=== PATIENT | female | born 1935 | race Caucasian/White ===

== ENCOUNTER 2019-07-02 19:05 | Emergency (ER) | payer MEDICARE, BC ==
--- NOTE | 2019-07-02 20:36 | EDM.PDOC ---
ED HPI GENERAL MEDICAL PROBLEM - General Chief Complaint: Syncope Stated Complaint: LIGHT HEADED DIZZY NASEAU Time Seen by Provider: 07/02/19 19:54 Source of Information: Reports: Patient, Family, RN Notes Reviewed History Limitations: Reports: No Limitations - History of Present Illness INITIAL COMMENTS - FREE TEXT/NARRATIVE: 84-year-old female presents to the emergency department a complaint of lightheadedness, she has had 3 episodes of near syncope 1 has been with activity to have been at rest feels very lightheaded will get flushed some nausea has not fallen. Does have a problem with low heart rate was considered for pacemaker several years ago however cardiology felt it was not appropriate at that time. No history of diabetes denies pain Pain Score (Numeric/FACES): 0 - Related Data Allergies Allergy/AdvReac Type Severity Reaction Status Date / Time codeine Allergy Swelling Verified 07/02/19 19:59 fish oil Allergy Rash Verified 07/02/19 19:59 iodine Allergy Swelling Verified 07/02/19 19:59 povidone-iodine Allergy Swelling Verified 07/02/19 19:59 [From Betadine] soap [From Betadine] Allergy Swelling Verified 07/02/19 19:59 valacyclovir HCl Allergy Rash Verified 07/02/19 19:59 [From Valtrex] morphine AdvReac Hallucinati Verified 07/02/19 19:59 ons shrimp flavor Allergy Rash Uncoded 07/02/19 19:59 Home Meds: Home Meds Acetaminophen [Pain Reliever] 500 mg PO DAILY PRN 10/15/13 [History] Escitalopram [Lexapro] 10 mg PO DAILY 10/15/13 [History] Levothyroxine Sodium [Tirosint] 75 mcg PO DAILY 10/15/13 [History] Potassium Chloride [Klor-Con M20] 20 meq PO DAILY 10/15/13 [History] Pravastatin Sodium 20 mg PO BEDTIME 10/15/13 [History] Topiramate 100 mg PO DAILY 10/15/13 [History] Triamterene/Hydrochlorothiazid [Dyazide 37.5-25] 1 cap PO DAILY 10/15/13 [ History] allopurinoL [Zyloprim] 450 mg PO DAILY 10/15/13 [History] Montelukast [Singulair] 10 mg PO ONETIME 05/26/15 [History] Potassium Chloride [Klor-Con 10] 10 meq PO DAILY 10/28/14 [History] Triamcinolone Acetonide [Kenalog 0.1% Crm] 1 applic TOP BID PRN 12/04/14 [ History] Baclofen 10 mg PO ASDIRECTED 07/02/19 [History] Past Medical History HEENT History: Reports: Other (See Below) Other HEENT History: SORE LEFT NARE Cardiovascular History: Reports: Arrhythmia, High Cholesterol, Hypertension, Other (See Below) Other Cardiovascular History: LOW HEART RATE Respiratory History: Reports: Asthma Gastrointestinal History: Reports: Cholelithiasis, Diverticulosis, Other (See Below) Other Gastrointestinal History: dumping syndrome Genitourinary History: Reports: Pyelonephritis, UTI, Recurrent 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: Musculoskeletal History: Reports: Fracture, Other (See Below) Other Musculoskeletal History: H/O BROKEN TAILBONE AND LEFT LOWER LEG FX Neurological History: Reports: Other (See Below) Other Neuro History: tremors Psychiatric History: Reports: Anxiety, Depression Endocrine/Metabolic History: Reports: Other (See Below) Other Endocrine/Metabolic History: thyroid disease Dermatologic History: Reports: Other (See Below) Other Dermatologic History: rash - Infectious Disease History Infectious Disease History: Reports: Chicken Pox, Measles, Mumps, Rubella, Shingles - Past Surgical History GI Surgical History: Reports: Cholecystectomy, Colonoscopy, EGD, Hernia Repair/ Other, Other (See Below) Other GI Surgeries/Procedures: bile duct removed Female Surgical History: Reports: Hysterectomy Social & Family History - Tobacco Use Smoking Status *Q: Never Smoker - Caffeine Use Caffeine Use: Reports: Coffee, Tea - Recreational Drug Use Recreational Drug Use: No ED ROS GENERAL - Review of Systems Review Of Systems: See Below Constitutional: Reports: No Symptoms HEENT: Reports: No Symptoms Respiratory: Reports: No Symptoms Cardiovascular: Reports: Lightheadedness GI/Abdominal: Reports: Nausea ED EXAM, GENERAL - Physical Exam Exam: See Below Exam Limited By: No Limitations General Appearance: Alert, WD/WN, No Apparent Distress Head: Atraumatic, Normocephalic Neck: Normal Inspection, Supple, Non-Tender, Full Range of Motion Respiratory/Chest: No Respiratory Distress, Lungs Clear, Normal Breath Sounds, No Accessory Muscle Use, Chest Non-Tender Cardiovascular: Regular Rate, Rhythm, No Murmur GI/Abdominal: Soft, Non-Tender Course - Vital Signs Last Recorded V/S: Last Vital Signs Temp 97.9 F 07/02/19 20:10 Pulse 62 07/02/19 21:28 Resp 17 07/02/19 21:28 BP 177/84 H 07/02/19 21:28 Pulse Ox 98 07/02/19 21:28 - Orders/Labs/Meds Orders: Active Orders 24 hr Category Date Time Status Cardiac Monitoring [RC] .As Directed Care 07/02/19 20:33 Active EKG Documentation Completion [RC] ASDIRECTED Care 07/02/19 20:34 Active EKG 12 Lead [EK] Stat Ther 07/02/19 20:34 Ordered Labs: Laboratory Tests 07/02/19 07/02/19 07/02/19 Range/Units 20:45 20:45 20:45 WBC 8.3 (4.5-11.0) K/uL RBC 3.90 (3.30-5.50) M/uL Hgb 12.2 D (12.0-15.0) g/dL Hct 35.5 L (36.0-48.0) % MCV 91 (80-98) fL MCH 31 (27-31) pg MCHC 34 (32-36) % Plt Count 231 (150-400) K/uL Neut % (Auto) 60 (36-66) % Lymph % (Auto) 26 (24-44) % [place] % (Auto) 11 H (2-6) % Eos % (Auto) 2 (2-4) % Baso % (Auto) 0 (0-1) % D-Dimer, Quantitative 181 (0.0-400.0) ng/mL Sodium 132 L (140-148) mmol/L Potassium 3.0 L (3.6-5.2) mmol/L Chloride 95 L (100-108) mmol/L Carbon Dioxide 28 (21-32) mmol/L Anion Gap 12.0 (5.0-14.0) mmol/L BUN 11 D (7-18) mg/dL Creatinine 1.0 (0.6-1.0) mg/dL Est Cr Clr Drug Dosing 39.03 mL/min Estimated GFR (MDRD) 53 L (>60) Glucose 99 (74-106) mg/dL Calcium 8.7 (8.5-10.1) mg/dL Total Bilirubin 0.2 (0.2-1.0) mg/dL AST 18 (15-37) U/L ALT 20 (12-78) U/L Alkaline Phosphatase 73 (46-116) U/L Troponin I < 0.017 (0.000-0.056) ng/mL Total Protein 6.4 (6.4-8.2) g/dL Albumin 3.3 L (3.4-5.0) g/dL Globulin 3.1 (2.3-3.5) g/dL Albumin/Globulin Ratio 1.1 L (1.2-2.2) TSH, Ultra Sensitive (0.358-3.740) uIU/mL 07/02/19 Range/Units 20:45 WBC (4.5-11.0) K/uL RBC (3.30-5.50) M/uL Hgb (12.0-15.0) g/dL Hct (36.0-48.0) % MCV (80-98) fL MCH (27-31) pg MCHC (32-36) % Plt Count (150-400) K/uL Neut % (Auto) (36-66) % Lymph % (Auto) (24-44) % [place] % (Auto) (2-6) % Eos % (Auto) (2-4) % Baso % (Auto) (0-1) % D-Dimer, Quantitative (0.0-400.0) ng/mL Sodium (140-148) mmol/L Potassium (3.6-5.2) mmol/L Chloride (100-108) mmol/L Carbon Dioxide (21-32) mmol/L Anion Gap (5.0-14.0) mmol/L BUN (7-18) mg/dL Creatinine (0.6-1.0) mg/dL Est Cr Clr Drug Dosing mL/min Estimated GFR (MDRD) (>60) Glucose (74-106) mg/dL Calcium (8.5-10.1) mg/dL Total Bilirubin (0.2-1.0) mg/dL AST (15-37) U/L ALT (12-78) U/L Alkaline Phosphatase (46-116) U/L Troponin I (0.000-0.056) ng/mL Total Protein (6.4-8.2) g/dL Albumin (3.4-5.0) g/dL Globulin (2.3-3.5) g/dL Albumin/Globulin Ratio (1.2-2.2) TSH, Ultra Sensitive 4.032 H (0.358-3.740) uIU/mL Departure - Departure Time of Disposition: 22:13 Disposition: Home, Self-Care 01 Condition: Fair Clinical Impression: Lightheadedness Instructions: Near-Syncope, [id number] Referrals: Angela Cline PA-C [Primary Care Provider] - Forms: ED Department Discharge Additional Instructions: Please contact your lead data entry operator in the morning call return to the emergency department worsening of symptoms Sepsis Event Note - Evaluation Sepsis Screening Result: No Definite Risk - Focused Exam Vital Signs: Vital Signs Temp Pulse Resp BP Pulse Ox 07/02/19 21:28 62 17 177/84 H 98 07/02/19 20:12 53 L 10 L 135/67 97 07/02/19 20:10 97.9 F 58 L 16 159/72 H 96 07/02/19 19:33 97.9 F 58 L 16 159/72 H 96 Date Exam was Performed: 07/02/19 Time Exam was Performed: 22:11 - My Orders Last 24 Hours: My Active Orders 07/02/19 20:33 Cardiac Monitoring [RC] .As Directed 07/02/19 20:34 EKG Documentation Completion [RC] ASDIRECTED EKG 12 Lead [EK] Stat - Assessment/Plan Last 24 Hours: My Active Orders 07/02/19 20:33 Cardiac Monitoring [RC] .As Directed 07/02/19 20:34 EKG Documentation Completion [RC] ASDIRECTED EKG 12 Lead [EK] Stat Plan: Assessment Acuity = acute Site and laterality = lightheadedness Etiology = suspicious for underlying arrhythmia Manifestations = none Location of injury = Home Lab values = CBC unremarkable potassium low at 3.0 consistent hypokalemia, troponin was negative, d-dimer negative thyroid slightly elevated 4.032 consistent with hyperthyroidism Plan She did have an event while she was here when she became lightheaded while lying down she was on the monitoring analyst this did reveal an underlying heart rate of 60 but significant artifact was noted in between the QRS complex possibly a flutter and she did have symptoms. We were unable to capture this on EKG. I did offer hospital administration for observation she declined a plan that she is going to call her lead data entry operator in the morning and discussed the possibility of an implantable loop recorder she did wear an event monitor for 48 hours while in [place] unfortunately no events were captured to provide the diagnosis per her report This note was dictated using [employer] voice recognition software please call with any questions on syntax or grammar.
[2019-07-02 21:29] VITALS: BP 177/84; PULSE 62
== END 2019-07-02 22:46 | disposition home or self-care (01) ==
LOC: JP.ED 19:05
DX: R42 Dizziness and giddiness (principal); I10 Essential (primary) hypertension; E78.00 Pure hypercholesterolemia, unspecified; J45.909 Unspecified asthma, uncomplicated; F32.9 Major depressive disorder, single episode, unspecified; F41.9 Anxiety disorder, unspecified; E07.9 Disorder of thyroid, unspecified; Z88.8 Allergy status to other drugs, medicaments and biological substances; Z88.5 Allergy status to narcotic agent; Z88.1 Allergy status to other antibiotic agents; Z91.018 Allergy to other foods; Z79.899 Other long term (current) drug therapy; Z79.890 Hormone replacement therapy
CPT/HCPCS: 36415; 80053; 84443; 84484; 85025; 85379; 93005; 93010; 99284-25

== ENCOUNTER 2019-10-11 19:59 | Emergency (ER) | payer MEDICARE, BC ==
[2019-10-11 20:28] VITALS: BP 155/78; PULSE 56
[2019-10-11] MEDS ORDERED: Baclofen 10 MG Tab PO ONE (21:13)
[2019-10-11] MEDS ORDERED: Ketorolac 60 MG/2 ML SDV IM ONE (21:13)
--- NOTE | 2019-10-11 21:21 | EDM.PDOC ---
ED HPI GENERAL MEDICAL PROBLEM - General Chief Complaint: Back Pain or Injury Stated Complaint: BACK PAIN Time Seen by Provider: 10/11/19 21:17 Source of Information: Reports: Patient History Limitations: Reports: No Limitations - History of Present Illness INITIAL COMMENTS - FREE TEXT/NARRATIVE: pt arrived having signifcant pain in the left lower back area going over the left buttock. She did sit in a car all day today and she had a holter monitor placed. Onset: Gradual, Other (pt started to have pain on Sat. 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: Reports: Other (see below) Other Treatments JOINERY PATTERNMAKER: ibuprofen Lower Back Pain Score (Numeric/FACES): 10 - Related Data Allergies Allergy/AdvReac Type Severity Reaction Status Date / Time codeine Allergy Swelling Verified 10/12/19 20:22 fish oil Allergy Rash Verified 10/12/19 20:22 iodine Allergy Swelling Verified 10/12/19 20:22 oxycodone Allergy Hallucinati Verified 10/12/19 20:22 ons povidone-iodine Allergy Swelling Verified 10/12/19 20:22 [From Betadine] soap [From Betadine] Allergy Swelling Verified 10/12/19 20:22 valacyclovir HCl Allergy Rash Verified 10/12/19 20:22 [From Valtrex] morphine AdvReac Hallucinati Verified 10/12/19 20:22 ons shrimp flavor Allergy Rash Uncoded 10/12/19 20:22 Home Meds: Home Meds Acetaminophen [Pain Reliever] 500 mg PO BID PRN 10/15/13 [History] Escitalopram [Lexapro] 10 mg PO DAILY 10/15/13 [History] Levothyroxine Sodium [Tirosint] 75 mcg PO DAILY 10/15/13 [History] Pravastatin Sodium 20 mg PO BEDTIME 10/15/13 [History] Topiramate 1.5 tab PO DAILY 10/15/13 [History] Triamterene/Hydrochlorothiazid [Dyazide 37.5-25] 1 cap PO DAILY 10/15/13 [ History] allopurinoL [Zyloprim] 450 mg PO DAILY 10/15/13 [History] Montelukast [Singulair] 10 mg PO BEDTIME 10/28/14 [History] Potassium Chloride [Klor-Con 10] 20 meq PO BID 10/28/14 [History] Triamcinolone Acetonide [Kenalog 0.1% Crm] 1 applic TOP BID PRN 12/04/14 [ History] Bismuth Subsalicylate [Pepto Bismol] 2 tab PO DAILY 07/30/19 [History] Carboxymethylcellulose Sodium [Artificial Tears] 1 drop EYEBOTH DAILY 07/30/19 [ History] Fluticasone Propionate [Flonase Allergy Relief] 1 spray SHANTEL DAILY 07/30/19 [ History] QUEtiapine [SEROquel] 0.25 - 0.5 tab PO BEDTIME PRN 07/30/19 [History] Gabapentin [Neurontin] 300 mg PO TID 10/12/19 [History] Metoclopramide [Reglan] 5 - 10 mg PO Q8H PRN #15 tab 10/12/19 [Rx] Past Medical History HEENT History: Reports: Other (See Below) Other HEENT History: SORE LEFT NARE Cardiovascular History: Reports: Arrhythmia, High Cholesterol, Hypertension, Other (See Below) Other Cardiovascular History: LOW HEART RATE Respiratory History: Reports: Asthma Gastrointestinal History: Reports: Cholelithiasis, Diverticulosis, Other (See Below) Other Gastrointestinal History: dumping syndrome Genitourinary History: Reports: Pyelonephritis, UTI, Recurrent 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: Musculoskeletal History: Reports: Fracture, Other (See Below) Other Musculoskeletal History: H/O BROKEN TAILBONE AND LEFT LOWER LEG FX Neurological History: Reports: Other (See Below) Other Neuro History: tremors Psychiatric History: Reports: Anxiety, Depression Endocrine/Metabolic History: Reports: Other (See Below) Other Endocrine/Metabolic History: thyroid disease Dermatologic History: Reports: Other (See Below) Other Dermatologic History: rash - Infectious Disease History Infectious Disease History: Reports: Chicken Pox, Measles, Mumps, Rubella, Shingles - Past Surgical History Other Cardiovascular Surgeries/Procedures: holter monitor placed in [place] today 10/11/2019 GI Surgical History: Reports: Cholecystectomy, Colonoscopy, EGD, Hernia Repair/ Other, Other (See Below) Other GI Surgeries/Procedures: bile duct removed Female Surgical History: Reports: Hysterectomy Social & Family History - Family History Family Medical History: Noncontributory - Tobacco Use Smoking Status *Q: Never Smoker - Caffeine Use Caffeine Use: Reports: Coffee Other Caffeine Use: one cappucino in the morning - Recreational Drug Use Recreational Drug Use: No ED ROS GENERAL - Review of Systems Review Of Systems: See Below Constitutional: Reports: No Symptoms HEENT: Reports: No Symptoms Respiratory: Reports: No Symptoms Cardiovascular: Reports: No Symptoms Endocrine: Reports: No Symptoms GI/Abdominal: Reports: No Symptoms Musculoskeletal: Reports: Back Pain ED EXAM,LOWER BACK PAIN/INJURY - Physical Exam Exam: See Below Text/Narrative:: pt arrived with pain in the left lower lumbar area and going down the left leg. She states this started on Sat and it got alot worse today after the car ride to [place]. Exam Limited By: No Limitations General Appearance: Alert, Anxious Ears: Normal TMs Nose: Normal Inspection Throat/Mouth: Normal Inspection Head: Atraumatic Neck: Normal Inspection Respiratory/Chest: No Respiratory Distress Cardiovascular: Regular Rate, Rhythm GI/Abdominal: Soft, Non-Tender Back Exam: Other ( tender over the left buttock going down the left leg. ) Course - Vital Signs Last Recorded V/S: Last Vital Signs Temp 36.4 C 10/11/19 20:20 Pulse 56 L 10/11/19 20:20 Resp 16 10/11/19 20:20 BP 155/78 H 10/11/19 20:20 Pulse Ox 99 10/11/19 20:20 - Orders/Labs/Meds Labs: Laboratory Tests 10/11/19 10/11/19 10/11/19 Range/Units 21:15 21:16 21:28 WBC 8.4 (4.5-11.0) K/uL RBC 4.30 (3.30-5.50) M/uL Hgb 13.2 (12.0-15.0) g/dL Hct 38.6 (36.0-48.0) % MCV 90 (80-98) fL MCH 31 (27-31) pg MCHC 34 (32-36) % Plt Count 259 (150-400) K/uL Neut % (Auto) 90 H (36-66) % Lymph % (Auto) 9 L (24-44) % [place] % (Auto) 1 L (2-6) % Eos % (Auto) 0 L (2-4) % Baso % (Auto) 0 (0-1) % Sodium 127 L (140-148) mmol/L Potassium 3.8 (3.6-5.2) mmol/L Chloride 93 L (100-108) mmol/L Carbon Dioxide 26 (21-32) mmol/L Anion Gap 11.8 (5.0-14.0) mmol/L BUN 13 (7-18) mg/dL Creatinine 1.2 H (0.6-1.0) mg/dL Est Cr Clr Drug Dosing 32.52 mL/min Estimated GFR (MDRD) 43 L (>60) Glucose 142 H (74-106) mg/dL Calcium 8.7 (8.5-10.1) mg/dL Urine Color Yellow (YELLOW) Urine Appearance Clear (CLEAR) Urine pH 8.5 H (5.0-8.0) Ur Specific [place] 1.020 (1.008-1.030) Urine Protein Negative (NEGATIVE) mg/dL Urine Glucose (UA) Negative (NEGATIVE) mg/dL Urine Ketones Negative (NEGATIVE) mg/dL Urine Occult Blood Trace-intact H (NEGATIVE) Urine Nitrite Negative (NEGATIVE) Urine Bilirubin Negative (NEGATIVE) Urine Urobilinogen 0.2 (0.2-1.0) EU/dL Ur Leukocyte Esterase Negative (NEGATIVE) Urine RBC 0-5 (0-5) Urine WBC 5-10 H (0-5) Ur Epithelial Cells Few Amorphous Sediment Not seen Urine Bacteria Many Urine Mucus Not seen Urine Other Meds: Medications Discontinued Medications Generic Name Dose Route Start Last Admin Trade Name Freq PRN Reason Stop Dose Admin Baclofen 10 mg 10/11/19 21:13 10/11/19 21:18 Lioresal PO 10/11/19 21:14 10 mg ONETIME ONE Administration Ketorolac Tromethamine 60 mg 10/11/19 21:13 10/11/19 21:18 Toradol IM 10/11/19 21:14 60 mg ONETIME ONE Administration Tramadol HCl 50 mg 10/11/19 21:54 10/11/19 22:08 Ultram PO 10/11/19 21:55 50 mg ONETIME ONE Administration - Re-Assessments/Exams Free Text/Narrative Re-Assessment/Exam: 10/11/19 22:06 pt has sig narrowing at L5-s1. She is having pain going down the left leg. Her urine is cultured as it looks like she could have a uti. Departure - Departure Time of Disposition: 22:40 Disposition: Home, Self-Care 01 Condition: Fair Clinical Impression: Lumbar disc disease with radiculopathy - Discharge Information Instructions: Degenerative Disk Disease Referrals: Angela Cline PA-C [Primary Care Provider] - Forms: ED Department Discharge Care Plan Goals: moist warm packs to the left lower gómez, follow with a cool pack, try to do some walking tomorrow , no lifting or turning. Pt will be placed on baclofen 10mg qam to relax muscle, gabepentin 300mg tid for nerve pain, tramodol 50 mg q6h as need for severe pain. Sepsis Event Note - Evaluation Sepsis Screening Result: No Definite Risk - Focused Exam Date Exam was Performed: 10/16/19 Time Exam was Performed: 07:59
[2019-10-11] MEDS ORDERED: traMADol 50 MG Tab PO ONE (21:54)
--- NOTE | 2019-10-14 10:36 | CR ---
Lumbar Spine Min 4V CLINICAL HISTORY: Low back and left leg pain FINDINGS: There is mild compression of L1. This may have progressed slightly since 2015. Patient is moderate the extra rotoscoliosis. There is diffuse degenerative disc disease and diffuse spondylosis. There is a minimal retrolisthesis of L2 on L3 which is due to facet disease which is seen to severe degree throughout IMPRESSION: Minimal L1 compression deformity of remote chronology Severe dextrorotoscoliosis Severe diffuse degenerative disc disease Severe facet osteoarthropathy
== END 2019-10-11 22:38 | disposition home or self-care (01) ==
LOC: JP.ED 19:59
DX: M51.16 Intervertebral disc disorders with radiculopathy, lumbar region (principal); E78.00 Pure hypercholesterolemia, unspecified; I10 Essential (primary) hypertension; J45.909 Unspecified asthma, uncomplicated; F41.9 Anxiety disorder, unspecified; F32.9 Major depressive disorder, single episode, unspecified; E07.9 Disorder of thyroid, unspecified; Z79.899 Other long term (current) drug therapy; Z91.09 Other allergy status, other than to drugs and biological substances; Z88.5 Allergy status to narcotic agent; Z91.013 Allergy to seafood; Z88.8 Allergy status to other drugs, medicaments and biological substances
CPT/HCPCS: 36415; 72110; 80048; 81001; 85025; 87086; 96372; 99284; A9270; J1885; 99283

== ENCOUNTER 2019-10-12 20:07 | Emergency (ER) | payer MEDICARE, BC ==
[2019-10-12 20:26] VITALS: BP 163/65; PULSE 56
[2019-10-12] MEDS ORDERED: Sodium Chloride 0.9% 1,000 ML IV ONE (20:28)
[2019-10-12] MEDS ORDERED: Metoclopramide 10 MG/2 ML SDV IVPUSH ONE (20:29)
--- NOTE | 2019-10-12 20:44 | EDM.PDOC ---
ED HPI GENERAL MEDICAL PROBLEM - General Chief Complaint: Gastrointestinal Problem Stated Complaint: VOMITING Time Seen by Provider: 10/12/19 20:39 Source of Information: Reports: Patient, Old Records, RN History Limitations: Reports: No Limitations - History of Present Illness INITIAL COMMENTS - FREE TEXT/NARRATIVE: 84 yo female who was here last night for low back pain returns tonight for nausea and vomiting. No abdominal pain or distention. No fever or known exposures. No blood in her emesis. Took a first ever dose of gabapentin this morning about 2 hrs before her vomiting. The gabapentin has helped her back pain. Dr. Thompson gave this last night. Is not dizzy with standing. Onset: Today Onset Date: 10/12/19 Onset Time: 11:00 Duration: Hour(s): Location: Reports: Abdomen (no pain) Quality: Reports: Other (none) Severity: Moderate (nausea) Improves with: Reports: None Worsens with: Reports: Other (unknown) Context: Reports: Other (See HPI) Associated Symptoms: Reports: Nausea/Vomiting. Denies: Chest Pain, Cough, Fever /Chills, Weakness Treatments LEAD PRODUCER: Reports: Other (see below) (none) - Related Data Allergies Allergy/AdvReac Type Severity Reaction Status Date / Time codeine Allergy Swelling Verified 10/12/19 20:22 fish oil Allergy Rash Verified 10/12/19 20:22 iodine Allergy Swelling Verified 10/12/19 20:22 oxycodone Allergy Hallucinati Verified 10/12/19 20:22 ons povidone-iodine Allergy Swelling Verified 10/12/19 20:22 [From Betadine] soap [From Betadine] Allergy Swelling Verified 10/12/19 20:22 valacyclovir HCl Allergy Rash Verified 10/12/19 20:22 [From Valtrex] morphine AdvReac Hallucinati Verified 10/12/19 20:22 ons shrimp flavor Allergy Rash Uncoded 10/12/19 20:22 Home Meds: Home Meds Acetaminophen [Pain Reliever] 500 mg PO BID PRN 10/15/13 [History] Escitalopram [Lexapro] 10 mg PO DAILY 10/15/13 [History] Levothyroxine Sodium [Tirosint] 75 mcg PO DAILY 10/15/13 [History] Pravastatin Sodium 20 mg PO BEDTIME 10/15/13 [History] Topiramate 1.5 tab PO DAILY 10/15/13 [History] Triamterene/Hydrochlorothiazid [Dyazide 37.5-25] 1 cap PO DAILY 10/15/13 [ History] allopurinoL [Zyloprim] 450 mg PO DAILY 10/15/13 [History] Montelukast [Singulair] 10 mg PO BEDTIME 10/28/14 [History] Potassium Chloride [Klor-Con 10] 20 meq PO BID 10/28/14 [History] Triamcinolone Acetonide [Kenalog 0.1% Crm] 1 applic TOP BID PRN 12/04/14 [ History] Bismuth Subsalicylate [Pepto Bismol] 2 tab PO DAILY 07/30/19 [History] Carboxymethylcellulose Sodium [Artificial Tears] 1 drop EYEBOTH DAILY 07/30/19 [ History] Fluticasone Propionate [Flonase Allergy Relief] 1 spray SHANTEL DAILY 07/30/19 [ History] QUEtiapine [SEROquel] 0.25 - 0.5 tab PO BEDTIME PRN 07/30/19 [History] Gabapentin [Neurontin] 300 mg PO TID 10/12/19 [History] Past Medical History HEENT History: Reports: Other (See Below) Other HEENT History: SORE LEFT NARE Cardiovascular History: Reports: Arrhythmia, High Cholesterol, Hypertension, Other (See Below) Other Cardiovascular History: LOW HEART RATE Respiratory History: Reports: Asthma Gastrointestinal History: Reports: Cholelithiasis, Diverticulosis, Other (See Below) Other Gastrointestinal History: dumping syndrome Genitourinary History: Reports: Pyelonephritis, UTI, Recurrent FOREST AIDE History: Reports: Musculoskeletal History: Reports: Fracture, Other (See Below) Other Musculoskeletal History: H/O BROKEN TAILBONE AND LEFT LOWER LEG FX Neurological History: Reports: Other (See Below) Other Neuro History: tremors Psychiatric History: Reports: Anxiety, Depression Endocrine/Metabolic History: Reports: Other (See Below) Other Endocrine/Metabolic History: thyroid disease Dermatologic History: Reports: Other (See Below) Other Dermatologic History: rash - Infectious Disease History Infectious Disease History: Reports: Chicken Pox, Measles, Mumps, Rubella, Shingles - Past Surgical History Other Cardiovascular Surgeries/Procedures: holter monitor placed in [place] today 10/11/2019 GI Surgical History: Reports: Cholecystectomy, Colonoscopy, EGD, Hernia Repair/ Other, Other (See Below) Other GI Surgeries/Procedures: bile duct removed Female Surgical History: Reports: Hysterectomy Social & Family History - Family History Family Medical History: Noncontributory - Tobacco Use Smoking Status *Q: Never Smoker Second Hand Smoke Exposure: No - Caffeine Use Caffeine Use: Reports: Coffee Other Caffeine Use: one cappucino in the morning - Recreational Drug Use Recreational Drug Use: No ED ROS GENERAL - Review of Systems Review Of Systems: See Below Constitutional: Reports: Malaise HEENT: Reports: No Symptoms Respiratory: Reports: No Symptoms Cardiovascular: Reports: No Symptoms GI/Abdominal: Reports: Nausea, Vomiting. Denies: Abdominal Pain, Anorexia, Black Stool, Bloody Stool, Constipation, Diarrhea, Hematemesis, Hematochezia, Melena : Reports: No Symptoms Musculoskeletal: Reports: Back Pain (chronic) Skin: Reports: No Symptoms Neurological: Reports: No Symptoms Psychiatric: Reports: No Symptoms ED EXAM, GI/ABD - Physical Exam Exam: See Below Exam Limited By: No Limitations General Appearance: Alert, WD/WN, No Apparent Distress Eyes: Bilateral: Normal Appearance Ears: Normal External Exam, Normal Canal, Hearing Grossly Normal, Normal TMs Throat/Mouth: Normal Inspection, Normal Lips, Normal Oropharynx, Normal Voice, No Airway Compromise Head: Atraumatic, Normocephalic Neck: Normal Inspection Respiratory/Chest: No Respiratory Distress, Lungs Clear, Normal Breath Sounds, No Accessory Muscle Use Cardiovascular: Regular Rate, Rhythm, No Edema GI/Abdominal Exam: Normal Bowel Sounds, Soft, Non-Tender, No Distention Back Exam: Normal Inspection. No: CVA Tenderness (R), CVA Tenderness (L) Extremities: Normal Inspection, Normal Range of Motion, Non-Tender, No Pedal Edema Neurological: Alert, Oriented, CN II-XII Intact, Normal Cognition, No Motor/ Sensory Deficits Psychiatric: Normal Affect, Normal Mood Skin Exam: Warm, Dry, Intact, Normal Color, No Rash Course - Vital Signs Last Recorded V/S: Last Vital Signs Temp 36.1 C 10/12/19 20:25 Pulse 56 L 10/12/19 20:25 Resp 18 10/12/19 20:25 BP 163/65 H 10/12/19 20:25 Pulse Ox 97 10/12/19 20:25 - Orders/Labs/Meds Meds: Medications Discontinued Medications Generic Name Dose Route Start Last Admin Trade Name Terrell PRN Reason Stop Dose Admin Sodium Chloride 1,000 mls @ 1,000 mls/hr 10/12/19 20:28 10/12/19 20:41 Normal Saline IV 10/12/19 21:27 1,000 mls/hr .BOLUS ONE Administration Metoclopramide HCl 5 mg 10/12/19 20:29 10/12/19 20:40 Reglan IVPUSH 10/12/19 20:30 5 mg ONETIME ONE Administration - Re-Assessments/Exams Free Text/Narrative Re-Assessment/Exam: 10/12/19 22:02 Feeling much better, eating a snack! Departure - Departure Time of Disposition: 22:02 Disposition: Home, Self-Care 01 Condition: Good Clinical Impression: Nausea & vomiting Qualifiers: Vomiting type: unspecified Vomiting Intractability: non-intractable Qualified Code(s): R11.2 - Nausea with vomiting, unspecified - Discharge Information *PRESCRIPTION DRUG MONITORING PROGRAM REVIEWED*: Not Applicable *COPY OF PRESCRIPTION DRUG MONITORING REPORT IN PATIENT JOSE: Not Applicable Instructions: Nausea, Adult, [id number] Referrals: PCP,None [Primary Care Provider] - Forms: ED Department Discharge Additional Instructions: Light diet tonight, advance diet slowly as tolerated. Take metoclopramide as needed to control your nausea. Recheck if worse. Sepsis Event Note - Evaluation Sepsis Screening Result: No Definite Risk - Focused Exam Vital Signs: Vital Signs Temp Pulse Resp BP Pulse Ox 10/12/19 20:25 36.1 C 56 L 18 163/65 H 97 Date Exam was Performed: 10/12/19 Time Exam was Performed: 22:02
[2019-10-12] MEDS ORDERED: Metoclopramide 10 MG Tab PO ONE (22:06)
== END 2019-10-12 22:45 | disposition home or self-care (01) ==
LOC: JP.ED 20:07
DX: R11.2 Nausea with vomiting, unspecified (principal); E78.00 Pure hypercholesterolemia, unspecified; I10 Essential (primary) hypertension; J45.909 Unspecified asthma, uncomplicated; Z90.710 Acquired absence of both cervix and uterus; Z88.5 Allergy status to narcotic agent; Z91.018 Allergy to other foods; Z88.8 Allergy status to other drugs, medicaments and biological substances; Z79.899 Other long term (current) drug therapy
CPT/HCPCS: 96361; 96374; 99283; A9270; J2765; J7030; 99284

== ENCOUNTER 2020-01-10 06:43 | Day surgery (SDC) | payer MEDICARE, BC ==
[2020-01-10] MEDS ORDERED: Propofol 200 MG/20 ML SDV ONE (07:11)
[2020-01-10] MEDS ORDERED: fentaNYL 100 MCG/2 ML SDV ONE (07:11)
[2020-01-10] MEDS ORDERED: Dextrose 5%-Lactated Ringers 1,000 ML IV SCH (07:30)
[2020-01-10 10:19] VITALS: BP 131/66; PULSE 56
--- NOTE | 2020-01-16 09:55 | OR ---
DATE OF PROCEDURE: 01/10/2020 SURGEON: Tristen Mota MD PREOPERATIVE DIAGNOSIS: Dysphagia and epigastric discomfort. POSTOPERATIVE DIAGNOSES: Dysphagia and epigastric discomfort associated with: 1. Small (likely asymptomatic) Zenker's diverticulum. 2. Mild esophageal stricture with retained food within esophagus suggestive of esophageal motility dysfunction. OPERATIVE PROCEDURE: Esophagogastroduodenoscopy with: 1. Dilation of esophagogastric junction (50051). 2. Removal of foreign body (ingested food) from distal esophagus (29836). ANESTHESIA: IV sedation. INDICATIONS FOR PROCEDURE: This is an 84-year-old female presenting with some ongoing epigastric discomfort as well as some dysphagia referable to distal esophagus. She has had upper GI endoscopies and dilations previously. The plan is to proceed with upper GI endoscopy with dilation and/or biopsies as indicated. Potential risks including bleeding and perforation were discussed, and the patient wishes to proceed. DETAILS OF PROCEDURE: The patient was taken to the operating room, placed in a left lateral decubitus position. IV sedation was administered, after which the upper GI endoscope was passed orally through the length of the esophagus and into the stomach with retroflexion view of the fundus, thereafter through the pyloric channel and into the proximal duodenum. Findings included normal hypopharynx, larynx, and upper esophageal sphincter. Within the esophageal body as one passed more distally, there was some retained solid food present. The esophagogastric junction was open enough that the food could be pushed downward out of the esophagus, removing the foreign body from esophagus in a more safe manner, i.e. into the stomach. The patient was noted to have a mild esophageal stricture. Otherwise, the remainder of the stomach and duodenal exams were unremarkable. At this point, a guidewire was passed into the stomach as the gastroscope was withdrawn. A 54-Finnish Savary dilator was then passed over the guidewire and then held in position for 1 minute. At that point, the wire and dilator were removed. The upper endoscope was then passed orally once again and the patient was noted to have some visible dilation of the esophagus with some heme present around the dilation site. The scope was then withdrawn and the procedure concluded. There were no evident complications. At this point, we will continue the patient on Protonix which should limit problems with inflammation related to reflux disease. She probably has some element of dysmotility of the esophagus and she will be instructed to stay on a full liquid diet for 48 hours and then begin a soft solid diet, chewing food well with frequent sips of water. She will be set up to see Dr. Wright in 1 month. Tristen Mota MD /[id number]
== END 2020-01-10 10:22 | disposition home or self-care (01) ==
LOC: JP.SDS 06:43
PROVIDERS: ATTEND Surgery
DX: K22.5 Diverticulum of esophagus, acquired (principal); K22.2 Esophageal obstruction; T18.128A Food in esophagus causing other injury, initial encounter; J44.9 Chronic obstructive pulmonary disease, unspecified; F41.9 Anxiety disorder, unspecified; N18.9 Chronic kidney disease, unspecified; E03.9 Hypothyroidism, unspecified; Z88.8 Allergy status to other drugs, medicaments and biological substances
CPT/HCPCS: 43247; 43248; J2704; J7121; J3010

== ENCOUNTER 2020-05-20 09:40 | Inpatient (IN) | payer MEDICARE, BC ==
--- NOTE | 2020-05-20 10:40 | EDM.PDOC ---
ED HPI GENERAL MEDICAL PROBLEM - General Chief Complaint: General Stated Complaint: LOW POTASSIUM Time Seen by Provider: 05/20/20 10:15 Source of Information: Reports: Patient, Family History Limitations: Reports: No Limitations - History of Present Illness INITIAL COMMENTS - FREE TEXT/NARRATIVE: 85-year-old female who was seen in the clinic yesterday for a possible UTI and progressive weakness, was found to have a potassium of only 2.5 and gram- positive rods in her urine. She has not had antibiotic treatment of the UTI. Today she could not get out of her chair, is having trouble ambulating and has persistent nausea as well as lower abdominal discomfort. No vomiting, denies shortness of breath currently or chest pain. No recent falls. Onset: Unknown/Unsure Duration: Day(s): (Symptoms have been progressively worsening for the last several days) Associated Symptoms: Reports: Confusion (Mild confusion), Loss of Appetite, Malaise, Weakness. Denies: Chest Pain, Diaphoresis, Fever/Chills - Related Data Allergies Allergy/AdvReac Type Severity Reaction Status Date / Time albuterol Allergy Cannot Verified 05/20/20 10:30 Remember codeine Allergy Swelling Verified 05/20/20 10:30 fish oil Allergy Rash Verified 05/20/20 10:30 Iodinated Contrast Media Allergy Hives Verified 05/20/20 10:30 iodine Allergy Swelling Verified 05/20/20 10:30 oxycodone Allergy Hallucinati Verified 05/20/20 10:30 ons povidone-iodine Allergy Swelling Verified 05/20/20 10:30 [From Betadine] soap [From Betadine] Allergy Swelling Verified 05/20/20 10:30 valacyclovir HCl Allergy Rash Verified 05/20/20 10:30 [From Valtrex] fentanyl AdvReac Nausea Verified 05/20/20 10:52 morphine AdvReac Hallucinati Verified 05/20/20 10:30 ons shrimp flavor Allergy Rash Uncoded 05/20/20 10:30 vitamins- minerals Allergy Cannot Uncoded 05/20/20 10:30 Remember Home Meds: Home Meds Acetaminophen [Pain Reliever] 500 mg PO BID PRN 10/15/13 [History] Escitalopram [Lexapro] 10 mg PO DAILY 10/15/13 [History] Pravastatin Sodium 20 mg PO BEDTIME 10/15/13 [History] Topiramate 1.5 tab PO DAILY 10/15/13 [History] Triamterene/Hydrochlorothiazid [Dyazide 37.5-25] 1 cap PO DAILY 10/15/13 [His tory] Montelukast [Singulair] 10 mg PO BEDTIME 10/28/14 [History] Triamcinolone Acetonide [Kenalog 0.1% Crm] 1 applic TOP BID PRN 12/04/14 [History] Fluticasone Propionate [Flonase Allergy Relief] 1 spray SHANTEL DAILY 07/30/19 [History] Cyclobenzaprine [Flexeril] 10 mg PO TID PRN 01/07/20 [History] Ibuprofen [Advil] 200 mg PO Q6H PRN 01/07/20 [History] Levothyroxine Sodium [Synthroid] 75 mcg PO DAILY 01/07/20 [History] Pantoprazole Sodium [Protonix] 40 mg PO DAILY 01/07/20 [History] Budesonide [Budesonide EC] 3 mg PO ASDIRECTED 05/20/20 [History] Carbidopa/Levodopa [Sinemet 25-100 mg Tablet] 1 tab PO TID 05/20/20 [History] Carboxymethylcellulose Sodium [Artificial Tears] 1 drop EYEBOTH DAILY 05/20/20 [History] Potassium Chloride [Klor-Con M20] 20 meq PO BID 05/20/20 [History] allopurinoL [Zyloprim] 150 mg PO DAILY 05/20/20 [History] Past Medical History HEENT History: Reports: Hard of Hearing, Other (See Below) Other HEENT History: SORE LEFT NARE Cardiovascular History: Reports: Arrhythmia, High Cholesterol, Hypertension, Other (See Below) Other Cardiovascular History: LOW HEART RATE Respiratory History: Reports: Asthma, COPD, SOB Gastrointestinal History: Reports: Cholelithiasis, Diverticulosis, Irritable Bowel Syndrome, Other (See Below) Other Gastrointestinal History: dumping syndrome Genitourinary History: Reports: Pyelonephritis, UTI, Recurrent REDUCER History: Reports: Musculoskeletal History: Reports: Fracture, Other (See Below) Other Musculoskeletal History: H/O BROKEN TAILBONE AND LEFT LOWER LEG FX Neurological History: Reports: Other (See Below) Other Neuro History: tremors Psychiatric History: Reports: Anxiety, Depression Endocrine/Metabolic History: Reports: Other (See Below) Other Endocrine/Metabolic History: thyroid disease Oncologic (Cancer) History: Reports: Uterine Dermatologic History: Reports: Other (See Below) Other Dermatologic History: rash - Infectious Disease History Infectious Disease History: Reports: Chicken Pox, Measles, Mumps, Shingles - Past Surgical History HEENT Surgical History: Reports: Cataract Surgery Other Cardiovascular Surgeries/Procedures: holter monitor placed in [place] today 10/11/2019 GI Surgical History: Reports: Cholecystectomy, Colonoscopy, EGD, Hernia Repair/Other, Other (See Below) Other GI Surgeries/Procedures: bile duct removed Female Surgical History: Reports: Hysterectomy Social & Family History - Family History Family Medical History: No Pertinent Family History - Tobacco Use Tobacco Use Status *Q: Never Tobacco User - Caffeine Use Caffeine Use: Reports: Tea Other Caffeine Use: one cappucino in the morning - Recreational Drug Use Recreational Drug Use: No ED ROS GENERAL - Review of Systems Review Of Systems: See Below Constitutional: Reports: Malaise. Denies: Fever, Chills HEENT: Denies: Throat Pain Respiratory: Reports: Shortness of Breath (Intermittent shortness of breath with activity, none currently) Cardiovascular: Denies: Chest Pain, Palpitations GI/Abdominal: Reports: Abdominal Pain (Some lower abdominal discomfort especially with palpation). Denies: Constipation, Diarrhea Neurological: Reports: Weakness, Other (History of Parkinson's, on medication) ED EXAM, GENERAL - Physical Exam Exam: See Below Exam Limited By: No Limitations General Appearance: Alert, No Apparent Distress, Other (Frail, weak appearing elderly female in no distress) Eye Exam: Bilateral Eye: EOMI, Other (No jaundice) Head: Atraumatic Neck: Supple, Non-Tender Respiratory/Chest: Other (Chronic sounding crackles in the extreme bases, somewhat worse on the left) Cardiovascular: Regular Rate, Rhythm. No: Extra Beats GI/Abdominal: Normal Bowel Sounds, Soft, Tender (Reacts with some tenderness to palpation just above the symphysis pubis, no guarding or rebound) Extremities: Other (Just a trace of ankle edema, symmetric bilaterally) Neurological: Alert, Oriented, Slow to Respond (A little slow to respond) Psychiatric: Flat Affect Skin Exam: Warm, Dry Course - Vital Signs Last Recorded V/S: Last Vital Signs Temp 96.4 F L 05/21/20 07:10 Pulse 52 L 05/21/20 07:10 Resp 12 05/21/20 07:10 BP 113/49 L 05/21/20 07:10 Pulse Ox 97 05/21/20 07:10 - Orders/Labs/Meds Orders: Medication Orders Acetaminophen (Tylenol) 650 mg PO Q4H PRN PRN Reason: Pain (Mild 1-3)/fever Allopurinol (Zyloprim) 150 mg PO DAILY [facility] Artificial Tears (Genteal Mild To Moderate Ophth Soln) 0 ml EYEBOTH DAILY [facility] Carbidopa/Levodopa (Sinemet 25-100 Mg) 1 tab PO TID [facility] Last Admin: 05/20/20 20:36 Dose: 1 tab Documented by: Admin: 05/20/20 15:18 Dose: 1 tab Documented by: JO Escitalopram Oxalate (Lexapro) 10 mg PO DAILY [facility] Fluticasone Propionate (Flonase) 0 gm SHANTEL DAILY [facility] Potassium Chloride/Sodium Chloride (Normal Saline With 20 Meq Kcl) 1,000 mls @ 125 mls/hr IV ASDIRECTED [facility] Last Admin: 05/20/20 23:37 Dose: 125 mls/hr Documented by: Infusion: 05/20/20 22:55 Dose: 125 mls/hr Documented by: Admin: 05/20/20 14:55 Dose: 125 mls/hr Documented by: JO Ceftriaxone Sodium 1 gm/ (Sodium Chloride) 50 mls @ 100 mls/hr IV Q24H [facility] Potassium Chloride 20 meq/Lidocaine HCl 2 ml/ Sodium Chloride 112 mls @ 50 mls/hr IV ONETIME ONE Stop: 05/21/20 07:59 Last Admin: 05/21/20 06:09 Dose: Not Given Documented by: PAYTON Potassium Chloride 20 meq/ (Premix) 100 mls @ 50 mls/hr IV ONETIME ONE Stop: 05/21/20 07:44 Last Admin: 05/21/20 06:24 Dose: 50 mls/hr Documented by: PAYTON Lactobacillus Rhamnosus (Culturelle) 1 cap PO BID [facility] Last Admin: 05/20/20 20:35 Dose: 1 cap Documented by: VI Levothyroxine Sodium 25 mcg/ (Levothyroxine Sodium 50 mcg) 75 mcg PO ACBREAKFAST [facility] Lorazepam (Ativan) 0.5 mg IVPUSH Q4H PRN PRN Reason: Nausea/Vomiting Magnesium Hydroxide (Milk Of Magnesia) 30 ml PO Q12H PRN PRN Reason: Constipation Melatonin (Melatonin) 6 mg PO BEDTIME [facility] Last Admin: 05/20/20 20:35 Dose: 6 mg Documented by: VI Montelukast Sodium (Singulair) 10 mg PO BEDTIME [facility] Last Admin: 05/20/20 20:58 Dose: 10 mg Documented by: VI Non-Formulary Medication (Budesonide [Budesonide Ec]) 9 mg PO DAILY [facility] Ondansetron HCl (Zofran) 4 mg IV Q6H PRN PRN Reason: Nausea/Vomiting Ondansetron HCl (Zofran Odt) 4 mg PO Q6H PRN PRN Reason: Nausea able to take PO Pantoprazole Sodium (Protonix) 40 mg PO ACBREAKFAST [facility] Pravastatin Sodium (Pravachol) 20 mg PO BEDTIME [facility] Last Admin: 05/20/20 20:36 Dose: 20 mg Documented by: VI Senna/Docusate Sodium (Senna Plus) 1 tab PO BID PRN PRN Reason: Constipation Topiramate (Topamax) 100 mg PO DAILY [facility] Topiramate (Topamax) 50 mg PO DAILY [facility] Labs: Laboratory Tests 05/20/20 05/20/20 05/20/20 Range/Units 10:26 10:40 10:40 WBC 9.5 (4.5-11.0) K/uL RBC 4.22 (3.30-5.50) M/uL Hgb 12.9 (12.0-15.0) g/dL Hct 34.4 L (36.0-48.0) % MCV 82 (80-98) fL MCH 31 (27-31) pg MCHC 38 H (32-36) % Plt Count 281 (150-400) K/uL Neut % (Auto) 82 H (36-66) % Lymph % (Auto) 9 L (24-44) % [place] % (Auto) 9 H (2-6) % Eos % (Auto) 0 L (2-4) % Baso % (Auto) 0 (0-1) % Sodium 118 L* (140-148) mmol/L Potassium 1.9 L* (3.6-5.2) mmol/L Chloride 79 L (100-108) mmol/L Carbon Dioxide 29 (21-32) mmol/L Anion Gap 11.9 (5.0-14.0) mmol/L BUN 8 (7-18) mg/dL Creatinine 1.1 H (0.6-1.0) mg/dL Est Cr Clr Drug Dosing 33.46 mL/min Estimated GFR (MDRD) 47 L (>60) Glucose 104 (74-106) mg/dL Calcium 8.9 (8.5-10.1) mg/dL Magnesium (1.8-2.4) mg/dL Total Bilirubin 1.0 D (0.2-1.0) mg/dL AST 39 H D (15-37) U/L ALT 39 D (12-78) U/L Alkaline Phosphatase 71 (46-116) U/L Total Protein 6.4 (6.4-8.2) g/dL Albumin 3.4 (3.4-5.0) g/dL Globulin 3.0 (2.3-3.5) g/dL Albumin/Globulin Ratio 1.1 L (1.2-2.2) Urine Color Yellow (YELLOW) Urine Appearance Cloudy A (CLEAR) Urine pH 7.5 (5.0-8.0) Ur Specific [place] 1.020 (1.008-1.030) Urine Protein Negative (NEGATIVE) mg/dL Urine Glucose (UA) Negative (NEGATIVE) mg/dL Urine Ketones Negative (NEGATIVE) mg/dL Urine Occult Blood Trace-lysed H (NEGATIVE) Urine Nitrite Negative (NEGATIVE) Urine Bilirubin Negative (NEGATIVE) Urine Urobilinogen 0.2 (0.2-1.0) EU/dL Ur Leukocyte Esterase Small H (NEGATIVE) Urine RBC 5-10 H (0-5) Urine WBC 50-75 H (0-5) Ur Epithelial Cells Few Amorphous Sediment Not seen Urine Bacteria Many Urine Mucus Few 12/16/20 Range/Units 10:40 WBC (4.5-11.0) K/uL RBC (3.30-5.50) M/uL Hgb (12.0-15.0) g/dL Hct (36.0-48.0) % MCV (80-98) fL MCH (27-31) pg MCHC (32-36) % Plt Count (150-400) K/uL Neut % (Auto) (36-66) % Lymph % (Auto) (24-44) % [place] % (Auto) (2-6) % Eos % (Auto) (2-4) % Baso % (Auto) (0-1) % Sodium (140-148) mmol/L Potassium (3.6-5.2) mmol/L Chloride (100-108) mmol/L Carbon Dioxide (21-32) mmol/L Anion Gap (5.0-14.0) mmol/L BUN (7-18) mg/dL Creatinine (0.6-1.0) mg/dL Est Cr Clr Drug Dosing mL/min Estimated GFR (MDRD) (>60) Glucose (74-106) mg/dL Calcium (8.5-10.1) mg/dL Magnesium 1.5 L (1.8-2.4) mg/dL Total Bilirubin (0.2-1.0) mg/dL AST (15-37) U/L ALT (12-78) U/L Alkaline Phosphatase (46-116) U/L Total Protein (6.4-8.2) g/dL Albumin (3.4-5.0) g/dL Globulin (2.3-3.5) g/dL Albumin/Globulin Ratio (1.2-2.2) Urine Color (YELLOW) Urine Appearance (CLEAR) Urine pH (5.0-8.0) Ur Specific [place] (1.008-1.030) Urine Protein (NEGATIVE) mg/dL Urine Glucose (UA) (NEGATIVE) mg/dL Urine Ketones (NEGATIVE) mg/dL Urine Occult Blood (NEGATIVE) Urine Nitrite (NEGATIVE) Urine Bilirubin (NEGATIVE) Urine Urobilinogen (0.2-1.0) EU/dL Ur Leukocyte Esterase (NEGATIVE) Urine RBC (0-5) Urine WBC (0-5) Ur Epithelial Cells Amorphous Sediment Urine Bacteria Urine Mucus Meds: Medications Generic Name Dose Route Start Last Admin Trade Name Freq PRN Reason Stop Dose Admin Acetaminophen 650 mg 05/20/20 14:30 Tylenol PO Q4H PRN Pain (Mild 1-3)/fever Allopurinol 150 mg 05/21/20 09:00 Zyloprim PO DAILY RO[facility] Artificial Tears 0 ml 05/21/20 09:00 Genteal Mild To Moderate Ophth Soln EYEBOTH DAILY [facility] Carbidopa/Levodopa 1 tab 05/20/20 14:30 05/20/20 20:36 Sinemet 25-100 Mg PO 1 tab TID [facility] Administration Escitalopram Oxalate 10 mg 05/21/20 09:00 Lexapro PO DAILY [facility] Fluticasone Propionate 0 gm 05/21/20 09:00 Flonase SHANTEL DAILY [facility] Potassium Chloride/Sodium Chloride 1,000 mls @ 125 mls/hr 05/20/20 14:30 05/20/20 23:37 Normal Saline With 20 Meq Kcl IV 125 mls/hr ASDIRECTED [facility] Administration Ceftriaxone Sodium 1 gm/ 50 mls @ 100 mls/hr 05/21/20 11:00 Sodium Chloride IV Q24H [facility] Potassium Chloride 20 meq/ 112 mls @ 50 mls/hr 05/21/20 05:45 05/21/20 06:09 Lidocaine HCl 2 ml/ Sodium IV 05/21/20 07:59 Not Given Chloride ONETIME ONE Potassium Chloride 20 meq/ 100 mls @ 50 mls/hr 05/21/20 05:45 05/21/20 06:24 Premix IV 05/21/20 07:44 50 mls/hr ONETIME ONE Administration Lactobacillus Rhamnosus 1 cap 05/20/20 21:00 05/20/20 20:35 Culturelle PO 1 cap BID [facility] Administration Levothyroxine Sodium 25 mcg/ 75 mcg 05/21/20 07:30 Levothyroxine Sodium 50 mcg PO ACBREAKFAST [facility] Lorazepam 0.5 mg 05/20/20 14:30 Ativan IVPUSH Q4H PRN Nausea/Vomiting Magnesium Hydroxide 30 ml 05/20/20 14:30 Milk Of Magnesia PO Q12H PRN Constipation Melatonin 6 mg 05/20/20 21:00 05/20/20 20:35 Melatonin PO 6 mg BEDTIME [facility] Administration Montelukast Sodium 10 mg 05/20/20 21:00 05/20/20 20:58 Singulair PO 10 mg BEDTIME [facility] Administration Non-Formulary Medication 9 mg 05/21/20 09:00 Budesonide [Budesonide Ec] PO DAILY [facility] Ondansetron HCl 4 mg 05/20/20 14:30 Zofran IV Q6H PRN Nausea/Vomiting Ondansetron HCl 4 mg 05/20/20 14:30 Zofran Odt PO Q6H PRN Nausea able to take PO Pantoprazole Sodium 40 mg 05/21/20 07:30 Protonix PO ACBREAKFAST [facility] Pravastatin Sodium 20 mg 05/20/20 21:00 05/20/20 20:36 Pravachol PO 20 mg BEDTIME [facility] Administration Senna/Docusate Sodium 1 tab 05/20/20 14:30 Senna Plus PO BID PRN Constipation Topiramate 100 mg 05/21/20 09:00 Topamax PO DAILY [facility] Topiramate 50 mg 05/21/20 09:00 Topamax PO DAILY [facility] Discontinued Medications Generic Name Dose Route Start Last Admin Trade Name Freq PRN Reason Stop Dose Admin Sodium Chloride 1,000 mls @ 250 mls/hr 05/20/20 10:45 05/20/20 10:57 Normal Saline IV 250 mls/hr ASDIRECTED RO[facility] Administration Ceftriaxone Sodium 1 gm/ 50 mls @ 100 mls/hr 05/20/20 11:00 05/20/20 10:57 Sodium Chloride IV 05/20/20 11:29 100 mls/hr ONETIME ONE Administration Potassium Chloride 20 meq/ 100 mls @ 50 mls/hr 05/20/20 11:26 05/20/20 11:31 Premix IV 05/20/20 13:25 50 mls/hr ONETIME ONE Administration Magnesium Sulfate 2 gm in 50 mls @ 25 mls/hr 05/20/20 16:00 05/21/20 03:50 Magnesium Sulfate In Water Premix IV 05/21/20 05:59 25 mls/hr Q6H [facility] Administration Potassium Chloride Confirm 05/21/20 05:54 05/21/20 06:07 Kcl 20 Meq In Water 100 Ml Administered 05/21/20 05:55 Not Given Dose 100 mls @ as directed .ROUTE .STK-MED ONE Lidocaine HCl Confirm 05/21/20 05:54 05/21/20 06:07 Xylocaine-Mpf 1% Administered 05/21/20 05:55 Not Given Dose 5 ml .ROUTE .STK-MED ONE Lidocaine HCl 2 ml 05/21/20 05:45 05/21/20 06:45 Xylocaine-Mpf 1% INJECT 05/21/20 05:46 2 ml ONETIME ONE Administration Non-Formulary Medication 3 mg 05/21/20 09:00 Budesonide [Budesonide Ec] PO DAILY [facility] Potassium Chloride 40 meq 05/20/20 13:35 05/20/20 14:08 Klor-Con M20 PO 05/20/20 13:36 40 meq ONETIME ONE Administration Potassium Chloride 40 meq 05/20/20 21:00 05/20/20 21:38 Klor-Con M20 PO 05/20/20 21:01 40 meq ONETIME ONE Administration Potassium Chloride 40 meq 05/21/20 05:45 05/21/20 05:59 Klor-Con M20 PO 05/21/20 05:46 40 meq ONETIME ONE Administration - Re-Assessments/Exams Free Text/Narrative Re-Assessment/Exam: 05/20/20 10:33 CBC, CMP and quick cath UA specimen was obtained. Hydration was started at 250 cc an hour. 05/20/20 10:55 White count and hemoglobin are normal, but UA confirms many bacteria. 1 g of Rocephin IV was started, chemistry panel pending. Portable chest x-ray was also ordered. Chest x-ray was negative 05/20/20 11:28 Labs revealed significant hyponatremia and hypokalemia with levels of 118 and 1.9 respectively. 20 mEq of potassium was initiated and Dr. Adam Mccormick of the hospitalist service was consulted for admission. Departure - Departure Time of Disposition: 14:14 Disposition: Admitted As Inpatient 68 Clinical Impression: Hyponatremia, Hypokalemia, UTI, Urinary tract infectious disease - Discharge Information Sepsis Event Note (ED) - Evaluation Sepsis Screening Result: No Definite Risk
[2020-05-20] MEDS ORDERED: Sodium Chloride 0.9% 1,000 ML IV SCH (10:45)
[2020-05-20] MEDS ORDERED: cefTRIAXone 1 GM in Sodium Chloride 0.9% 50 ML IV ONE ×2 (10:49→11:00)
--- NOTE | 2020-05-20 11:25 | CR ---
CHEST: Portable 05/20/2020 at 10:57 AM CLINICAL HISTORY:Dyspnea COMPARISON:2015 FINDINGS: Heart size and pulmonary vascularity are normal. There is a monitoring device over the anterior medial left chest. There are atherosclerotic changes in the aorta. Lung lackey are hyperaerated but clear. There is a tortuous lower aorta and a prominent the nisha hernia in retrocardiac region. Impression: Hyperaeration No acute cardiopulmonary process There are atherosclerotic changes in the aorta. Hiatal hernia
[2020-05-20] MEDS ORDERED: Potassium Chloride 20 MEQ in Premix Bag 1 BAG IV ONE (11:26)
[2020-05-20] MEDS ORDERED: Potassium Chloride 20 MEQ Tab.ER PO ONE ×2 (13:35→21:00)
--- NOTE | 2020-05-20 13:50 | PCM.HP.2 ---
H&P History of Present Illness - General Date of Service: 05/20/20 Admit Problem/Dx: Admission Diagnosis/Problem Admission Diagnosis/Problem Hyponatremia Source of Information: Patient, Family, Provider History Limitations: Reports: Altered Mental Status - History of Present Illness Initial Comments - Free Text/Narative: CC: weak HPI: Alysa presents to the emergency room today with weakness. She is accompanied by her son who provides most of the history. She is a little bit confused at this time but is able to add some to the history. Per report she had COVID-19 infection about 1 month ago. This did take her down some but she was starting to recover. Over the past week she has had a steady decline with increasing weakness and confusion. Her appetite has not been good. Fluid intake has been less than previous. She is not aware of any fevers. She does report some mild crampy lower abdominal pain over the last few days. This seems to come and go without an obvious trigger. Tylenol does help. She has about 2 loose bowel movements per day but this is normal. She was recently prescribed a new medication to help with her Parkinson's disease but has not started this yet. Multiple families had Covid 1 month ago but no recent illness exposures. She does report some increased urinary frequency over the past few days. This morning she was so weak she could not get up from her chair. She was seen in the clinic a couple of days ago for suspected urinary tract infection but antibiotics have not been started. Her potassium was 2.5 at that time. Work-up in the emergency room today was suggestive of a urinary tract infection based on urinalysis findings. She also had significant hyponatremia with a sodium of 118 and a potassium of 1.9. She has received some IV fluids as well as some potassium and a dose of ceftriaxone. She will be admitted to the hospital for further management. - Related Data Allergies/Adverse Reactions: Allergies Allergy/AdvReac Type Severity Reaction Status Date / Time albuterol Allergy Cannot Verified 05/20/20 10:30 Remember codeine Allergy Swelling Verified 05/20/20 10:30 fish oil Allergy Rash Verified 05/20/20 10:30 Iodinated Contrast Media Allergy Hives Verified 05/20/20 10:30 iodine Allergy Swelling Verified 05/20/20 10:30 oxycodone Allergy Hallucinati Verified 05/20/20 10:30 ons povidone-iodine Allergy Swelling Verified 05/20/20 10:30 [From Betadine] soap [From Betadine] Allergy Swelling Verified 05/20/20 10:30 valacyclovir HCl Allergy Rash Verified 05/20/20 10:30 [From Valtrex] fentanyl AdvReac Nausea Verified 05/20/20 10:52 morphine AdvReac Hallucinati Verified 05/20/20 10:30 ons shrimp flavor Allergy Rash Uncoded 05/20/20 10:30 vitamins- minerals Allergy Cannot Uncoded 05/20/20 10:30 Remember Home Medications: Home Meds Acetaminophen [Pain Reliever] 500 mg PO BID PRN 10/15/13 [History] Escitalopram [Lexapro] 10 mg PO DAILY 10/15/13 [History] Pravastatin Sodium 20 mg PO BEDTIME 10/15/13 [History] Topiramate 1.5 tab PO DAILY 10/15/13 [History] Triamterene/Hydrochlorothiazid [Dyazide 37.5-25] 1 cap PO DAILY 10/15/13 [History] Montelukast [Singulair] 10 mg PO BEDTIME 10/28/14 [History] Triamcinolone Acetonide [Kenalog 0.1% Crm] 1 applic TOP BID PRN 12/04/14 [History] Fluticasone Propionate [Flonase Allergy Relief] 1 spray SHANTEL DAILY 07/30/19 [History] Cyclobenzaprine [Flexeril] 10 mg PO TID PRN 01/07/20 [History] Ibuprofen [Advil] 200 mg PO Q6H PRN 01/07/20 [History] Levothyroxine Sodium [Synthroid] 75 mcg PO DAILY 01/07/20 [History] Pantoprazole Sodium [Protonix] 40 mg PO DAILY 01/07/20 [History] Budesonide [Budesonide EC] 3 mg PO ASDIRECTED 05/20/20 [History] Carbidopa/Levodopa [Sinemet 25-100 mg Tablet] 1 tab PO TID 05/20/20 [History] Carboxymethylcellulose Sodium [Artificial Tears] 1 drop EYEBOTH DAILY 05/20/20 [History] Potassium Chloride [Klor-Con M20] 20 meq PO BID 05/20/20 [History] allopurinoL [Zyloprim] 150 mg PO DAILY 12/16/20 [History] Past Medical History HEENT History: Reports: Hard of Hearing, Other (See Below) Other HEENT History: SORE LEFT NARE Cardiovascular History: Reports: Arrhythmia, High Cholesterol, Hypertension, Other (See Below) Other Cardiovascular History: LOW HEART RATE Respiratory History: Reports: Asthma, COPD, SOB Gastrointestinal History: Reports: Cholelithiasis, Diverticulosis, Irritable Bowel Syndrome, Other (See Below) Other Gastrointestinal History: dumping syndrome Genitourinary History: Reports: Pyelonephritis, UTI, Recurrent [employer]UMBING [employer]ER History: Reports: Musculoskeletal History: Reports: Fracture, Other (See Below) Other Musculoskeletal History: H/O BROKEN TAILBONE AND LEFT LOWER LEG FX Neurological History: Reports: Other (See Below) Other Neuro History: tremors Psychiatric History: Reports: Anxiety, Depression Endocrine/Metabolic History: Reports: Other (See Below) Other Endocrine/Metabolic History: thyroid disease Oncologic (Cancer) History: Reports: Uterine Dermatologic History: Reports: Other (See Below) Other Dermatologic History: rash - Infectious Disease History Infectious Disease History: Reports: Chicken Pox, Measles, Mumps, Shingles - Past Surgical History HEENT Surgical History: Reports: Cataract Surgery Other Cardiovascular Surgeries/Procedures: holter monitor placed in [place] today 10/11/2019 GI Surgical History: Reports: Cholecystectomy, Colonoscopy, EGD, Hernia Repair/Other, Other (See Below) Other GI Surgeries/Procedures: bile duct removed Female Surgical History: Reports: Hysterectomy Social & Family History - Family History Family Medical History: No Pertinent Family History - Tobacco Use Tobacco Use Status *Q: Never Tobacco User - Caffeine Use Caffeine Use: Reports: Tea Other Caffeine Use: one cappucino in the morning - Alcohol Use Alcohol Use History: No - Recreational Drug Use Recreational Drug Use: No H&P Review of Systems - Review of Systems: Review Of Systems: See Below Free Text/Narrative: A complete 12 point review of systems was obtained. Pertinent positives and negatives are noted in the history of present illness. All other systems were reviewed and were negative except as noted. Exam - Exam Exam: See Below - Vital Signs Vital Signs: Last Vital Signs Temp 37.1 C 05/20/20 10:11 Pulse 62 05/20/20 11:00 Resp 14 05/20/20 11:00 BP 111/60 05/20/20 11:00 Pulse Ox 97 05/20/20 11:00 Weight: 73.936 kg - Exam Quality Assessment: No: Supplemental Oxygen General: Alert, Cooperative. No: Oriented, Mild Distress HEENT: Conjunctiva Clear. No: Mucosa Moist & [place] (dry), Scleral Icterus Neck: Supple, Trachea Midline. No: Lymphadenopathy Lungs: Clear to Auscultation, Normal Respiratory Effort Cardiovascular: Regular Rate, Regular Rhythm. No: Systolic Murmur GI/Abdominal Exam: Normal Bowel Sounds, Soft, No Distention, Tender (mild epigastric ) Back Exam: Normal Inspection, Full Range of Motion Extremities: No Pedal Edema. No: Increased Warmth Skin: Warm, Dry Neuro Extensive - Mental Status: Alert, Nl Response to Commands Neuro Extensive - Motor, Sensory, Reflexes: Tremor (jaw and hands). No: Dysarthria, Abnormal Motor Psychiatric: Alert, Normal Affect - Patient Data Lab Results Last 24 hrs: Laboratory Results - last 24 hr 05/20/20 05/20/20 05/20/20 Range/Units 10:26 10:40 10:40 WBC 9.5 (4.5-11.0) K/uL RBC 4.22 (3.30-5.50) M/uL Hgb 12.9 (12.0-15.0) g/dL Hct 34.4 L (36.0-48.0) % MCV 82 (80-98) fL MCH 31 (27-31) pg MCHC 38 H (32-36) % Plt Count 281 (150-400) K/uL Neut % (Auto) 82 H (36-66) % Lymph % (Auto) 9 L (24-44) % [place] % (Auto) 9 H (2-6) % Eos % (Auto) 0 L (2-4) % Baso % (Auto) 0 (0-1) % Sodium 118 L* (140-148) mmol/L Potassium 1.9 L* (3.6-5.2) mmol/L Chloride 79 L (100-108) mmol/L Carbon Dioxide 29 (21-32) mmol/L Anion Gap 11.9 (5.0-14.0) mmol/L BUN 8 (7-18) mg/dL Creatinine 1.1 H (0.6-1.0) mg/dL Est Cr Clr Drug Dosing 33.46 mL/min Estimated GFR (MDRD) 47 L (>60) Glucose 104 (74-106) mg/dL Calcium 8.9 (8.5-10.1) mg/dL Total Bilirubin 1.0 D (0.2-1.0) mg/dL AST 39 H D (15-37) U/L ALT 39 D (12-78) U/L Alkaline Phosphatase 71 (46-116) U/L Total Protein 6.4 (6.4-8.2) g/dL Albumin 3.4 (3.4-5.0) g/dL Globulin 3.0 (2.3-3.5) g/dL Albumin/Globulin Ratio 1.1 L (1.2-2.2) Urine Color Yellow (YELLOW) Urine Appearance Cloudy A (CLEAR) Urine pH 7.5 (5.0-8.0) Ur Specific [place] 1.020 (1.008-1.030) Urine Protein Negative (NEGATIVE) mg/dL Urine Glucose (UA) Negative (NEGATIVE) mg/dL Urine Ketones Negative (NEGATIVE) mg/dL Urine Occult Blood Trace-lysed H (NEGATIVE) Urine Nitrite Negative (NEGATIVE) Urine Bilirubin Negative (NEGATIVE) Urine Urobilinogen 0.2 (0.2-1.0) EU/dL Ur Leukocyte Esterase Small H (NEGATIVE) Urine RBC 5-10 H (0-5) Urine WBC 50-75 H (0-5) Ur Epithelial Cells Few Amorphous Sediment Not seen Urine Bacteria Many Urine Mucus Few Result Diagrams: 05/20/20 10:40 05/20/20 10:40 Imaging Impressions Last 24 hrs: CXR-images personally reviewed-lungs hyperinflated but otherwise clear. No mass, infiltrate or effusion. Heart size is normal. Sepsis Event Note - Evaluation Sepsis Screening Result: No Definite Risk - Focused Exam Vital Signs: Vital Signs Temp Pulse Resp BP Pulse Ox 05/20/20 11:00 62 14 111/60 97 05/20/20 10:11 37.1 C 64 16 131/67 100 05/20/20 09:56 37.1 C 64 16 131/67 100 *Q Meaningful Use (ADM) - VTE Risk Assess *Q Each Risk Factor Represents 1 Point: Obesity ( BMI > 25 kg/m2), Abnormal Pulmonary Function (COPD) Total Score 1 Point Risk Factors: 2 Each Risk Factor Represents 2 Points: None Total Score 2 Point Risk Factors: 0 Each Risk Factor Represents 3 Points: Age 75 Years or Greater Total Score 3 Point Risk Factors: 3 Each Risk Factor Represents 5 Points: None Total Score 5 Point Risk Factors: 0 Venous Thromboembolism Risk Factor Score *Q: 5 - Problem List (1) Hyponatremia SNOMED Code(s): 77338874 ICD Code: E87.1 - HYPO-OSMOLALITY AND HYPONATREMIA Status: Acute Current Visit: Yes (2) Hypokalemia SNOMED Code(s): 03568176 ICD Code: E87.6 - HYPOKALEMIA Status: Acute Current Visit: Yes (3) Acute cystitis without hematuria SNOMED Code(s): 75973148 ICD Code: N30.00 - ACUTE CYSTITIS WITHOUT HEMATURIA Status: Acute Current Visit: Yes (4) Parkinsons disease SNOMED Code(s): 76039411 ICD Code: G20 - PARKINSON'S DISEASE Status: Chronic Current Visit: Yes (5) COPD (chronic obstructive pulmonary disease) SNOMED Code(s): 01324755 ICD Code: J44.9 - CHRONIC OBSTRUCTIVE PULMONARY DISEASE, UNSPECIFIED Status: Chronic Current Visit: Yes Qualifiers: COPD type: emphysema Emphysema type: unspecified Qualified Code(s): J43.9 - Emphysema, unspecified Problem List Initiated/Reviewed/Updated: Yes Orders Last 24hrs: Active Orders 24 hr Category Date Time Status Patient Status Manage Transfer [TRANSFER] Routine ADT 05/20/20 13:36 Ordered Sodium Chloride 0.9% [Normal Saline] 1,000 ml Med 05/20/20 10:45 Active IV ASDIRECTED Resuscitation Status Routine Resus Stat 05/20/20 13:39 Ordered Medication Orders Sodium Chloride (Normal Saline) 1,000 mls @ 250 mls/hr IV ASDIRECTED ROSELIA Last Admin: 05/20/20 10:57 Dose: 250 mls/hr Documented by: BRTITNEY Assessment/Plan Comment:: ASSESSMENT AND PLAN - Hyponatremia-seems to be hypovolemic hyponatremia. I am suspicious that poor intake coupled with diuretic use has led to the decline in her sodium. I suspect the sodium is contributing to her weakness and confusion but more than likely this was a slow decline over the past week or 2. Blood pressure is currently acceptable and her kidney function is near baseline. -IV fluids -Discontinue triamterene/hydrochlorothiazide -Repeat labs tonight Profound hypokalemia-potassium level only 1.9 this morning. I suspect this is related to her poor intake and diuretic as well. She has received 20 mEq in the emergency room. -40 mEq by mouth now -Recheck tonight and in the morning Acute cystitis without hematuria-symptoms including increased urinary frequency. No evidence for sepsis. -Empiric ceftriaxone -Follow-up culture -Physical therapy for strengthening COPD-not oxygen dependent at baseline. No evidence for exacerbation. -Continue home medications Parkinson's disease-recently prescribed Sinemet but she has not started taking this yet. Maintenance issues - - DVT prophylaxis -mechanical - GI prophylaxis -PPI - Nutrition -regular - Krishnamurthy catheter -not indicated CODE STATUS -DNR/DNI Admission justification -this patient will be admitted for inpatient services and is medically appropriate meeting medical necessity for inpatient admission as outlined in my documentation. I reasonably expect the patient will require inpatient services that span a period time over 2 midnights. I reasonably expect this patient to be discharged or transferred within 96 hours [facility]. Disposition -I would anticipate discharge home after the hospital stay Primary care physician -Dr. Ivan Mccormick M.D. - Mortality Measure Prognosis:: Good
[2020-05-20] MEDS ORDERED: Magnesium Hydroxide 400 MG/5 ML Susp 30 ML Cup PO PRN (14:30)
[2020-05-20] MEDS ORDERED: Acetaminophen 325 MG Tab PO PRN (14:30)
[2020-05-20] MEDS ORDERED: LORazepam 2 MG/ML SDV IVPUSH PRN (14:30)
[2020-05-20] MEDS ORDERED: Ondansetron 4 MG/2 ML SDV IV PRN (14:30)
[2020-05-20] MEDS ORDERED: Ondansetron 4 MG Tab.DIS PO PRN (14:30)
[2020-05-20] MEDS: NS + KCl 20mEq/L 1,000 ML IV SCH ×2 (14:55→23:37)
[2020-05-20] MEDS: Carbidopa/Levodopa 25-100 MG Tab PO SCH ×2 (15:18→20:36)
[2020-05-20] MEDS: Magnesium Sulfate/Water 2 GM/50 ML BAG IV SCH ×2 (15:31→21:01)
[2020-05-20] MEDS: Melatonin 3 MG Tab PO SCH (20:35)
[2020-05-20] MEDS: Lactobacillus Rhamnosus GG (Probiotic) Cap PO SCH (20:35)
[2020-05-20] MEDS: Pravastatin 20 MG Tab PO SCH (20:36)
[2020-05-20] MEDS: Montelukast 10 MG Tab PO SCH (20:58)
[2020-05-20] MEDS ORDERED: Topiramate 25 MG Tab PO SCH (21:00)
[2020-05-21] MEDS: Magnesium Sulfate/Water 2 GM/50 ML BAG IV SCH (03:50)
[2020-05-21] MEDS ORDERED: Potassium Chloride 20 MEQ in Premix Bag 1 BAG IV ONE (05:45)
[2020-05-21] MEDS ORDERED: Potassium Chloride 20 MEQ Tab.ER PO ONE ×2 (05:45→14:30)
[2020-05-21] MEDS ORDERED: Potassium Chloride 100 ML ONE (05:54)
[2020-05-21] MEDS: Potassium Chloride 20 MEQ, Lidocaine 1% 2 ML in Sodium Chloride 0.9% 100 ML IV ONE ×2 (06:00→06:09)
[2020-05-21] MEDS: Pantoprazole 40 MG Tab.CR PO SCH (08:24)
[2020-05-21] MEDS: Levothyroxine 25 MCG, Levothyroxine 50 MCG PO SCH ×2 (08:24)
[2020-05-21] MEDS: Lactobacillus Rhamnosus GG (Probiotic) Cap PO SCH ×2 (08:27→20:00)
[2020-05-21] MEDS: Fluticasone Propionate Nasal Spray 16 GM Bottle NAS SCH (08:28)
[2020-05-21] MEDS: Hypromellose 0.3% Ophth Soln 15 ML Bottle EYEBOTH SCH (08:28)
[2020-05-21] MEDS: Escitalopram 10 MG Tab PO SCH (08:30)
[2020-05-21] MEDS: Carbidopa/Levodopa 25-100 MG Tab PO SCH ×3 (08:30→19:59)
[2020-05-21] MEDS: Topiramate 100 MG Tab PO SCH (08:31)
[2020-05-21] MEDS: Topiramate 25 MG Tab PO SCH (08:31)
[2020-05-21] MEDS: Allopurinol 100 MG Tab PO SCH (08:32)
[2020-05-21] MEDS ORDERED: Non-Formulary Medication 1 Each (Fluticasone Propionate [Flonase Allergy Relief] 1 SPRAY) NAS SCH (09:00)
[2020-05-21] MEDS ORDERED: CARBOXYMETHYLCELLULOSE SODIUM EYEBOTH SCH (09:00)
[2020-05-21] MEDS ORDERED: Non-Formulary Medication 1 Each (Budesonide [Budesonide Ec] 3 MG) PO SCH (09:00)
[2020-05-21] MEDS ORDERED: LEVOTHYROXINE SODIUM 75 MCG PO SCH (09:00)
[2020-05-21] MEDS ORDERED: ALLOPURINOL 150 MG PO SCH (09:00)
[2020-05-21] MEDS: NS + KCl 20mEq/L 1,000 ML IV SCH ×2 (09:06→17:29)
--- NOTE | 2020-05-21 10:49 | PCM.PN ---
- General Info Date of Service: 05/21/20 Subjective Update: No acute events overnight. Patient feels better today but is still weak. No fevers overnight. Lower abdominal pain is a little better but not resolved. No nausea or vomiting. Sodium level has improved significantly. Potassium level slowly improving. Confusion is improving as well. Appetite improving. Blood pressure well controlled. Functional Status: Reports: Pain Controlled, Tolerating Diet - Review of Systems General: Reports: Weakness. Denies: Fever Gastrointestinal: Reports: Abdominal Pain - Patient Data Vitals - Most Recent: Last Vital Signs Temp 35.8 C L 05/21/20 07:10 Pulse 52 L 05/21/20 07:10 Resp 12 05/21/20 07:10 BP 113/49 L 05/21/20 07:10 Pulse Ox 97 05/21/20 07:10 Weight - Most Recent: 77 kg I&O - Last 24 Hours: Intake & Output 05/20/20 05/21/20 05/21/20 22:59 06:59 14:59 Intake Total 1016 1779 120 Output Total 300 Balance 1016 1779 -180 Lab Results Last 24 Hours: Laboratory Results - last 24 hr 05/20/20 05/20/20 05/20/20 Range/Units 10:40 10:40 10:40 WBC 9.5 (4.5-11.0) K/uL RBC 4.22 (3.30-5.50) M/uL Hgb 12.9 (12.0-15.0) g/dL Hct 34.4 L (36.0-48.0) % MCV 82 (80-98) fL MCH 31 (27-31) pg MCHC 38 H (32-36) % Plt Count 281 (150-400) K/uL Neut % (Auto) 82 H (36-66) % Lymph % (Auto) 9 L (24-44) % [place] % (Auto) 9 H (2-6) % Eos % (Auto) 0 L (2-4) % Baso % (Auto) 0 (0-1) % Sodium 118 L* (140-148) mmol/L Potassium 1.9 L* (3.6-5.2) mmol/L Chloride 79 L (100-108) mmol/L Carbon Dioxide 29 (21-32) mmol/L Anion Gap 11.9 (5.0-14.0) mmol/L BUN 8 (7-18) mg/dL Creatinine 1.1 H (0.6-1.0) mg/dL Est Cr Clr Drug Dosing 33.46 mL/min Estimated GFR (MDRD) 47 L (>60) Glucose 104 (74-106) mg/dL Calcium 8.9 (8.5-10.1) mg/dL Magnesium 1.5 L (1.8-2.4) mg/dL Total Bilirubin 1.0 D (0.2-1.0) mg/dL AST 39 H D (15-37) U/L ALT 39 D (12-78) U/L Alkaline Phosphatase 71 (46-116) U/L Total Protein 6.4 (6.4-8.2) g/dL Albumin 3.4 (3.4-5.0) g/dL Globulin 3.0 (2.3-3.5) g/dL Albumin/Globulin Ratio 1.1 L (1.2-2.2) 05/20/20 05/21/20 05/21/20 Range/Units 20:00 04:33 04:33 WBC 7.3 (4.5-11.0) K/uL RBC 3.61 (3.30-5.50) M/uL Hgb 10.9 L D (12.0-15.0) g/dL Hct 30.2 L (36.0-48.0) % MCV 84 (80-98) fL MCH 30 (27-31) pg MCHC 36 (32-36) % Plt Count 242 (150-400) K/uL Neut % (Auto) (36-66) % Lymph % (Auto) (24-44) % [place] % (Auto) (2-6) % Eos % (Auto) (2-4) % Baso % (Auto) (0-1) % Sodium 124 L 129 L (140-148) mmol/L Potassium 2.4 L* 2.5 L* (3.6-5.2) mmol/L Chloride 88 L 94 L (100-108) mmol/L Carbon Dioxide 26 27 (21-32) mmol/L Anion Gap 12.4 10.5 (5.0-14.0) mmol/L BUN 7 6 L (7-18) mg/dL Creatinine 1.0 0.9 (0.6-1.0) mg/dL Est Cr Clr Drug Dosing 38.36 42.62 mL/min Estimated GFR (MDRD) 53 L 60 (>60) Glucose 142 H 103 (74-106) mg/dL Calcium 8.3 L 7.8 L (8.5-10.1) mg/dL Magnesium (1.8-2.4) mg/dL Total Bilirubin (0.2-1.0) mg/dL AST (15-37) U/L ALT (12-78) U/L Alkaline Phosphatase (46-116) U/L Total Protein (6.4-8.2) g/dL Albumin (3.4-5.0) g/dL Globulin (2.3-3.5) g/dL Albumin/Globulin Ratio (1.2-2.2) Chele Results Last 24 Hours: Microbiology 05/20/20 14:34 Urine Culture - Preliminary Urine, Clean Catch Med Orders - Current: Current Medications Acetaminophen (Tylenol) 650 mg PO Q4H PRN PRN Reason: Pain (Mild 1-3)/fever Allopurinol (Zyloprim) 150 mg PO DAILY [facility] Last Admin: 05/21/20 08:32 Dose: 150 mg Documented by: Artificial Tears (Genteal Mild To Moderate Ophth Soln) 0 ml EYEBOTH DAILY [facility] Last Admin: 05/21/20 08:28 Dose: 2 drop Documented by: Carbidopa/Levodopa (Sinemet 25-100 Mg) 1 tab PO TID [facility] Last Admin: 05/21/20 08:30 Dose: 1 tab Documented by: Escitalopram Oxalate (Lexapro) 10 mg PO DAILY [facility] Last Admin: 05/21/20 08:30 Dose: 10 mg Documented by: Fluticasone Propionate (Flonase) 0 gm SHANTEL DAILY [facility] Last Admin: 05/21/20 08:28 Dose: 2 spray Documented by: Ceftriaxone Sodium 1 gm/ (Sodium Chloride) 50 mls @ 100 mls/hr IV Q24H [facility] Lactobacillus Rhamnosus (Culturelle) 1 cap PO BID [facility] Last Admin: 05/21/20 08:27 Dose: 1 cap Documented by: Levothyroxine Sodium 25 mcg/ (Levothyroxine Sodium 50 mcg) 75 mcg PO ACBREAKFAST [facility] Last Admin: 05/21/20 08:24 Dose: 75 mcg Documented by: Lorazepam (Ativan) 0.5 mg IVPUSH Q4H PRN PRN Reason: Nausea/Vomiting Magnesium Hydroxide (Milk Of Magnesia) 30 ml PO Q12H PRN PRN Reason: Constipation Melatonin (Melatonin) 6 mg PO BEDTIME [facility] Last Admin: 05/20/20 20:35 Dose: 6 mg Documented by: Montelukast Sodium (Singulair) 10 mg PO BEDTIME [facility] Last Admin: 05/20/20 20:58 Dose: 10 mg Documented by: Non-Formulary Medication (Budesonide [Budesonide Ec]) 9 mg PO DAILY [facility] Ondansetron HCl (Zofran) 4 mg IV Q6H PRN PRN Reason: Nausea/Vomiting Ondansetron HCl (Zofran Odt) 4 mg PO Q6H PRN PRN Reason: Nausea able to take PO Pantoprazole Sodium (Protonix) 40 mg PO ACBREAKFAST [facility] Last Admin: 05/21/20 08:24 Dose: 40 mg Documented by: Pravastatin Sodium (Pravachol) 20 mg PO BEDTIME [facility] Last Admin: 05/20/20 20:36 Dose: 20 mg Documented by: Senna/Docusate Sodium (Senna Plus) 1 tab PO BID PRN PRN Reason: Constipation Topiramate (Topamax) 100 mg PO DAILY [facility] Last Admin: 05/21/20 08:31 Dose: 100 mg Documented by: Topiramate (Topamax) 50 mg PO DAILY [facility] Last Admin: 05/21/20 08:31 Dose: 50 mg Documented by: Discontinued Medications Sodium Chloride (Normal Saline) 1,000 mls @ 250 mls/hr IV ASDIRECTED [facility] Last Admin: 05/20/20 10:57 Dose: 250 mls/hr Documented by: Ceftriaxone Sodium 1 gm/ (Sodium Chloride) 50 mls @ 100 mls/hr IV ONETIME ONE Stop: 05/20/20 11:29 Last Admin: 05/20/20 10:57 Dose: 100 mls/hr Documented by: Potassium Chloride 20 meq/ (Premix) 100 mls @ 50 mls/hr IV ONETIME ONE Stop: 05/20/20 13:25 Last Admin: 05/20/20 11:31 Dose: 50 mls/hr Documented by: Potassium Chloride/Sodium Chloride (Normal Saline With 20 Meq Kcl) 1,000 mls @ 125 mls/hr IV ASDIRECTED [facility] Last Admin: 05/21/20 09:06 Dose: 125 mls/hr Documented by: Magnesium Sulfate (Magnesium Sulfate In Water Premix) 2 gm in 50 mls @ 25 mls/hr IV Q6H [facility] Stop: 05/21/20 05:59 Last Admin: 05/21/20 03:50 Dose: 25 mls/hr Documented by: Potassium Chloride 20 meq/Lidocaine HCl 2 ml/ Sodium Chloride 112 mls @ 50 mls/hr IV ONETIME ONE Stop: 05/21/20 07:59 Last Admin: 05/21/20 06:09 Dose: Not Given Documented by: Potassium Chloride (Kcl 20 Meq In Water 100 Ml) Confirm Administered Dose 100 mls @ as directed .ROUTE .STK-MED ONE Stop: 05/21/20 05:55 Last Admin: 05/21/20 06:07 Dose: Not Given Documented by: Potassium Chloride 20 meq/ (Premix) 100 mls @ 50 mls/hr IV ONETIME ONE Stop: 05/21/20 07:44 Last Admin: 05/21/20 06:24 Dose: 50 mls/hr Documented by: Lidocaine HCl (Xylocaine-Mpf 1%) Confirm Administered Dose 5 ml .ROUTE .STK-MED ONE Stop: 05/21/20 05:55 Last Admin: 05/21/20 06:07 Dose: Not Given Documented by: Lidocaine HCl (Xylocaine-Mpf 1%) 2 ml INJECT ONETIME ONE Stop: 05/21/20 05:46 Last Admin: 05/21/20 06:45 Dose: 2 ml Documented by: Non-Formulary Medication (Budesonide [Budesonide Ec]) 3 mg PO DAILY [facility] Potassium Chloride (Klor-Con M20) 40 meq PO ONETIME ONE Stop: 05/20/20 13:36 Last Admin: 05/20/20 14:08 Dose: 40 meq Documented by: Potassium Chloride (Klor-Con M20) 40 meq PO ONETIME ONE Stop: 05/20/20 21:01 Last Admin: 05/20/20 21:38 Dose: 40 meq Documented by: Potassium Chloride (Klor-Con M20) 40 meq PO ONETIME ONE Stop: 05/21/20 05:46 Last Admin: 05/21/20 05:59 Dose: 40 meq Documented by: - Exam Quality Assessment: No: Supplemental Oxygen General: Alert, Cooperative, No Acute Distress Lungs: Clear to Auscultation, Normal Respiratory Effort Cardiovascular: Regular Rate, Regular Rhythm GI/Abdominal Exam: Soft, No Distention Extremities: No Pedal Edema. No: Increased Warmth Skin: Warm, Dry Psy/Mental Status: Alert, Normal Affect Sepsis Event Note - Evaluation Sepsis Screening Result: No Definite Risk - Focused Exam Vital Signs: Vital Signs Temp Pulse Resp BP Pulse Ox 05/21/20 07:10 35.8 C L 52 L 12 113/49 L 97 05/21/20 03:48 35.6 C L 50 L 16 108/47 L 96 05/20/20 22:50 35.3 C L 49 L 16 100/47 L 97 - Problem List & Annotations (1) Hyponatremia SNOMED Code(s): 66769711 Code(s): E87.1 - HYPO-OSMOLALITY AND HYPONATREMIA Status: Acute Current Visit: Yes (2) Hypokalemia SNOMED Code(s): 06119599 Code(s): E87.6 - HYPOKALEMIA Status: Acute Current Visit: Yes (3) Acute cystitis without hematuria SNOMED Code(s): 16299469 Code(s): N30.00 - ACUTE CYSTITIS WITHOUT HEMATURIA Status: Acute Current Visit: Yes (4) Parkinsons disease SNOMED Code(s): 71286782 Code(s): G20 - PARKINSON'S DISEASE Status: Chronic Current Visit: Yes (5) COPD (chronic obstructive pulmonary disease) SNOMED Code(s): 15199541 Code(s): J44.9 - CHRONIC OBSTRUCTIVE PULMONARY DISEASE, UNSPECIFIED Status: Chronic Current Visit: Yes Qualifiers: COPD type: emphysema Emphysema type: unspecified Qualified Code(s): J43.9 - Emphysema, unspecified - Problem List Review Problem List Initiated/Reviewed/Updated: Yes - My Orders Last 24 Hours: My Active Orders 05/20/20 13:39 Resuscitation Status Routine 05/20/20 14:30 Acetaminophen [TylenoL] 650 mg PO Q4H PRN Carbidopa/Levodopa [Sinemet 25-100 mg] 1 tab PO TID Docusate Sodium/Sennosides [Senna Plus] 1 tab PO BID PRN LORazepam [Ativan] 0.5 mg IVPUSH Q4H PRN Magnesium Hydroxide [Milk of Magnesia] 30 ml PO Q12H PRN Ondansetron [Zofran ODT] 4 mg PO Q6H PRN Ondansetron [Zofran] 4 mg IV Q6H PRN 05/20/20 14:30 Patient Status [ADT] Routine Antiembolic Devices [RC] .Routine Cardiac Monitoring [RC] CONTINUOUS Intake and Output [RC] QSHIFT Notify Provider Vital Signs [RC] ASDIRECTED Oxygen Therapy [RC] PRN Up With Assistance [RC] ASDIRECTED VTE/DVT Education [RC] Per Unit Routine Vital Signs [RC] Q4H Sequential Compression Device [OM.PC] Routine 05/20/20 14:34 CULTURE URINE [RM] Routine 05/20/20 Dinner Regular Diet [DIET] 05/20/20 21:00 Lactobacillus Rhamnosus GG [Culturelle] 1 cap PO BID Melatonin 6 mg PO BEDTIME Montelukast [Singulair] 10 mg PO BEDTIME Pravastatin [Pravachol] 20 mg PO BEDTIME 05/21/20 07:00 PT Evaluation and Treatment [CONS] Routine 05/21/20 07:30 Levothyroxine [Synthroid] 75 mcg PO ACBREAKFAST Pantoprazole [ProTONIX] 40 mg PO ACBREAKFAST 05/21/20 09:00 Budesonide [Budesonide EC] 9 mg PO DAILY Escitalopram [Lexapro] 10 mg PO DAILY Fluticasone Propionate [Flonase] 0 gm SHANTEL DAILY Hypromellose [GenTeal Mild to Moderate Ophth Soln] 0 ml EYEBOTH DAILY Topiramate [Topamax] 100 mg PO DAILY Topiramate [Topamax] 50 mg PO DAILY allopurinoL [Zyloprim] 150 mg PO DAILY 05/21/20 11:00 NS + KCl 20mEq/L [Normal Saline with 20 mEq KCl] 1,000 ml IV ASDIRECTED cefTRIAXone [Rocephin] 1 gm Sodium Chloride 0.9% [Normal Saline] 50 ml IV Q24H 05/21/20 13:00 POTASSIUM,K [CHEM] Timed 05/22/20 05:00 BASIC METABOLIC PANEL,BMP [CHEM] Timed CBC W/O DIFF,HEMOGRAM [HEME] Timed (1) - Plan Plan:: ASSESSMENT AND PLAN - Hyponatremia-seems to be hypovolemic hyponatremia. Sodium level improving with hydration. -Continue gentle IV fluids -Discontinue triamterene/hydrochlorothiazide -Repeat labs in the morning Profound hypokalemia-potassium level improving with supplementation. She has received 60 mEq this morning -Recheck potassium this afternoon and supplement as indicated -Recheck in the morning Acute cystitis without hematuria-symptoms including increased urinary frequency. Urine culture growing a gram-negative meka with identification pending. -Empiric ceftriaxone -Follow-up culture -Physical therapy for strengthening COPD-not oxygen dependent at baseline. No evidence for exacerbation. -Continue home medications Parkinson's disease-recently prescribed Sinemet but she has not started taking this yet. Maintenance issues - - DVT prophylaxis -mechanical - GI prophylaxis -PPI - Nutrition -regular Disposition -I would anticipate discharge home after the hospital stay Primary care physician -Dr. Ivan Mccormick M.D.
[2020-05-21] MEDS: cefTRIAXone 1 GM in Sodium Chloride 0.9% 50 ML IV SCH (11:23)
[2020-05-21] MEDS: BUDESONIDE 9 MG PO SCH (16:16)
[2020-05-21] MEDS ORDERED: Ondansetron 4 MG Tab.DIS PO PRN (17:30)
[2020-05-21] MEDS ORDERED: Ondansetron 4 MG/2 ML SDV IV PRN (17:30)
[2020-05-21] MEDS: Melatonin 3 MG Tab PO SCH (19:59)
[2020-05-21] MEDS: Montelukast 10 MG Tab PO SCH (19:59)
[2020-05-21] MEDS: Pravastatin 20 MG Tab PO SCH (20:00)
[2020-05-22] MEDS: NS + KCl 20mEq/L 1,000 ML IV SCH (06:35)
[2020-05-22] MEDS: Levothyroxine 25 MCG, Levothyroxine 50 MCG PO SCH ×2 (08:06)
[2020-05-22] MEDS: Pantoprazole 40 MG Tab.CR PO SCH (08:07)
[2020-05-22] MEDS: Lactobacillus Rhamnosus GG (Probiotic) Cap PO SCH (08:07)
[2020-05-22] MEDS: BUDESONIDE 9 MG PO SCH (08:07)
[2020-05-22] MEDS: Carbidopa/Levodopa 25-100 MG Tab PO SCH (08:08)
[2020-05-22] MEDS: Escitalopram 10 MG Tab PO SCH (08:08)
[2020-05-22] MEDS: Allopurinol 100 MG Tab PO SCH (08:09)
[2020-05-22] MEDS: Topiramate 100 MG Tab PO SCH (08:10)
[2020-05-22] MEDS: Topiramate 25 MG Tab PO SCH (08:11)
[2020-05-22] MEDS: Hypromellose 0.3% Ophth Soln 15 ML Bottle EYEBOTH SCH (08:12)
[2020-05-22] MEDS: Fluticasone Propionate Nasal Spray 16 GM Bottle NAS SCH (08:12)
[2020-05-22 11:07] VITALS: BP 112/42; PULSE 121
[2020-05-22] MEDS: cefTRIAXone 1 GM in Sodium Chloride 0.9% 50 ML IV SCH (11:24)
--- NOTE | 2020-05-22 11:45 | PCM.DCSUM1 ---
Discharge Summary - Hospital Course Brief History: 85-year-old female with history of Parkinson's disease, hypertension and recent COVID-19 infection who presented with progressive weakness and increasing confusion. She was admitted for management of severe hyponatremia, severe hypokalemia and a urinary tract infection. Diagnosis: Stroke: No - Discharge Data Discharge Date: 05/22/20 Discharge Disposition: Home, W Home Health Agency 06 Condition: Good - Referral to Home Health Date of Face to Face Encounter: 05/22/20 Reason for Homebound Status: acute on chronic weakness Primary Care Physician: Andrzej Wright MD Skilled Need: Nursing, PT - Discharge Diagnosis/Problem(s) (1) Hyponatremia SNOMED Code(s): 49838572 ICD Code: E87.1 - HYPO-OSMOLALITY AND HYPONATREMIA Status: Acute (2) Hypokalemia SNOMED Code(s): 79871133 ICD Code: E87.6 - HYPOKALEMIA Status: Acute (3) Acute cystitis without hematuria SNOMED Code(s): 74697784 ICD Code: N30.00 - ACUTE CYSTITIS WITHOUT HEMATURIA Status: Acute (4) Parkinsons disease SNOMED Code(s): 31359734 ICD Code: G20 - PARKINSON'S DISEASE Status: Chronic (5) COPD (chronic obstructive pulmonary disease) SNOMED Code(s): 65760919 ICD Code: J44.9 - CHRONIC OBSTRUCTIVE PULMONARY DISEASE, UNSPECIFIED Status: Chronic Qualifiers: COPD type: emphysema Emphysema type: unspecified Qualified Code(s): J43.9 - Emphysema, unspecified - Patient Summary/Data Consults: Consultations 05/21/20 07:00 PT Evaluation and Treatment [CONS] Routine Please Evaluate and Treat. PT Reason for Consult: Strengthening This query below is only for informational purposes and is not editable. Hospital Course: Alysa presented to the emergency room with progressive weakness and confusion. Work-up in the emergency room revealed significant hyponatremia as well as profound hypokalemia and evidence for a urinary tract infection. She did have mild to moderate dehydration present but her kidney function was stable. There is no evidence to support sepsis. She was started on ceftriaxone after a urine culture was obtained. For the low sodium she was started on normal saline and her potassium was supplemented. Serial checks of the electrolytes showed improvement in the numbers. Her potassium did remain low but received additional supplementation. Her sodium level slowly but steadily improved with the normal saline hydration. Her mental status improved throughout the course of the hospital stay and her confusion resolved. Her sodium level has essentially normalized. Her potassium level is doing much better and has remained stable. She has not required supplementation in about 24 hours. She has made improvements in her strength with the help of physical therapy and nursing staff. She feels well enough to go home. Family believes she is in stable enough condition to be safe at home. They were interested in home care assisting them as well. I suspect that her her electrolyte abnormalities and dehydration were combination of recent Covid infection and her diuretic. We have discontinued her diuretic and her blood pressures have been excellent during the course of the hospital stay. If she does develop some lower extremity edema we could consider using a low-dose furosemide to help manage this rather than a a daily diuretic such as the triamterene/hydrochlorothiazide that she was on. Her urine culture grew out a pansensitive E. coli and she will be transitioned to cephalexin. She should have a repeat BMP next May 26. - Patient Instructions Diet: Regular Diet as Tolerated Activity: As Tolerated Showering/Bathing: May Shower Notify Provider of: Fever, Increased Pain Other/Special Instructions: 1. You were in the hospital for management of low sodium, low potassium and a urinary tract infection. I suspect the low sodium and potassium were related to dehydration complicated by your diuretic medication triamterene/hydrochlorothiazide. Your condition has been improving with IV fluids and stopping the diuretic as well as antibiotics for the urinary tract infection. I do recommend that you stop taking your tr iamterene/hydrochlorothiazide and monitor your blood pressure to see if we need to start a different medication. For the urinary tract infection, I recommend that you take cephalexin (Keflex) 500 mg twice daily for 4 doses. Your first dose outside the hospital will be due Monday morning. 2. Follow up with your primary care as scheduled. 3. I have placed a referral to home health care. They will provide nursing and physical therapy services to help ease your transition home. - Discharge Plan *PRESCRIPTION DRUG MONITORING PROGRAM REVIEWED*: Not Applicable *COPY OF PRESCRIPTION DRUG MONITORING REPORT IN PATIENT JOSE: Not Applicable Prescriptions/Med Rec: cephALEXin [Keflex] 500 mg PO BID #4 cap Home Medications: Home Meds Acetaminophen [Pain Reliever] 500 mg PO BID PRN 10/15/13 [History] Escitalopram [Lexapro] 10 mg PO DAILY 10/15/13 [History] Pravastatin Sodium 20 mg PO BEDTIME 10/15/13 [History] Topiramate 1.5 tab PO DAILY 10/15/13 [History] Montelukast [Singulair] 10 mg PO BEDTIME 10/28/14 [History] Triamcinolone Acetonide [Kenalog 0.1% Crm] 1 applic TOP BID PRN 12/04/14 [History] Fluticasone Propionate [Flonase Allergy Relief] 1 spray SHANTEL DAILY 07/30/19 [History] Cyclobenzaprine [Flexeril] 10 mg PO TID PRN 01/07/20 [History] Ibuprofen [Advil] 200 mg PO Q6H PRN 01/07/20 [History] Levothyroxine Sodium [Synthroid] 75 mcg PO DAILY 01/07/20 [History] Pantoprazole Sodium [Protonix] 40 mg PO DAILY 01/07/20 [History] Budesonide [Budesonide EC] 3 mg PO ASDIRECTED 05/20/20 [History] Carbidopa/Levodopa [Sinemet 25-100 mg Tablet] 1 tab PO TID 05/20/20 [History] Carboxymethylcellulose Sodium [Artificial Tears] 1 drop EYEBOTH DAILY 05/20/20 [History] Potassium Chloride [Klor-Con M20] 20 meq PO BID 05/20/20 [History] allopurinoL [Zyloprim] 150 mg PO DAILY 05/20/20 [History] cephALEXin [Keflex] 500 mg PO BID #4 cap 05/22/20 [Rx] Patient Handouts: Urinary Tract Infection, Adult, [id number], Cephalexin tablets or capsules Referrals: Andrzej Wright MD [Primary Care Provider] - 06/02/20 1:40 pm (Please arrive 15 minutes early to register for your appointment.) - Discharge Summary/Plan Comment DC Time >30 min.: Yes (35-home care) - Patient Data Vitals - Most Recent: Last Vital Signs Temp 36.3 C 05/22/20 11:05 Pulse 121 H 05/22/20 11:05 Resp 16 05/22/20 11:05 BP 112/42 L 05/22/20 11:05 Pulse Ox 95 05/22/20 11:05 Weight - Most Recent: 76.657 kg I&O - Last 24 hours: Intake & Output 05/21/20 05/22/20 05/22/20 22:59 06:59 14:59 Intake Total 2616 2654 120 Balance 2616 2654 120 Lab Results - Last 24 hrs: Laboratory Results - last 24 hr 05/20/20 05/21/20 05/22/20 Range/Units 10:40 13:00 05:38 WBC 6.3 (4.5-11.0) K/uL RBC 3.45 (3.30-5.50) M/uL Hgb 10.5 L (12.0-15.0) g/dL Hct 29.8 L (36.0-48.0) % MCV 86 (80-98) fL MCH 30 (27-31) pg MCHC 35 (32-36) % Plt Count 224 (150-400) K/uL Sodium (140-148) mmol/L Potassium 3.8 (3.6-5.2) mmol/L Chloride (100-108) mmol/L Carbon Dioxide (21-32) mmol/L Anion Gap (5.0-14.0) mmol/L BUN (7-18) mg/dL Creatinine (0.6-1.0) mg/dL Est Cr Clr Drug Dosing mL/min Estimated GFR (MDRD) (>60) Glucose (74-106) mg/dL Calcium (8.5-10.1) mg/dL Magnesium 1.5 L (1.8-2.4) mg/dL 05/22/20 Range/Units 05:38 WBC (4.5-11.0) K/uL RBC (3.30-5.50) M/uL Hgb (12.0-15.0) g/dL Hct (36.0-48.0) % MCV (80-98) fL MCH (27-31) pg MCHC (32-36) % Plt Count (150-400) K/uL Sodium 132 L (140-148) mmol/L Potassium 3.7 (3.6-5.2) mmol/L Chloride 101 (100-108) mmol/L Carbon Dioxide 23 (21-32) mmol/L Anion Gap 11.7 (5.0-14.0) mmol/L BUN 4 L (7-18) mg/dL Creatinine 0.8 (0.6-1.0) mg/dL Est Cr Clr Drug Dosing 47.95 mL/min Estimated GFR (MDRD) > 60 (>60) Glucose 95 (74-106) mg/dL Calcium 7.0 L (8.5-10.1) mg/dL Magnesium (1.8-2.4) mg/dL NIKO Results - Last 24 hrs: Microbiology 05/20/20 14:34 Urine Culture - Final Urine, Clean Catch Escherichia Coli Med Orders - Current: Current Medications Acetaminophen (Tylenol) 650 mg PO Q4H PRN PRN Reason: Pain (Mild 1-3)/fever Allopurinol (Zyloprim) 150 mg PO DAILY [facility] Last Admin: 05/22/20 08:09 Dose: 150 mg Documented by: Artificial Tears (Genteal Mild To Moderate Ophth Soln) 0 ml EYEBOTH DAILY [facility] Last Admin: 05/22/20 08:12 Dose: 1 drop Documented by: Carbidopa/Levodopa (Sinemet 25-100 Mg) 1 tab PO TID [facility] Last Admin: 05/22/20 08:08 Dose: 1 tab Documented by: Escitalopram Oxalate (Lexapro) 10 mg PO DAILY [facility] Last Admin: 05/22/20 08:08 Dose: 10 mg Documented by: Fluticasone Propionate (Flonase) 0 gm SHANTEL DAILY [facility] Last Admin: 05/22/20 08:12 Dose: 1 spray Documented by: Ceftriaxone Sodium 1 gm/ (Sodium Chloride) 50 mls @ 100 mls/hr IV Q24H [facility] Last Admin: 05/22/20 11:24 Dose: 100 mls/hr Documented by: Potassium Chloride/Sodium Chloride (Normal Saline With 20 Meq Kcl) 1,000 mls @ 75 mls/hr IV ASDIRECTED [facility] Last Admin: 05/22/20 06:35 Dose: 75 mls/hr Documented by: Lactobacillus Rhamnosus (Culturelle) 1 cap PO BID [facility] Last Admin: 05/22/20 08:07 Dose: 1 cap Documented by: Levothyroxine Sodium 25 mcg/ (Levothyroxine Sodium 50 mcg) 75 mcg PO ACBREAKFAST [facility] Last Admin: 05/22/20 08:06 Dose: 75 mcg Documented by: Lorazepam (Ativan) 0.5 mg IVPUSH Q4H PRN PRN Reason: Nausea/Vomiting Magnesium Hydroxide (Milk Of Magnesia) 30 ml PO Q12H PRN PRN Reason: Constipation Melatonin (Melatonin) 6 mg PO BEDTIME [facility] Last Admin: 05/21/20 19:59 Dose: 6 mg Documented by: Montelukast Sodium (Singulair) 10 mg PO BEDTIME [facility] Last Admin: 05/21/20 19:59 Dose: 10 mg Documented by: Budesonide ( Budesonide Ec) 9 Mg* *Pom 0 mg PO DAILY [facility] Last Admin: 05/22/20 08:07 Dose: 9 mg Documented by: Ondansetron HCl (Zofran) 4 mg IV Q4H PRN PRN Reason: Nausea/Vomiting Ondansetron HCl (Zofran Odt) 4 mg PO Q4H PRN PRN Reason: Nausea able to take PO Last Admin: 05/21/20 17:33 Dose: 4 mg Documented by: Pantoprazole Sodium (Protonix) 40 mg PO ACBREAKFAST [facility] Last Admin: 05/22/20 08:07 Dose: 40 mg Documented by: Pravastatin Sodium (Pravachol) 20 mg PO BEDTIME [facility] Last Admin: 05/21/20 20:00 Dose: 20 mg Documented by: Senna/Docusate Sodium (Senna Plus) 1 tab PO BID PRN PRN Reason: Constipation Topiramate (Topamax) 100 mg PO DAILY [facility] Last Admin: 05/22/20 08:10 Dose: 100 mg Documented by: Topiramate (Topamax) 50 mg PO DAILY [facility] Last Admin: 05/22/20 08:11 Dose: 50 mg Documented by: Discontinued Medications Sodium Chloride (Normal Saline) 1,000 mls @ 250 mls/hr IV ASDIRECTED [facility] Last Admin: 05/20/20 10:57 Dose: 250 mls/hr Documented by: Ceftriaxone Sodium 1 gm/ (Sodium Chloride) 50 mls @ 100 mls/hr IV ONETIME ONE Stop: 05/20/20 11:29 Last Admin: 05/20/20 10:57 Dose: 100 mls/hr Documented by: Potassium Chloride 20 meq/ (Premix) 100 mls @ 50 mls/hr IV ONETIME ONE Stop: 05/20/20 13:25 Last Admin: 05/20/20 11:31 Dose: 50 mls/hr Documented by: Potassium Chloride/Sodium Chloride (Normal Saline With 20 Meq Kcl) 1,000 mls @ 125 mls/hr IV ASDIRECTED [facility] Last Admin: 05/21/20 09:06 Dose: 125 mls/hr Documented by: Magnesium Sulfate (Magnesium Sulfate In Water Premix) 2 gm in 50 mls @ 25 mls/hr IV Q6H ROSELIA Stop: 05/21/20 05:59 Last Admin: 05/21/20 03:50 Dose: 25 mls/hr Documented by: Potassium Chloride 20 meq/Lidocaine HCl 2 ml/ Sodium Chloride 112 mls @ 50 mls/hr IV ONETIME ONE Stop: 05/21/20 07:59 Last Admin: 05/21/20 06:09 Dose: Not Given Documented by: Potassium Chloride (Kcl 20 Meq In Water 100 Ml) Confirm Administered Dose 100 mls @ as directed .ROUTE .STK-MED ONE Stop: 05/21/20 05:55 Last Admin: 05/21/20 06:07 Dose: Not Given Documented by: Potassium Chloride 20 meq/ (Premix) 100 mls @ 50 mls/hr IV ONETIME ONE Stop: 05/21/20 07:44 Last Admin: 05/21/20 06:24 Dose: 50 mls/hr Documented by: Lidocaine HCl (Xylocaine-Mpf 1%) Confirm Administered Dose 5 ml .ROUTE .STK-MED ONE Stop: 05/21/20 05:55 Last Admin: 05/21/20 06:07 Dose: Not Given Documented by: Lidocaine HCl (Xylocaine-Mpf 1%) 2 ml INJECT ONETIME ONE Stop: 05/21/20 05:46 Last Admin: 05/21/20 06:45 Dose: 2 ml Documented by: Non-Formulary Medication (Budesonide [Budesonide Ec]) 3 mg PO DAILY [facility] Ondansetron HCl (Zofran) 4 mg IV Q6H PRN PRN Reason: Nausea/Vomiting Ondansetron HCl (Zofran Odt) 4 mg PO Q6H PRN PRN Reason: Nausea able to take PO Last Admin: 05/21/20 13:31 Dose: 4 mg Documented by: Potassium Chloride (Klor-Con M20) 40 meq PO ONETIME ONE Stop: 05/20/20 13:36 Last Admin: 05/20/20 14:08 Dose: 40 meq Documented by: Potassium Chloride (Klor-Con M20) 40 meq PO ONETIME ONE Stop: 05/20/20 21:01 Last Admin: 05/20/20 21:38 Dose: 40 meq Documented by: Potassium Chloride (Klor-Con M20) 40 meq PO ONETIME ONE Stop: 05/21/20 05:46 Last Admin: 05/21/20 05:59 Dose: 40 meq Documented by: Potassium Chloride (Klor-Con M20) 40 meq PO ONETIME ONE Stop: 05/21/20 14:31 Last Admin: 05/21/20 16:17 Dose: 40 meq Documented by:
== END 2020-05-22 14:23 | disposition home health service (06) | DRG 690 ==
LOC: JP.ED 09:40 → JP.MS 13:36
PROVIDERS: ADMIT Internal Medicine; ATTEND Internal Medicine
DX: N30.00 Acute cystitis without hematuria (principal); E87.1 Hypo-osmolality and hyponatremia; E87.6 Hypokalemia; J43.9 Emphysema, unspecified; G20 Parkinson's disease; E86.0 Dehydration; Z66 Do not resuscitate; B96.20 Unspecified Escherichia coli [E. coli] as the cause of diseases classified elsewhere; H91.90 Unspecified hearing loss, unspecified ear; N39.0 Urinary tract infection, site not specified; E78.00 Pure hypercholesterolemia, unspecified; K58.9 Irritable bowel syndrome, unspecified; I10 Essential (primary) hypertension; J44.9 Chronic obstructive pulmonary disease, unspecified; K57.90 Diverticulosis of intestine, part unspecified, without perforation or abscess without bleeding; F32.9 Major depressive disorder, single episode, unspecified; F41.9 Anxiety disorder, unspecified; Z91.013 Allergy to seafood; E07.9 Disorder of thyroid, unspecified; Z88.6 Allergy status to analgesic agent; K80.20 Calculus of gallbladder without cholecystitis without obstruction; Z98.49 Cataract extraction status, unspecified eye; Z90.49 Acquired absence of other specified parts of digestive tract; Z90.710 Acquired absence of both cervix and uterus; Z91.041 Radiographic dye allergy status; Z88.5 Allergy status to narcotic agent; Z88.8 Allergy status to other drugs, medicaments and biological substances; Z91.048 Other nonmedicinal substance allergy status; Z79.890 Hormone replacement therapy; Z79.899 Other long term (current) drug therapy
CPT/HCPCS: 36415; 71045; 71045-26; 80048; 80053; 81001; 83735; 84132; 85025; 85027; 87086; 87088; 87186; 96365; 96366; 96367; 97110-GP; 97162-GP; 97530-GP; 99284; 99285-25; A9270-GY; J0696; J2001; J3475; J3480; J7030; J7050

== ENCOUNTER 2020-05-30 11:31 | Emergency (ER) | payer MEDICARE, BC ==
--- NOTE | 2020-05-30 12:45 | EDM.PDOC ---
ED HPI GENERAL MEDICAL PROBLEM - General Chief Complaint: Genitourinary Problem Stated Complaint: UTI Time Seen by Provider: 05/30/20 12:39 Source of Information: Reports: Patient, Family, Old Records, RN Notes Reviewed History Limitations: Reports: No Limitations - History of Present Illness INITIAL COMMENTS - FREE TEXT/NARRATIVE: 85-year-old female presents emergency department today with family members concerned about urinary tract infection, she was recently discharged from hospital approximately 10 days ago for dehydration hypokalemia and urinary tract infection did receive replacement in hospital as well as discharged home on Keflex states has been doing well and then she started complaining of urinary frequency over the last 24 hours with some confusion no fevers - Related Data Allergies Allergy/AdvReac Type Severity Reaction Status Date / Time albuterol Allergy Cannot Verified 05/30/20 11:42 Remember codeine Allergy Swelling Verified 05/30/20 11:42 fish oil Allergy Rash Verified 05/30/20 11:42 Iodinated Contrast Media Allergy Hives Verified 05/30/20 11:42 iodine Allergy Swelling Verified 05/30/20 11:42 oxycodone Allergy Hallucinati Verified 05/30/20 11:42 ons povidone-iodine Allergy Swelling Verified 05/30/20 11:42 [From Betadine] soap [From Betadine] Allergy Swelling Verified 05/30/20 11:42 valacyclovir HCl Allergy Rash Verified 05/30/20 11:42 [From Valtrex] fentanyl AdvReac Nausea Verified 05/30/20 11:42 morphine AdvReac Hallucinati Verified 05/30/20 11:42 ons shrimp flavor Allergy Rash Uncoded 05/30/20 11:42 vitamins- minerals Allergy Cannot Uncoded 05/30/20 11:42 Remember Home Meds: Home Meds Acetaminophen [Pain Reliever] 500 mg PO BID PRN 10/15/13 [History] Escitalopram [Lexapro] 10 mg PO DAILY 10/15/13 [History] Pravastatin Sodium 20 mg PO BEDTIME 10/15/13 [History] Topiramate 1.5 tab PO DAILY 10/15/13 [History] Montelukast [Singulair] 10 mg PO BEDTIME 10/28/14 [History] Triamcinolone Acetonide [Kenalog 0.1% Crm] 1 applic TOP BID PRN 12/04/14 [History] Fluticasone Propionate [Flonase Allergy Relief] 1 spray SHANTEL DAILY 07/30/19 [History] Cyclobenzaprine [Flexeril] 10 mg PO TID PRN 01/07/20 [History] Ibuprofen [Advil] 200 mg PO Q6H PRN 01/07/20 [History] Levothyroxine Sodium [Synthroid] 75 mcg PO DAILY 01/07/20 [History] Pantoprazole Sodium [Protonix] 40 mg PO DAILY 01/07/20 [History] Budesonide [Budesonide EC] 3 mg PO ASDIRECTED 05/20/20 [History] Carbidopa/Levodopa [Sinemet 25-100 mg Tablet] 1 tab PO TID 05/20/20 [History] Carboxymethylcellulose Sodium [Artificial Tears] 1 drop EYEBOTH DAILY 05/20/20 [History] Potassium Chloride [Klor-Con M20] 20 meq PO BID 05/20/20 [History] allopurinoL [Zyloprim] 150 mg PO DAILY 05/20/20 [History] Past Medical History HEENT History: Reports: Hard of Hearing, Other (See Below) Other HEENT History: SORE LEFT NARE Cardiovascular History: Reports: Arrhythmia, High Cholesterol, Hypertension, Other (See Below) Other Cardiovascular History: LOW HEART RATE Respiratory History: Reports: Asthma, COPD, SOB Gastrointestinal History: Reports: Cholelithiasis, Diverticulosis, Irritable Bowel Syndrome, Other (See Below) Other Gastrointestinal History: dumping syndrome Genitourinary History: Reports: Pyelonephritis, UTI, Recurrent [employer] History: Reports: Musculoskeletal History: Reports: Fracture, Other (See Below) Other Musculoskeletal History: H/O BROKEN TAILBONE AND LEFT LOWER LEG FX Neurological History: Reports: Other (See Below) Other Neuro History: tremors Psychiatric History: Reports: Anxiety, Depression Endocrine/Metabolic History: Reports: Other (See Below) Other Endocrine/Metabolic History: thyroid disease Oncologic (Cancer) History: Reports: Uterine Dermatologic History: Reports: Other (See Below) Other Dermatologic History: rash - Infectious Disease History Infectious Disease History: Reports: Chicken Pox, Measles, Mumps, Shingles - Past Surgical History HEENT Surgical History: Reports: Cataract Surgery Other Cardiovascular Surgeries/Procedures: holter monitor placed in Fred[place] today 10/11/2019 GI Surgical History: Reports: Cholecystectomy, Colonoscopy, EGD, Hernia Repair/Other, Other (See Below) Other GI Surgeries/Procedures: bile duct removed Female Surgical History: Reports: Hysterectomy Social & Family History - Family History Family Medical History: No Pertinent Family History - Tobacco Use Tobacco Use Status *Q: Never Tobacco User - Caffeine Use Caffeine Use: Reports: Tea Other Caffeine Use: one cappucino in the morning - Recreational Drug Use Recreational Drug Use: No ED ROS GENERAL - Review of Systems Review Of Systems: See Below Constitutional: Denies: Fever, Chills HEENT: Reports: No Symptoms Respiratory: Reports: No Symptoms Cardiovascular: Reports: No Symptoms GI/Abdominal: Reports: No Symptoms : Reports: Frequency ED EXAM, RENAL/ - Physical Exam Exam: See Below Exam Limited By: No Limitations General Appearance: Alert, WD/WN, No Apparent Distress Respiratory/Chest: No Respiratory Distress GI/Abdominal: Soft, Non-Tender Back Exam: No: CVA Tenderness (R), CVA Tenderness (L) Course - Vital Signs Last Recorded V/S: Last Vital Signs Temp 98.3 F 05/30/20 11:55 Pulse 47 L 05/30/20 12:50 Resp 16 05/30/20 11:55 BP 159/67 H 05/30/20 12:50 Pulse Ox 99 05/30/20 12:50 - Orders/Labs/Meds Labs: Laboratory Tests 05/30/20 05/30/20 05/30/20 Range/Units 12:52 12:52 13:00 WBC 6.7 (4.5-11.0) K/uL RBC 3.76 (3.30-5.50) M/uL Hgb 11.7 L (12.0-15.0) g/dL Hct 34.1 L (36.0-48.0) % MCV 91 (80-98) fL MCH 31 (27-31) pg MCHC 34 (32-36) % Plt Count 215 (150-400) K/uL Neut % (Auto) 74 H (36-66) % Lymph % (Auto) 16 L (24-44) % Cobb % (Auto) 9 H (2-6) % Eos % (Auto) 1 L (2-4) % Baso % (Auto) 0 (0-1) % Sodium 137 L (140-148) mmol/L Potassium 3.5 L (3.6-5.2) mmol/L Chloride 103 (100-108) mmol/L Carbon Dioxide 23 (21-32) mmol/L Anion Gap 14.5 H (5.0-14.0) mmol/L BUN 8 (7-18) mg/dL Creatinine 0.9 (0.6-1.0) mg/dL Est Cr Clr Drug Dosing 42.62 mL/min Estimated GFR (MDRD) 60 (>60) Glucose 90 (74-106) mg/dL Calcium 8.5 (8.5-10.1) mg/dL Urine Color Yellow (YELLOW) Urine Appearance Slightly cloudy A (CLEAR) Urine pH 6.5 (5.0-8.0) Ur Specific [place] 1.020 (1.008-1.030) Urine Protein Negative (NEGATIVE) mg/dL Urine Glucose (UA) Negative (NEGATIVE) mg/dL Urine Ketones Negative (NEGATIVE) mg/dL Urine Occult Blood Negative (NEGATIVE) Urine Nitrite Negative (NEGATIVE) Urine Bilirubin Negative (NEGATIVE) Urine Urobilinogen 0.2 (0.2-1.0) EU/dL Ur Leukocyte Esterase Negative (NEGATIVE) Urine RBC 0-5 (0-5) Urine WBC 0-5 (0-5) Ur Epithelial Cells Moderate Amorphous Sediment Not seen Urine Bacteria Not seen Urine Mucus Not seen Departure - Departure Time of Disposition: 14:06 Disposition: Home, Self-Care 01 Condition: Fair Clinical Impression: Urinary frequency - Discharge Information Referrals: Andrzej Wright MD [Primary Care Provider] - Forms: ED Department Discharge Additional Instructions: Continue with regular medications, please followup with your primary care provider in 3-5 days if not better, please call return to the emergency department with worsening of symptoms. Sepsis Event Note (ED) - Evaluation Sepsis Screening Result: No Definite Risk - Focused Exam Vital Signs: Vital Signs Temp Pulse Resp BP Pulse Ox 05/30/20 12:50 47 L 159/67 H 99 05/30/20 12:16 53 L 149/71 H 96 05/30/20 11:55 98.3 F 58 L 16 146/69 H 95 05/30/20 11:45 98.3 F 58 L 16 146/69 H 95 - Assessment/Plan Plan: Assessment Acuity = acute Site and laterality = urinary frequency Etiology = probably related to postinfectious process Manifestations = none Location of injury = Home Lab values = CBC, BMP, urinalysis unremarkable Plan Mainly reassurance keep follow-up appointment with primary care in the next 3 to 5 days for further evaluation This note was dictated using [employer] voice recognition software please call with any questions on syntax or grammar.
[2020-05-30 12:50] VITALS: BP 159/67; PULSE 47
== END 2020-05-30 14:29 | disposition home or self-care (01) ==
LOC: JP.ED 11:31
DX: R35.0 Frequency of micturition (principal); E78.00 Pure hypercholesterolemia, unspecified; I10 Essential (primary) hypertension; J44.9 Chronic obstructive pulmonary disease, unspecified; F41.9 Anxiety disorder, unspecified; F32.9 Major depressive disorder, single episode, unspecified; E07.9 Disorder of thyroid, unspecified; Z79.899 Other long term (current) drug therapy; Z88.8 Allergy status to other drugs, medicaments and biological substances; Z88.5 Allergy status to narcotic agent; Z91.018 Allergy to other foods; Z91.041 Radiographic dye allergy status; Z88.6 Allergy status to analgesic agent; Z91.013 Allergy to seafood
CPT/HCPCS: 36415; 80048; 81001; 85025; 99283

== ENCOUNTER 2020-06-23 23:54 | Emergency (ER) | payer MEDICARE, BC ==
--- NOTE | 2020-06-24 00:23 | EDM.PDOC ---
ED HPI GENERAL MEDICAL PROBLEM - General Chief Complaint: Genitourinary Problem Stated Complaint: BLADDER INFECTION Time Seen by Provider: 06/24/20 00:10 Source of Information: Reports: Patient, Family History Limitations: Reports: No Limitations - History of Present Illness INITIAL COMMENTS - FREE TEXT/NARRATIVE: 85-year-old female who was in the hospital a month and a half ago with a UTI, has been doing well but over the past 6 hours has developed increased urinary frequency, dysuria, and urgency. No fevers or chills, no back pain. No nausea or vomiting. Onset: Sudden (Symptoms started rather suddenly about 6 hours ago) Location: Reports: Abdomen (Some lower abdominal discomfort) Groin Pain Score (Numeric/FACES): 5 - Related Data Allergies Allergy/AdvReac Type Severity Reaction Status Date / Time albuterol Allergy Cannot Verified 06/23/20 23:57 Remember codeine Allergy Swelling Verified 06/23/20 23:57 fish oil Allergy Rash Verified 06/23/20 23:57 Iodinated Contrast Media Allergy Hives Verified 06/23/20 23:57 iodine Allergy Swelling Verified 06/23/20 23:57 oxycodone Allergy Hallucinati Verified 06/23/20 23:57 ons povidone-iodine Allergy Swelling Verified 06/23/20 23:57 [From Betadine] soap [From Betadine] Allergy Swelling Verified 06/23/20 23:57 valacyclovir HCl Allergy Rash Verified 06/23/20 23:57 [From Valtrex] fentanyl AdvReac Nausea Verified 06/23/20 23:57 morphine AdvReac Hallucinati Verified 06/23/20 23:57 ons shrimp flavor Allergy Rash Uncoded 06/23/20 23:57 vitamins- minerals Allergy Cannot Uncoded 06/23/20 23:57 Remember Home Meds: Home Meds Acetaminophen [Pain Reliever] 500 mg PO BID PRN 10/15/13 [History] Escitalopram [Lexapro] 10 mg PO DAILY 10/15/13 [History] Pravastatin Sodium 20 mg PO BEDTIME 10/15/13 [History] Topiramate 1.5 tab PO DAILY 10/15/13 [History] Montelukast [Singulair] 10 mg PO BEDTIME 10/28/14 [History] Triamcinolone Acetonide [Kenalog 0.1% Crm] 1 applic TOP BID PRN 12/04/14 [History] Fluticasone Propionate [Flonase Allergy Relief] 1 spray SHANTEL DAILY 07/30/19 [History] Cyclobenzaprine [Flexeril] 10 mg PO TID PRN 01/07/20 [History] Ibuprofen [Advil] 200 mg PO Q6H PRN 01/07/20 [History] Levothyroxine Sodium [Synthroid] 75 mcg PO DAILY 01/07/20 [History] Pantoprazole Sodium [Protonix] 40 mg PO DAILY 01/07/20 [History] Budesonide [Budesonide EC] 3 mg PO ASDIRECTED 05/20/20 [History] Carbidopa/Levodopa [Sinemet 25-100 mg Tablet] 1 tab PO TID 05/20/20 [History] Carboxymethylcellulose Sodium [Artificial Tears] 1 drop EYEBOTH DAILY 05/20/20 [History] Potassium Chloride [Klor-Con M20] 20 meq PO BID 05/20/20 [History] allopurinoL [Zyloprim] 150 mg PO DAILY 05/20/20 [History] Past Medical History HEENT History: Reports: Hard of Hearing, Other (See Below) Other HEENT History: SORE LEFT NARE Cardiovascular History: Reports: Arrhythmia, High Cholesterol, Hypertension, Other (See Below) Other Cardiovascular History: LOW HEART RATE Respiratory History: Reports: Asthma, COPD, SOB Gastrointestinal History: Reports: Cholelithiasis, Diverticulosis, Irritable Bowel Syndrome, Other (See Below) Other Gastrointestinal History: dumping syndrome Genitourinary History: Reports: Pyelonephritis, UTI, 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: Musculoskeletal History: Reports: Fracture, Other (See Below) Other Musculoskeletal History: H/O BROKEN TAILBONE AND LEFT LOWER LEG FX Neurological History: Reports: Other (See Below) Other Neuro History: tremors Psychiatric History: Reports: Anxiety, Depression Endocrine/Metabolic History: Reports: Other (See Below) Other Endocrine/Metabolic History: thyroid disease Oncologic (Cancer) History: Reports: Uterine Dermatologic History: Reports: Other (See Below) Other Dermatologic History: rash - Infectious Disease History Infectious Disease History: Reports: Chicken Pox, Measles, Mumps, Shingles - Past Surgical History HEENT Surgical History: Reports: Cataract Surgery Other Cardiovascular Surgeries/Procedures: holter monitor placed in [place] today 10/11/2019 GI Surgical History: Reports: Cholecystectomy, Colonoscopy, EGD, Hernia Repair/Other, Other (See Below) Other GI Surgeries/Procedures: bile duct removed Female Surgical History: Reports: Hysterectomy Social & Family History - Family History Family Medical History: No Pertinent Family History - Tobacco Use Tobacco Use Status *Q: Never Tobacco User - Caffeine Use Caffeine Use: Reports: None Other Caffeine Use: one cappucino in the morning - Recreational Drug Use Recreational Drug Use: No ED ROS GENERAL - Review of Systems Review Of Systems: See Below Constitutional: Reports: Malaise. Denies: Fever, Chills Respiratory: Denies: Shortness of Breath Cardiovascular: Denies: Chest Pain GI/Abdominal: Denies: Vomiting : Reports: Dysuria, Frequency, Urgency Neurological: Denies: Headache ED EXAM, RENAL/ - Physical Exam Exam: See Below Exam Limited By: No Limitations General Appearance: Alert, No Apparent Distress Respiratory/Chest: No Respiratory Distress GI/Abdominal: Soft, Non-Tender. No: Distended Neurological: Alert, Oriented Psychiatric: Normal Affect, Normal Mood Skin Exam: Warm, Dry Course - Vital Signs Last Recorded V/S: Last Vital Signs Temp 97.4 F 06/24/20 00:13 Pulse 71 06/24/20 00:13 Resp 16 06/24/20 00:13 BP 149/70 H 06/24/20 00:13 Pulse Ox 95 06/24/20 00:13 - Orders/Labs/Meds Labs: Laboratory Tests 06/24/20 Range/Units 00:21 Urine Color Yellow (YELLOW) Urine Appearance Turbid A (CLEAR) Urine pH 6.0 (5.0-8.0) Ur Specific [place] 1.015 (1.008-1.030) Urine Protein 100 H (NEGATIVE) mg/dL Urine Glucose (UA) Negative (NEGATIVE) mg/dL Urine Ketones Negative (NEGATIVE) mg/dL Urine Occult Blood Trace-lysed H (NEGATIVE) Urine Nitrite Negative (NEGATIVE) Urine Bilirubin Negative (NEGATIVE) Urine Urobilinogen 0.2 (0.2-1.0) EU/dL Ur Leukocyte Esterase Moderate H (NEGATIVE) Urine RBC 0-5 (0-5) Urine WBC Packed H (0-5) Ur Epithelial Cells Rare Amorphous Sediment Not seen Urine Bacteria Many Urine Mucus Not seen - Re-Assessments/Exams Free Text/Narrative Re-Assessment/Exam: 06/24/20 00:23 And mini cath UA was obtained. 06/24/20 00:34 Mini cath confirmed bacteriuria with many bacteria and many WBCs. Nitrite was negative. A culture was initiated and the patient will be placed on cephalexin 500 mg 3 times a day for which she responded to very well 6 weeks ago. Start antibiotic tonight and take until gone, return if worsening despite treatment. Departure - Departure Time of Disposition: 00:44 Disposition: Home, Self-Care 01 Clinical Impression: UTI, Urinary tract infectious disease - Discharge Information Instructions: Urinary Tract Infection, Adult, [id number] Referrals: Andrzej Wright MD [Primary Care Provider] - Forms: ED Department Discharge Care Plan Goals: Take antibiotic 3 times a day until gone, stay hydrated and return anytime if worsening such as fever, increased pain or vomiting the medication. Consider rechecking in 2 to 3 days if not improving satisfactorily. Sepsis Event Note (ED) - Evaluation Sepsis Screening Result: No Definite Risk
[2020-06-24 00:41] VITALS: BP 149/70; PULSE 71
== END 2020-06-24 00:44 | disposition home or self-care (01) ==
LOC: JP.ED 23:54
DX: N39.0 Urinary tract infection, site not specified (principal); E78.00 Pure hypercholesterolemia, unspecified; I10 Essential (primary) hypertension; J44.9 Chronic obstructive pulmonary disease, unspecified; Z88.8 Allergy status to other drugs, medicaments and biological substances; Z88.5 Allergy status to narcotic agent; Z91.018 Allergy to other foods; Z91.041 Radiographic dye allergy status; Z91.013 Allergy to seafood; Z79.899 Other long term (current) drug therapy
CPT/HCPCS: 81001; 87086; 87088; 87186; 99283

== ENCOUNTER 2020-07-09 05:34 | Day surgery (SDC) | payer MEDICARE, BC ==
[2020-07-09] MEDS ORDERED: Dextrose 5%-Lactated Ringers 1,000 ML IV SCH (06:30)
[2020-07-09] MEDS ORDERED: Ondansetron 4 MG Tab.DIS PO ONE (09:00)
[2020-07-09 09:37] VITALS: BP 132/67; PULSE 55
--- NOTE | 2020-07-12 14:18 | OR ---
DATE OF PROCEDURE: 07/09/2020 SURGEON: Tristen Mota MD PREOPERATIVE DIAGNOSIS: Dysphagia referable to the distal esophagus. POSTOPERATIVE DIAGNOSIS: Dysphagia referable to distal esophagus associated with esophageal dysmotility and retained food within the mid and distal esophagus. OPERATIVE PROCEDURE: Esophagogastroduodenoscopy with: 1. Removal of foreign body (retained esophageal food), (82012). 2. Dilation of esophagus (23653). ANESTHESIA: IV sedation. INDICATIONS FOR PROCEDURE: An 85-year-old presenting with some increasing dysphagia referable to the distal esophagus. In the past, she was noted to have some esophageal dysmotility which responded to esophageal dilation. Plan is to proceed with upper GI endoscopy with dilation as indicated. Potential risks including bleeding and perforation were discussed and the patient wishes to proceed. DETAILS OF PROCEDURE: The patient was taken to the operating room and placed in a left lateral decubitus position. IV sedation was administered after which the upper GI endoscope was passed orally through the length of the esophagus and the stomach with retroflexion view of the fundus, and thereafter through the pyloric channel and into the proximal duodenum. Findings included a normal hypopharynx, larynx, and upper esophageal sphincter. In the esophageal body and distal esophagus, there was some retained solid and liquid ingested food. This was at that point angulated and moved down into the stomach to avoid aspiration risk during the remainder of the procedure. The patient had a small hiatal hernia present in the esophagogastric junction and that area in general was wide open. There was no mechanical stricturing indicating that we are dealing with more of an esophageal dysmotility issue. The remainder of the stomach, pyloric sphincter, and duodenum were unremarkable. At this point, a guidewire was passed through the stomach and the gastroscope removed. Over the guidewire, a 54-[place] Savary dilator was placed. This was held in position for 1 minute after which the catheter and wire were removed and the procedure then concluded. The patient was taken to the recovery room in satisfactory condition. Assuming that today's examination is somewhat helpful as it has been in the past, a repeat endoscopy and dilation could be done as needed over time. Tristen Mota MD /[id number]
== END 2020-07-09 10:00 | disposition home or self-care (01) ==
LOC: JP.SDS 05:34
PROVIDERS: ATTEND Surgery
DX: R13.10 Dysphagia, unspecified (principal); K44.9 Diaphragmatic hernia without obstruction or gangrene; J44.9 Chronic obstructive pulmonary disease, unspecified; E78.5 Hyperlipidemia, unspecified; N18.9 Chronic kidney disease, unspecified
CPT/HCPCS: 43247; 43248; A9270; J7121

== ENCOUNTER 2020-07-16 16:13 | Inpatient (IN) | payer MEDICARE, BC ==
[2020-07-16] MEDS ORDERED: Sodium Chloride 0.9% 10 ML Syringe FLUSH PRN (16:42)
--- NOTE | 2020-07-16 17:22 | EDM.PDOC ---
ED HPI GENERAL MEDICAL PROBLEM - General Chief Complaint: Respiratory Problem Stated Complaint: DEHYDRATED,S.O.B. Time Seen by Provider: 07/16/20 16:33 Source of Information: Reports: Patient, Family History Limitations: Reports: No Limitations - History of Present Illness INITIAL COMMENTS - FREE TEXT/NARRATIVE: Alysa is an 85-year-old female presenting to the ER with complaint of dehydration, vomiting, and some diarrhea. Patient reports over the last couple of days she has had numerous episodes of vomiting and has been unable to take her medications or keep much in the way of food down. The patient's son reports that they have been trying to give her a couple tablespoons of applesauce with her medication but she throws that up. In the last 24 hours she has had 1 nancy le of water which is approximately 14 ounces. On top of this she has had at least 4 emesis and 2 watery stools. The patient states she feels lightheaded and very dehydrated. She denies any fever, but has had chills. She denies any abdominal pain but has had shortness of breath without a cough. The patient recently underwent endoscopy where it was found that she had impacted food bolus. She did undergo removal of this and the dilation of the distal esophagus done by Dr. Mota. - Related Data Allergies Allergy/AdvReac Type Severity Reaction Status Date / Time albuterol Allergy Cannot Verified 07/16/20 16:57 Remember codeine Allergy Swelling Verified 07/16/20 16:57 fish oil Allergy Rash Verified 07/16/20 16:57 Iodinated Contrast Media Allergy Hives Verified 07/16/20 16:57 iodine Allergy Swelling Verified 07/16/20 16:57 lidocaine Allergy Rash Verified 07/16/20 16:57 oxycodone Allergy Hallucinati Verified 07/16/20 16:57 ons povidone-iodine Allergy Swelling Verified 07/16/20 16:57 [From Betadine] soap [From Betadine] Allergy Swelling Verified 07/16/20 16:57 valacyclovir HCl Allergy Rash Verified 07/16/20 16:57 [From Valtrex] fentanyl AdvReac Nausea Verified 07/16/20 16:57 morphine AdvReac Hallucinati Verified 07/16/20 16:57 ons shrimp flavor Allergy Rash Uncoded 07/16/20 16:57 vitamins- minerals Allergy Nausea Uncoded 07/16/20 16:57 Home Meds: Home Meds Acetaminophen [Pain Reliever] 500 mg PO BID PRN 10/15/13 [History] Escitalopram [Lexapro] 10 mg PO DAILY 10/15/13 [History] Pravastatin Sodium 20 mg PO BEDTIME 10/15/13 [History] Topiramate 150 mg PO DAILY 10/15/13 [History] Montelukast [Singulair] 10 mg PO BEDTIME 10/28/14 [History] Triamcinolone Acetonide [Kenalog 0.1% Crm] 1 applic TOP BID PRN 12/04/14 [History] Fluticasone Propionate [Flonase Allergy Relief] 2 spray SHANTEL DAILY 07/30/19 [History] Cyclobenzaprine [Flexeril] 10 mg PO TID PRN 01/07/20 [History] Levothyroxine Sodium [Synthroid] 75 mcg PO DAILY 01/07/20 [History] Pantoprazole Sodium [Protonix] 40 mg PO DAILY 01/07/20 [History] Budesonide [Budesonide EC] 9 mg PO DAILY 05/20/20 [History] Carbidopa/Levodopa [Sinemet 25-100 mg Tablet] 1 tab PO QID 05/20/20 [History] Potassium Chloride [Klor-Con M20] 20 meq PO BID 05/20/20 [History] allopurinoL [Zyloprim] 150 mg PO DAILY 05/20/20 [History] Carboxymethylcellulose Sodium [Artificial Tears] 1 drop EYEBOTH DAILY 07/07/20 [History] Carbidopa/Levodopa [Carbidopa-Levo ER 25-100] 1 tab PO BEDTIME 07/09/20 [His tory] Fluconazole [Diflucan] 200 mg PO DAILY 07/09/20 [History] Ondansetron [Ondansetron ODT] 4 mg PO ASDIRECTED 07/16/20 [History] Past Medical History HEENT History: Reports: Hard of Hearing, Other (See Below) Other HEENT History: SORE LEFT NARE, wears glasses Cardiovascular History: Reports: Arrhythmia, High Cholesterol, Hypertension, Other (See Below) Other Cardiovascular History: LOW HEART RATE Respiratory History: Reports: Asthma, COPD, SOB Gastrointestinal History: Reports: Cholelithiasis, Chronic Diarrhea, Diverticulosis, Irritable Bowel Syndrome, Other (See Below) Other Gastrointestinal History: dumping syndrome, colitis Genitourinary History: Reports: Pyelonephritis, UTI, 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: Musculoskeletal History: Reports: Fracture, Other (See Below) Other Musculoskeletal History: H/O BROKEN TAILBONE AND LEFT LOWER LEG FX Neurological History: Reports: Other (See Below) Other Neuro History: tremors, Parkinson's disease Psychiatric History: Reports: Anxiety, Depression Endocrine/Metabolic History: Reports: Hypothyroidism, Other (See Below) Other Endocrine/Metabolic History: thyroid disease Oncologic (Cancer) History: Reports: Uterine Dermatologic History: Reports: Other (See Below) Other Dermatologic History: rash - Infectious Disease History Infectious Disease History: Reports: Chicken Pox, Measles, Mumps, Shingles - Past Surgical History HEENT Surgical History: Reports: Cataract Surgery Other Cardiovascular Surgeries/Procedures: holter monitor placed in [place] today 10/11/2019, loop recorder (heart monitor) GI Surgical History: Reports: Cholecystectomy, Colonoscopy, EGD, Hernia Repair/Other, Other (See Below) Other GI Surgeries/Procedures: bile duct removed. egd dilation Jul 09 2020 Female Surgical History: Reports: Hysterectomy Social & Family History - Family History Family Medical History: No Pertinent Family History - Tobacco Use Tobacco Use Status *Q: Never Tobacco User - Caffeine Use Caffeine Use: Reports: None Other Caffeine Use: one cappucino in the morning - Recreational Drug Use Recreational Drug Use: No ED ROS GENERAL - Review of Systems Review Of Systems: See Below Constitutional: Reports: Chills, Decreased Appetite HEENT: Reports: No Symptoms Respiratory: Reports: Shortness of Breath Cardiovascular: Reports: No Symptoms Endocrine: Reports: No Symptoms GI/Abdominal: Reports: Diarrhea, Nausea, Vomiting : Reports: No Symptoms Musculoskeletal: Reports: No Symptoms Skin: Reports: No Symptoms Neurological: Reports: Dizziness (Lightheadedness) Psychiatric: Reports: No Symptoms Hematologic/Lymphatic: Reports: No Symptoms Immunologic: Reports: No Symptoms ED EXAM, GI/ABD - Physical Exam Exam: See Below Exam Limited By: No Limitations General Appearance: Alert Eyes: Bilateral: EOMI Throat/Mouth: Normal Lips, Normal Voice, No Airway Compromise, Other (Slightly moist mucous membranes.) Head: Atraumatic, Normocephalic Neck: Normal Inspection, Supple, Non-Tender Respiratory/Chest: No Respiratory Distress, Lungs Clear, Normal Breath Sounds Cardiovascular: Normal Peripheral Pulses, Regular Rate, Rhythm, No Murmur GI/Abdominal Exam: Soft, Non-Tender, Distended (No tympany to percussion), Abnormal Bowel Sounds (Hyperactive bowel sounds with tinkles and rushes.) Neurological: Alert, Oriented, Normal Cognition, No Motor/Sensory Deficits Psychiatric: Normal Affect, Normal Mood Skin Exam: Warm, Dry, Intact, Normal Color Lymphatic: No Adenopathy #1 Interpretation EKG Date: 07/16/20 Time: 17:05 Rhythm: NSR Rate (Beats/Min): 64 [place]: Normal P-Wave: Present QRS: Normal ST-T: Normal QT: Normal Course - Vital Signs Last Recorded V/S: Last Vital Signs Temp 36.4 C 07/16/20 16:53 Pulse 62 07/16/20 17:43 Resp 16 07/16/20 16:53 BP 134/59 L 07/16/20 17:43 Pulse Ox 98 07/16/20 17:43 - Orders/Labs/Meds Orders: Active Orders 24 hr Category Date Time Status EKG Documentation Completion [RC] ASDIRECTED Care 07/16/20 16:42 Active Sodium Chloride 0.9% [Normal Saline] 1,000 ml Med 07/16/20 18:30 Ordered IV .BOLUS Sodium Chloride 0.9% [Saline Flush] Med 07/16/20 16:42 Active 10 ml FLUSH ASDIRECTED PRN cefTRIAXone [Rocephin] 1 gm Med 07/16/20 19:00 Ordered Sodium Chloride 0.9% [Normal Saline] 50 ml IV Q24H Saline Lock Insert [OM.PC] Routine Oth 07/16/20 16:42 Ordered EKG 12 Lead [EK] Routine Ther 07/16/20 16:42 Ordered Medication Orders Sodium Chloride (Normal Saline) 1,000 mls @ 500 mls/hr IV .BOLUS ONE Stop: 07/16/20 20:29 Ceftriaxone Sodium 1 gm/ (Sodium Chloride) 50 mls @ 100 mls/hr IV Q24H ROSELIA Sodium Chloride (Saline Flush) 10 ml FLUSH ASDIRECTED PRN PRN Reason: Keep Vein Open Last Admin: 07/16/20 17:31 Dose: 10 ml Documented by: PREILOR Labs: Laboratory Tests 07/16/20 07/16/20 07/16/20 Range/Units 16:55 16:55 17:50 WBC 8.7 (4.5-11.0) K/uL RBC 3.62 (3.30-5.50) M/uL Hgb 11.1 L (12.0-15.0) g/dL Hct 33.3 L (36.0-48.0) % MCV 92 (80-98) fL MCH 31 (27-31) pg MCHC 33 (32-36) % Plt Count 244 (150-400) K/uL Neut % (Auto) 74 H (36-66) % Lymph % (Auto) 14 L (24-44) % [place] % (Auto) 10 H (2-6) % Eos % (Auto) 1 L (2-4) % Baso % (Auto) 0 (0-1) % Sodium 132 L (140-148) mmol/L Potassium 3.7 (3.6-5.2) mmol/L Chloride 99 L (100-108) mmol/L Carbon Dioxide 22 (21-32) mmol/L Anion Gap 14.7 H (5.0-14.0) mmol/L BUN 12 (7-18) mg/dL Creatinine 1.0 (0.6-1.0) mg/dL Est Cr Clr Drug Dosing 38.36 mL/min Estimated GFR (MDRD) 53 L (>60) Glucose 96 (74-106) mg/dL Calcium 8.7 (8.5-10.1) mg/dL Total Bilirubin 0.7 (0.2-1.0) mg/dL AST 6 L (15-37) U/L ALT 9 L (12-78) U/L Alkaline Phosphatase 87 (46-116) U/L Total Protein 6.1 L (6.4-8.2) g/dL Albumin 3.2 L (3.4-5.0) g/dL Globulin 2.9 (2.3-3.5) g/dL Albumin/Globulin Ratio 1.1 L (1.2-2.2) Urine Color Yellow (YELLOW) Urine Appearance Slightly cloudy A (CLEAR) Urine pH 6.5 (5.0-8.0) Ur Specific [place] 1.025 (1.008-1.030) Urine Protein 30 H (NEGATIVE) mg/dL Urine Glucose (UA) Negative (NEGATIVE) mg/dL Urine Ketones 15 H (NEGATIVE) mg/dL Urine Occult Blood Negative (NEGATIVE) Urine Nitrite Positive H (NEGATIVE) Urine Bilirubin Small H (NEGATIVE) Urine Urobilinogen 2.0 H (0.2-1.0) EU/dL Ur Leukocyte Esterase Moderate H (NEGATIVE) Urine RBC 0-5 (0-5) Urine WBC Semi-packed H (0-5) Ur Epithelial Cells Moderate Amorphous Sediment Not seen Urine Bacteria Many Urine Mucus Not seen Meds: Medications Generic Name Dose Route Start Last Admin Trade Name Freq PRN Reason Stop Dose Admin Sodium Chloride 1,000 mls @ 500 mls/hr 07/16/20 18:30 Normal Saline IV 07/16/20 20:29 .BOLUS ONE Ceftriaxone Sodium 1 gm/ 50 mls @ 100 mls/hr 07/16/20 19:00 Sodium Chloride IV Q24H ROSELIA Sodium Chloride 10 ml 07/16/20 16:42 07/16/20 17:31 Saline Flush FLUSH 10 ml ASDIRECTED PRN Administration Keep Vein Open - Re-Assessments/Exams Free Text/Narrative Re-Assessment/Exam: 07/16/20 17:21 labs reviewed showing mild hyponatremia at 132. Patient's potassium is normal at 3.8. Her protein and albumin are both low. Her renal function is also diminished. We proceeded with a CT of the abdomen and pelvis without contrast demonstrating previous hiatal hernia repair with a Kaitlynn fundoplication. There is diverticulosis without evidence of diverticulitis. There is no evidence of acute obstruction. 07/16/20 18:36 review of the urinalysis shows positive nitrites and leukocyte esterase. Packed WBCs per high field view. This may be the nidus for her vomiting although gastroenteritis would be more fitting with the vomiting and diarrhea. 07/16/20 18:37 I discussed the case with Matilde Malcolm to arrange for admission of the patient for rehydration, nausea and vomiting control, and initiating treatment for the urinary tract infection. Departure - Departure Time of Disposition: 18:38 Disposition: Admitted As Inpatient 68 Clinical Impression: Urinary tract infection in female, Shortness of breath, Dehydration Nausea and vomiting Qualifiers: Vomiting type: bilious vomiting Qualified Code(s): R11.14 - Bilious vomiting Diarrhea Qualifiers: Diarrhea type: presumed infectious Qualified Code(s): R19.7 - Diarrhea, unspecified - Discharge Information *PRESCRIPTION DRUG MONITORING PROGRAM REVIEWED*: Not Applicable *COPY OF PRESCRIPTION DRUG MONITORING REPORT IN PATIENT JOSE: Not Applicable Referrals: Andrzej Wright MD [Primary Care Provider] - Forms: ED Department Discharge Sepsis Event Note (ED) - Evaluation Sepsis Screening Result: No Definite Risk - Focused Exam Vital Signs: Vital Signs Temp Pulse Resp BP Pulse Ox 07/16/20 17:43 62 134/59 L 98 07/16/20 16:53 36.4 C 67 16 128/60 98 07/16/20 16:33 36.4 C 67 16 128/60 98 - My Orders Last 24 Hours: My Active Orders 07/16/20 16:42 EKG Documentation Completion [RC] ASDIRECTED Sodium Chloride 0.9% [Saline Flush] 10 ml FLUSH ASDIRECTED PRN Saline Lock Insert [OM.PC] Routine EKG 12 Lead [EK] Routine 07/16/20 18:30 Sodium Chloride 0.9% [Normal Saline] 1,000 ml IV .BOLUS 07/16/20 19:00 cefTRIAXone [Rocephin] 1 gm Sodium Chloride 0.9% [Normal Saline] 50 ml IV Q24H - Assessment/Plan Last 24 Hours: My Active Orders 07/16/20 16:42 EKG Documentation Completion [RC] ASDIRECTED Sodium Chloride 0.9% [Saline Flush] 10 ml FLUSH ASDIRECTED PRN Saline Lock Insert [OM.PC] Routine EKG 12 Lead [EK] Routine 07/16/20 18:30 Sodium Chloride 0.9% [Normal Saline] 1,000 ml IV .BOLUS 07/16/20 19:00 cefTRIAXone [Rocephin] 1 gm Sodium Chloride 0.9% [Normal Saline] 50 ml IV Q24H
--- NOTE | 2020-07-16 18:17 | CRLCT ---
INDICATION: Vomiting and diarrhea TECHNIQUE: Axial images were obtained from the diaphragm to the pubic symphysis. Reformats were obtained in the coronal and sagittal plane. IV Contrast: None Oral Contrast: None COMPARISON: None. FINDINGS: Lower chest: Mild discoid atelectasis lung bases. Liver: Unremarkable. Normal in size and attenuation. No masses. Gallbladder and bile ducts: Status post cholecystectomy. Spleen: Unremarkable. Normal in size without mass. Pancreas: Mild pancreatic atrophy. Adrenal glands: Unremarkable. No nodules. Kidneys: Nonobstructing nephrolithiasis right kidney. Vasculature: Atherosclerosis without abdominal aortic aneurysm. GI tract: Status post gastroesophageal surgery with small hiatal hernia. No dilated loops of large or small intestine. Colonic diverticulosis. Pelvis: Status post hysterectomy. Bones: Rightward curvature of the lumbar spine with diffuse degenerative disc disease. At the skin surface at the anterior subcutaneous tissues there is a 10 millimeter soft tissue nodule (2, 102). IMPRESSION: 1. Colonic diverticulosis without dariela diverticulitis. 2. Nonobstructing nephrolithiasis. 3. Anterior subcutaneous nodule measuring 10 millimeters at the level of the pelvis. Differential diagnosis includes a subcutaneous lymph node or granuloma. Please note that all CT scans at this facility use dose modulation, iterative reconstruction, and/or weight-based dosing when appropriate to reduce radiation dose to as low as reasonably achievable. Dictated by Harvey Medrano MD @ Jul 16 2020 5:59PM Signed by Dr. Harvey Medrano @ Jul 16 2020 6:15PM
[2020-07-16] MEDS ORDERED: Sodium Chloride 0.9% 1,000 ML IV ONE (18:30)
[2020-07-16] MEDS: cefTRIAXone 1 GM in Sodium Chloride 0.9% 50 ML IV SCH (18:49)
--- NOTE | 2020-07-16 18:51 | PCM.HP.2 ---
H&P History of Present Illness - General Date of Service: 07/16/20 Admit Problem/Dx: Admission Diagnosis/Problem Admission Diagnosis/Problem Urinary tract infection Source of Information: Patient, Family (Son Roly [employer] employee), Provider, RN History Limitations: Reports: Other (hard of hearing) - History of Present Illness Initial Comments - Free Text/Narative: Alysa is an 85-year-old female presenting to the ER with complaint of dehydration, vomiting, and some diarrhea. Patient reports over the last couple of days she has had numerous episodes of vomiting and has been unable to take her medications or keep much in the way of food down. The patient's son reports that they have been trying to give her a couple tablespoons of applesauce with her medication but she throws that up. In the last 24 hours she has had 1 bottle of water which is approximately 14 ounces. On top of this she has had at least 4 emesis and 2 watery stools. The patient states she feels lightheaded and very dehydrated. She denies any fever, but has had chills. She denies any abdominal pain but has had shortness of breath without a cough. The patient recently underwent endoscopy where it was found that she had impacted food bolus. She did undergo removal of this and the dilation of the distal esophagus done by Dr. Mota. 07/16/20 17:21 labs reviewed showing mild hyponatremia at 132. Patient's potassium is normal at 3.8. Her protein and albumin are both low. Her renal function is also diminished. We proceeded with a CT of the abdomen and pelvis without contrast demonstrating previous hiatal hernia repair with a Kaitlynn fundoplication. There is diverticulosis without evidence of diverticulitis. There is no evidence of acute obstruction. 07/16/20 18:36 review of the urinalysis shows positive nitrites and leukocyte esterase. Packed WBCs per high field view. This may be the nidus for her vomiting although gastroenteritis would be more fitting with the vomiting and diarrhea. 07/16/20 18:37 I discussed the case with Matilde Malcolm to arrange for admission of the patient for rehydration, nausea and vomiting control, and initiating treatment for the urinary tract infection. Onset of Symptoms: Reports: Gradual (two weeks. ) Duration of Symptoms: Reports: Week(s): (two), Getting Worse Location: Reports: Generalized Quality: Reports: Other (nausea, vomiting, lack of appetite) Severity: Moderate Improves with: Reports: None Worsens with: Reports: None Associated Symptoms: Reports: Loss of Appetite, Nausea/Vomiting, Weakness (recent falls x 2) - Related Data Allergies/Adverse Reactions: Allergies Allergy/AdvReac Type Severity Reaction Status Date / Time albuterol Allergy Cannot Verified 07/16/20 16:57 Remember codeine Allergy Swelling Verified 07/16/20 16:57 fish oil Allergy Rash Verified 07/16/20 16:57 Iodinated Contrast Media Allergy Hives Verified 07/16/20 16:57 iodine Allergy Swelling Verified 07/16/20 16:57 lidocaine Allergy Rash Verified 07/16/20 16:57 oxycodone Allergy Hallucinati Verified 07/16/20 16:57 ons povidone-iodine Allergy Swelling Verified 07/16/20 16:57 [From Betadine] soap [From Betadine] Allergy Swelling Verified 07/16/20 16:57 valacyclovir HCl Allergy Rash Verified 07/16/20 16:57 [From Valtrex] fentanyl AdvReac Nausea Verified 07/16/20 16:57 morphine AdvReac Hallucinati Verified 07/16/20 16:57 ons shrimp flavor Allergy Rash Uncoded 07/16/20 16:57 vitamins- minerals Allergy Nausea Uncoded 07/16/20 16:57 Home Medications: Home Meds Acetaminophen [Pain Reliever] 500 mg PO BID PRN 10/15/13 [History] Escitalopram [Lexapro] 10 mg PO DAILY 10/15/13 [History] Pravastatin Sodium 20 mg PO BEDTIME 10/15/13 [History] Topiramate 150 mg PO DAILY 10/15/13 [History] Montelukast [Singulair] 10 mg PO BEDTIME 10/28/14 [History] Triamcinolone Acetonide [Kenalog 0.1% Crm] 1 applic TOP BID PRN 12/04/14 [History] Fluticasone Propionate [Flonase Allergy Relief] 2 spray SHANTEL DAILY 07/30/19 [History] Cyclobenzaprine [Flexeril] 10 mg PO TID PRN 01/07/20 [History] Levothyroxine Sodium [Synthroid] 75 mcg PO DAILY 01/07/20 [History] Pantoprazole Sodium [Protonix] 40 mg PO DAILY 01/07/20 [History] Budesonide [Budesonide EC] 9 mg PO DAILY 05/20/20 [History] Carbidopa/Levodopa [Sinemet 25-100 mg Tablet] 1 tab PO QID 05/20/20 [History] Potassium Chloride [Klor-Con M20] 20 meq PO BID 05/20/20 [History] allopurinoL [Zyloprim] 150 mg PO DAILY 05/20/20 [History] Carboxymethylcellulose Sodium [Artificial Tears] 1 drop EYEBOTH DAILY 07/07/20 [History] Carbidopa/Levodopa [Carbidopa-Levo ER 25-100] 1 tab PO BEDTIME 07/09/20 [History] Fluconazole [Diflucan] 200 mg PO DAILY 07/09/20 [History] Ondansetron [Ondansetron ODT] 4 mg PO ASDIRECTED 07/16/20 [History] Past Medical History HEENT History: Reports: Hard of Hearing, Other (See Below) Other HEENT History: SORE LEFT NARE, wears glasses Cardiovascular History: Reports: Arrhythmia, High Cholesterol, Hypertension, Other (See Below) Other Cardiovascular History: LOW HEART RATE Respiratory History: Reports: Asthma, COPD, SOB Gastrointestinal History: Reports: Cholelithiasis, Chronic Diarrhea, Diverticulosis, Irritable Bowel Syndrome, Other (See Below) Other Gastrointestinal History: dumping syndrome, colitis Genitourinary History: Reports: Pyelonephritis, UTI, Recurrent [employer] SPECIALIST History: Reports: Musculoskeletal History: Reports: Fracture, Other (See Below) Other Musculoskeletal History: H/O BROKEN TAILBONE AND LEFT LOWER LEG FX Neurological History: Reports: Other (See Below) Other Neuro History: tremors, Parkinson's disease Psychiatric History: Reports: Anxiety, Depression Endocrine/Metabolic History: Reports: Hypothyroidism, Other (See Below) Other Endocrine/Metabolic History: thyroid disease Oncologic (Cancer) History: Reports: Uterine Dermatologic History: Reports: Other (See Below) Other Dermatologic History: rash - Infectious Disease History Infectious Disease History: Reports: Chicken Pox, Measles, Mumps, Shingles - Past Surgical History HEENT Surgical History: Reports: Cataract Surgery Other Cardiovascular Surgeries/Procedures: holter monitor placed in [place] today 10/11/2019, loop recorder (heart monitor) GI Surgical History: Reports: Cholecystectomy, Colonoscopy, EGD, Hernia Repair/Other, Other (See Below) Other GI Surgeries/Procedures: bile duct removed. egd dilation Jul 09 2020 Female Surgical History: Reports: Hysterectomy Social & Family History - Family History Family Medical History: No Pertinent Family History - Tobacco Use Tobacco Use Status *Q: Never Tobacco User - Caffeine Use Caffeine Use: Reports: None Other Caffeine Use: one cappucino in the morning - Recreational Drug Use Recreational Drug Use: No - Living Situation & Occupation Living situation: Reports: , with Family (lives with Son Kyler and family.) H&P Review of Systems - Review of Systems: Review Of Systems: See Below General: Reports: Malaise, Weakness, Decreased Appetite (minimal intake for the past two days) HEENT: Reports: Glasses, Other (hard of hearing) Pulmonary: Reports: Shortness of Breath, Other (history of Covid 19 infection on April 24. 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 dentures present) Neck: Supple, Trachea Midline Lungs: Clear to Auscultation, Normal Respiratory Effort Cardiovascular: Normal S1, Normal S2, Irregular Rhythm GI/Abdominal Exam: Normal Bowel Sounds, Soft, Non-Tender (Female) Exam: Deferred Rectal (Female) Exam: Deferred Back Exam: Normal Inspection Extremities: Pedal Edema, Slow Capillary Refill Peripheral Pulses: 2+: Radial (L), Radial (R) Skin: Warm, Dry, Intact Neurological: Reflexes Equal Bilateral, Strength Equal Bilateral Neuro Extensive - Mental Status: Alert, Normal Mood/Affect, Normal Cognition, Memory Intact Neuro Extensive - Motor, Sensory, Reflexes: CN II-XII Intact, Normal Gait, Normal Reflexes Psychiatric: Alert, Normal Affect, Normal Mood - Patient Data Lab Results Last 24 hrs: Laboratory Results - last 24 hr 07/16/20 07/16/20 07/16/20 Range/Units 16:55 16:55 17:50 WBC 8.7 (4.5-11.0) K/uL RBC 3.62 (3.30-5.50) M/uL Hgb 11.1 L (12.0-15.0) g/dL Hct 33.3 L (36.0-48.0) % MCV 92 (80-98) fL MCH 31 (27-31) pg MCHC 33 (32-36) % Plt Count 244 (150-400) K/uL Neut % (Auto) 74 H (36-66) % Lymph % (Auto) 14 L (24-44) % Evans % (Auto) 10 H (2-6) % Eos % (Auto) 1 L (2-4) % Baso % (Auto) 0 (0-1) % Sodium 132 L (140-148) mmol/L Potassium 3.7 (3.6-5.2) mmol/L Chloride 99 L (100-108) mmol/L Carbon Dioxide 22 (21-32) mmol/L Anion Gap 14.7 H (5.0-14.0) mmol/L BUN 12 (7-18) mg/dL Creatinine 1.0 (0.6-1.0) mg/dL Est Cr Clr Drug Dosing 38.36 mL/min Estimated GFR (MDRD) 53 L (>60) Glucose 96 (74-106) mg/dL Calcium 8.7 (8.5-10.1) mg/dL Total Bilirubin 0.7 (0.2-1.0) mg/dL AST 6 L (15-37) U/L ALT 9 L (12-78) U/L Alkaline Phosphatase 87 (46-116) U/L Total Protein 6.1 L (6.4-8.2) g/dL Albumin 3.2 L (3.4-5.0) g/dL Globulin 2.9 (2.3-3.5) g/dL Albumin/Globulin Ratio 1.1 L (1.2-2.2) Urine Color Yellow (YELLOW) Urine Appearance Slightly cloudy A (CLEAR) Urine pH 6.5 (5.0-8.0) Ur Specific [place] 1.025 (1.008-1.030) Urine Protein 30 H (NEGATIVE) mg/dL Urine Glucose (UA) Negative (NEGATIVE) mg/dL Urine Ketones 15 H (NEGATIVE) mg/dL Urine Occult Blood Negative (NEGATIVE) Urine Nitrite Positive H (NEGATIVE) Urine Bilirubin Small H (NEGATIVE) Urine Urobilinogen 2.0 H (0.2-1.0) EU/dL Ur Leukocyte Esterase Moderate H (NEGATIVE) Urine RBC 0-5 (0-5) Urine WBC Semi-packed H (0-5) Ur Epithelial Cells Moderate Amorphous Sediment Not seen Urine Bacteria Many Urine Mucus Not seen Result Diagrams: 07/16/20 16:55 07/16/20 16:55 Sepsis Event Note - Evaluation Sepsis Screening Result: No Definite Risk - Focused Exam Vital Signs: Vital Signs Temp Pulse Resp BP Pulse Ox 07/16/20 17:43 62 134/59 L 98 07/16/20 16:53 36.4 C 67 16 128/60 98 07/16/20 16:33 36.4 C 67 16 128/60 98 - Problem List (1) Urinary tract infection in female SNOMED Code(s): 72053517, 080605734 ICD Code: N39.0 - URINARY TRACT INFECTION, SITE NOT SPECIFIED Status: Acute Priority: High Current Visit: Yes (2) Dehydration SNOMED Code(s): 39207981 ICD Code: E86.0 - DEHYDRATION Status: Acute Priority: High Current Visit: Yes (3) Nausea and vomiting SNOMED Code(s): 70434044 ICD Code: R11.2 - NAUSEA WITH VOMITING, UNSPECIFIED Status: Acute Priority: High Current Visit: Yes Qualifiers: Vomiting type: bilious vomiting Qualified Code(s): R11.14 - Bilious vomiting (4) Parkinsons disease SNOMED Code(s): 27408968 ICD Code: G20 - PARKINSON'S DISEASE Status: Chronic Priority: Low Current Visit: Yes Problem List Initiated/Reviewed/Updated: Yes Orders Last 24hrs: Active Orders 24 hr Category Date Time Status Patient Status Manage Transfer [TRANSFER] Routine ADT 07/16/20 18:48 Active EKG Documentation Completion [RC] ASDIRECTED Care 07/16/20 16:42 Active Chest 1V Frontal [CR] Stat Exams 07/16/20 18:40 Ordered Sodium Chloride 0.9% [Normal Saline] 1,000 ml Med 07/16/20 18:30 Active IV .BOLUS Sodium Chloride 0.9% [Saline Flush] Med 07/16/20 16:42 Active 10 ml FLUSH ASDIRECTED PRN cefTRIAXone [Rocephin] 1 gm Med 07/16/20 19:00 Active Sodium Chloride 0.9% [Normal Saline] 50 ml IV Q24H Saline Lock Insert [OM.PC] Routine Oth 07/16/20 16:42 Ordered EKG 12 Lead [EK] Routine Ther 07/16/20 16:42 Ordered Medication Orders Sodium Chloride (Normal Saline) 1,000 mls @ 500 mls/hr IV .BOLUS ONE Stop: 07/16/20 20:29 Last Admin: 07/16/20 18:48 Dose: 500 mls/hr Documented by: PREILOR Ceftriaxone Sodium 1 gm/ (Sodium Chloride) 50 mls @ 100 mls/hr IV Q24H ROSELIA Last Admin: 07/16/20 18:49 Dose: 100 mls/hr Documented by: PREILOR Sodium Chloride (Saline Flush) 10 ml FLUSH ASDIRECTED PRN PRN Reason: Keep Vein Open Last Admin: 07/16/20 17:31 Dose: 10 ml Documented by: PREILOR Assessment/Plan Comment:: ASSESSMENT AND PLAN OF CARE Urinary Tract Infection with nausea, vomiting and dehydration. This is 85 year old female who present to the ER with her Son Kyler ([facility] [employer]), who reports his Mom has not been able to eat the past two days. Has nausea and vomiting with any attempts to eat food, she has been drinking sips of water. She did have a EGD on 07/09/2020 - and was found to have a food bolus which was removed and slight dilation by Dr. Mota, Surgeon. She is here because she is so weak from lack of nutrition. ER workup includes labs, chest xray and CT abdomen-pelvis. Urine with micro shows a urinary tract infection. She was given IV fluids and IV Rocephin in ER and felt a little better. -consider consult with Dr. Mota -IV Rocephin 1 gram every 24 hours -IV Fluids Normal Saline 100ml/hr -urine culture pending -am labs CBC, BMP Parkinson disease -continue outpatient medications MAINTENANCE ISSUES -DVT prophylaxis- SCD -GI prophylaxis; PPI therapy -Krishnamurthy catheter; not indicated -Nutrition; clear liquids advance as tolerated diet -Nicotine dependence; not required -consult to PT -consult to OT CODE STATUS-DNR/DNI ADMISSION STATUS-patient will be admitted to inpatient status, expect at least a 2 night hospital stay for evaluation and management of problems as outlined above. At the time of this admission I do not reasonably expected evaluation and management of this problem will require more than a 96 hour hospital stay. DISPOSITION-anticipate discharge to home with family after the hospital stay. PRIMARY CARE PROVIDER- Dr. Wright, [facility] HOSPITALIST - Dr. Mccormick - Mortality Measure Prognosis:: Good - Mortality Measure Prognosis:: Good
[2020-07-16] MEDS ORDERED: Sodium Chloride 0.9% 1,000 ML IV SCH (20:46)
[2020-07-16] MEDS ORDERED: Triamcinolone Acetonide 0.1% Crm 80 GM Tube TOP PRN (20:46)
[2020-07-16] MEDS ORDERED: Albuterol 0.083% 2.5 MG/3 ML Neb Soln NEB PRN (20:46)
[2020-07-16] MEDS ORDERED: Cyclobenzaprine 10 MG Tab PO PRN (20:46)
[2020-07-16] MEDS ORDERED: LORazepam 2 MG/ML SDV IV PRN (20:46)
[2020-07-16] MEDS ORDERED: Acetaminophen 500 MG Tab PO PRN (20:46)
[2020-07-16] MEDS ORDERED: Montelukast 10 MG Tab PO SCH (21:00)
[2020-07-16] MEDS ORDERED: Pravastatin 20 MG Tab PO SCH (21:00)
[2020-07-16] MEDS: Potassium Chloride 20 MEQ Tab.ER PO SCH (21:43)
[2020-07-16] MEDS: Carbidopa/Levodopa 25-100 MG Tab PO SCH ×2 (21:44→22:11)
[2020-07-16] MEDS ORDERED: Carbidopa/Levodopa 25-100 MG Tab ONE (22:09)
[2020-07-17] MEDS: Ondansetron 4 MG Tab.DIS PO PRN ×2 (00:27→07:25)
[2020-07-17] MEDS ORDERED: Pantoprazole 40 MG Tab.CR PO SCH (07:30)
[2020-07-17] MEDS ORDERED: Triamcinolone Acetonide 0.1% Crm 15 GM Tube TOP PRN (07:43)
[2020-07-17] MEDS ORDERED: Allopurinol 100 MG Tab PO SCH (09:00)
[2020-07-17] MEDS ORDERED: Topiramate 100 MG Tab PO SCH ×2 (09:00)
[2020-07-17] MEDS ORDERED: Levothyroxine 25 MCG Tab PO SCH (09:00)
[2020-07-17] MEDS ORDERED: BUDESONIDE 9 MG PO SCH (09:00)
[2020-07-17] MEDS ORDERED: Topiramate 25 MG Tab PO SCH (09:00)
[2020-07-17] MEDS ORDERED: Fluticasone Propionate Nasal Spray 16 GM Bottle NAS SCH (09:00)
[2020-07-17] MEDS ORDERED: Fluconazole 100 MG Tab PO SCH (09:00)
[2020-07-17] MEDS ORDERED: Escitalopram 10 MG Tab PO SCH (09:00)
--- NOTE | 2020-07-17 10:17 | CR ---
CHEST: Portable to 04/24/2021 at 7:10 PM CLINICAL HISTORY:Dyspnea COMPARISON:2019 FINDINGS: Heart size and pulmonary vascularity are normal. There are atherosclerotic changes in the aorta.. There is some minimal some patchy streaky density in both lung bases in a predominantly interstitial pattern. Impression: Prominent interstitial markings in both lung bases suggests a superimposed pneumonitis. Interstitial edema is less likely
[2020-07-17] MEDS: Fluticasone Propionate Nasal Spray 16 GM Bottle NASBOTH SCH (10:18)
[2020-07-17] MEDS: Carbidopa/Levodopa 25-100 MG Tab PO SCH ×3 (10:18→14:45)
[2020-07-17] MEDS: Potassium Chloride 20 MEQ Tab.ER PO SCH (10:19)
[2020-07-17] MEDS: Hypromellose 0.3% Ophth Soln 15 ML Bottle EYEBOTH SCH (10:19)
--- NOTE | 2020-07-17 12:09 | PCM.PN ---
- General Info Date of Service: 07/17/20 Subjective Update: No acute events overnight. No fevers. Still reports difficulty with swallowing and feels like after she swallows the food is going to come back up. No coughing or choking with swallowing. No fevers overnight. Vomiting and diarrhea seem better. Urine culture pending but is growing a gram-negative meka at this point. She did have a bedside evaluation with speech pathology and there was no evidence for aspiration based on this evaluation. Functional Status: Reports: Pain Controlled. Denies: Tolerating Diet - Review of Systems General: Denies: Fever Gastrointestinal: Reports: Difficulty Swallowing - Patient Data Vitals - Most Recent: Last Vital Signs Temp 35.2 C L 07/17/20 10:50 Pulse 56 L 07/17/20 10:50 Resp 18 07/17/20 10:50 BP 120/45 L 07/17/20 10:50 Pulse Ox 100 07/17/20 10:50 Weight - Most Recent: 69.944 kg I&O - Last 24 Hours: Intake & Output 07/16/20 07/17/20 07/17/20 22:59 06:59 14:59 Intake Total 1077 Output Total 150 300 Balance 927 -300 Lab Results Last 24 Hours: Laboratory Results - last 24 hr 07/16/20 07/16/20 07/16/20 Range/Units 16:55 16:55 17:50 WBC 8.7 (4.5-11.0) K/uL RBC 3.62 (3.30-5.50) M/uL Hgb 11.1 L (12.0-15.0) g/dL Hct 33.3 L (36.0-48.0) % MCV 92 (80-98) fL MCH 31 (27-31) pg MCHC 33 (32-36) % Plt Count 244 (150-400) K/uL Neut % (Auto) 74 H (36-66) % Lymph % (Auto) 14 L (24-44) % [place] % (Auto) 10 H (2-6) % Eos % (Auto) 1 L (2-4) % Baso % (Auto) 0 (0-1) % Sodium 132 L (140-148) mmol/L Potassium 3.7 (3.6-5.2) mmol/L Chloride 99 L (100-108) mmol/L Carbon Dioxide 22 (21-32) mmol/L Anion Gap 14.7 H (5.0-14.0) mmol/L BUN 12 (7-18) mg/dL Creatinine 1.0 (0.6-1.0) mg/dL Est Cr Clr Drug Dosing 38.36 mL/min Estimated GFR (MDRD) 53 L (>60) Glucose 96 (74-106) mg/dL Calcium 8.7 (8.5-10.1) mg/dL Total Bilirubin 0.7 (0.2-1.0) mg/dL AST 6 L (15-37) U/L ALT 9 L (12-78) U/L Alkaline Phosphatase 87 (46-116) U/L Total Protein 6.1 L (6.4-8.2) g/dL Albumin 3.2 L (3.4-5.0) g/dL Globulin 2.9 (2.3-3.5) g/dL Albumin/Globulin Ratio 1.1 L (1.2-2.2) Urine Color Yellow (YELLOW) Urine Appearance Slightly cloudy A (CLEAR) Urine pH 6.5 (5.0-8.0) Ur Specific [place] 1.025 (1.008-1.030) Urine Protein 30 H (NEGATIVE) mg/dL Urine Glucose (UA) Negative (NEGATIVE) mg/dL Urine Ketones 15 H (NEGATIVE) mg/dL Urine Occult Blood Negative (NEGATIVE) Urine Nitrite Positive H (NEGATIVE) Urine Bilirubin Small H (NEGATIVE) Urine Urobilinogen 2.0 H (0.2-1.0) EU/dL Ur Leukocyte Esterase Moderate H (NEGATIVE) Urine RBC 0-5 (0-5) Urine WBC Semi-packed H (0-5) Ur Epithelial Cells Moderate Amorphous Sediment Not seen Urine Bacteria Many Urine Mucus Not seen 07/17/20 07/17/20 Range/Units 05:00 05:00 WBC 7.3 (4.5-11.0) K/uL RBC 3.27 L (3.30-5.50) M/uL Hgb 10.0 L (12.0-15.0) g/dL Hct 30.3 L (36.0-48.0) % MCV 93 (80-98) fL MCH 31 (27-31) pg MCHC 33 (32-36) % Plt Count 210 (150-400) K/uL Neut % (Auto) 73 H (36-66) % Lymph % (Auto) 16 L (24-44) % [place] % (Auto) 9 H (2-6) % Eos % (Auto) 2 (2-4) % Baso % (Auto) 0 (0-1) % Sodium 135 L (140-148) mmol/L Potassium 4.0 (3.6-5.2) mmol/L Chloride 102 (100-108) mmol/L Carbon Dioxide 24 (21-32) mmol/L Anion Gap 13.0 (5.0-14.0) mmol/L BUN 10 (7-18) mg/dL Creatinine 0.9 (0.6-1.0) mg/dL Est Cr Clr Drug Dosing 42.62 mL/min Estimated GFR (MDRD) 60 (>60) Glucose 78 (74-106) mg/dL Calcium 8.2 L (8.5-10.1) mg/dL Total Bilirubin (0.2-1.0) mg/dL AST (15-37) U/L ALT (12-78) U/L Alkaline Phosphatase (46-116) U/L Total Protein (6.4-8.2) g/dL Albumin (3.4-5.0) g/dL Globulin (2.3-3.5) g/dL Albumin/Globulin Ratio (1.2-2.2) Urine Color (YELLOW) Urine Appearance (CLEAR) Urine pH (5.0-8.0) Ur Specific [place] (1.008-1.030) Urine Protein (NEGATIVE) mg/dL Urine Glucose (UA) (NEGATIVE) mg/dL Urine Ketones (NEGATIVE) mg/dL Urine Occult Blood (NEGATIVE) Urine Nitrite (NEGATIVE) Urine Bilirubin (NEGATIVE) Urine Urobilinogen (0.2-1.0) EU/dL Ur Leukocyte Esterase (NEGATIVE) Urine RBC (0-5) Urine WBC (0-5) Ur Epithelial Cells Amorphous Sediment Urine Bacteria Urine Mucus Chele Results Last 24 Hours: Microbiology 07/16/20 19:00 Urine Culture - Preliminary Urine, Clean Catch Med Orders - Current: Current Medications Acetaminophen (Tylenol Extra Strength) 500 mg PO BID PRN PRN Reason: Pain (moderate 4-6) Albuterol (Proventil Neb Soln) 2.5 mg NEB Q4H PRN PRN Reason: Shortness Of Breath/wheezing Allopurinol (Zyloprim) 150 mg PO DAILY [facility] Last Admin: 07/17/20 10:20 Dose: 150 mg Documented by: Artificial Tears (Genteal Mild To Moderate Ophth Soln) 0 ml EYEBOTH DAILY [facility] Last Admin: 07/17/20 10:19 Dose: 1 drop Documented by: Carbidopa/Levodopa (Sinemet 25-100 Mg) 1 tab PO 0800,1100,1400,1800 [facility] Last Admin: 07/17/20 10:18 Dose: 1 tab Documented by: Cyclobenzaprine HCl (Flexeril) 10 mg PO TID PRN PRN Reason: Muscle Spasm Escitalopram Oxalate (Lexapro) 10 mg PO DAILY [facility] Last Admin: 07/17/20 10:19 Dose: 10 mg Documented by: Fluticasone Propionate (Flonase) 0 gm NASBOTH DAILY [facility] Last Admin: 07/17/20 10:18 Dose: 2 spray Documented by: Ceftriaxone Sodium 1 gm/ (Sodium Chloride) 50 mls @ 100 mls/hr IV Q24H [facility] Last Admin: 07/16/20 18:49 Dose: 100 mls/hr Documented by: Levothyroxine Sodium (Levothyroxine) 75 mcg PO DAILY@0730 [facility] Last Admin: 07/17/20 10:19 Dose: 75 mcg Documented by: Lorazepam (Ativan) 0.5 - 1 mg IV Q6H PRN PRN Reason: Nausea/Vomiting Montelukast Sodium (Singulair) 10 mg PO BEDTIME [facility] Last Admin: 07/16/20 21:43 Dose: 10 mg Documented by: Carbidopa/Levodopa (Er 25-100mg Ptom) 0 tab PO BEDTIME [facility] Ondansetron HCl (Zofran Odt) 4 mg PO Q6H PRN PRN Reason: Nausea able to take PO Last Admin: 07/17/20 07:25 Dose: 4 mg Documented by: Pantoprazole Sodium (Protonix) 40 mg PO ACBREAKFAST [facility] Last Admin: 07/17/20 10:18 Dose: 40 mg Documented by: Pravastatin Sodium (Pravachol) 20 mg PO BEDTIME [facility] Last Admin: 07/16/20 21:43 Dose: 20 mg Documented by: Sodium Chloride (Saline Flush) 10 ml FLUSH ASDIRECTED PRN PRN Reason: Keep Vein Open Last Admin: 07/16/20 17:31 Dose: 10 ml Documented by: Topiramate (Topamax) 100 mg PO DAILY [facility] Last Admin: 07/17/20 10:20 Dose: 100 mg Documented by: Topiramate (Topamax) 50 mg PO DAILY [facility] Last Admin: 07/17/20 10:19 Dose: 50 mg Documented by: Triamcinolone Acetonide (Triamcinolone Acetonide 0.1% Crm) 0 gm TOP BID PRN PRN Reason: Rash Discontinued Medications Carbidopa/Levodopa (Sinemet 25-100 Mg) 1 tab PO QID [facility] Last Admin: 07/16/20 22:11 Dose: 1 tab Documented by: Carbidopa/Levodopa (Sinemet 25-100 Mg) Confirm Administered Dose 1 tab .ROUTE .STK-MED ONE Stop: 07/16/20 22:10 Last Admin: 07/17/20 10:18 Dose: Not Given Documented by: Fluconazole (Diflucan) 200 mg PO DAILY [facility] Sodium Chloride (Normal Saline) 1,000 mls @ 500 mls/hr IV .BOLUS ONE Stop: 07/16/20 20:29 Last Admin: 07/16/20 18:48 Dose: 500 mls/hr Documented by: Sodium Chloride (Normal Saline) 1,000 mls @ 100 mls/hr IV ASDIRECTED [facility] Last Admin: 07/17/20 03:10 Dose: 100 mls/hr Documented by: Potassium Chloride (Klor-Con M20) 20 meq PO BID [facility] Last Admin: 07/17/20 10:19 Dose: 20 meq Documented by: - Exam Quality Assessment: No: Supplemental Oxygen General: Alert, Oriented, Cooperative, No Acute Distress Lungs: Normal Respiratory Effort Cardiovascular: Regular Rhythm GI/Abdominal Exam: Soft, No Distention Skin: Warm, Dry Psy/Mental Status: Alert, Normal Affect Sepsis Event Note - Evaluation Sepsis Screening Result: No Definite Risk - Focused Exam Vital Signs: Vital Signs Temp Temp Pulse Resp BP BP Pulse Ox 07/17/20 10:50 35.2 C L 56 L 18 120/45 L 100 07/17/20 10:16 35.6 C L 73 18 110/57 L 98 07/17/20 09:39 76 07/17/20 07:18 35.1 C L 88 18 124/47 L 98 07/17/20 03:10 35.1 C L 58 L 16 124/78 98 07/17/20 00:22 36.4 C 57 L 16 140/61 100 - Problem List Review Problem List Initiated/Reviewed/Updated: Yes - My Orders Last 24 Hours: My Active Orders 07/16/20 18:48 Admission Status [Patient Status] [ADT] Routine 07/17/20 09:25 Discontinue Telemetry Monitoring [Cardiac Monitoring Discontinue] [RC] Click to Edit 07/17/20 11:29 Consult to Speech Language Pathology [DIRECTOR CONSUMER AFFAIRS Evaluation and Treatment] [CONS] Routine 07/17/20 12:07 Esophogram [CR] Routine 07/17/20 12:08 Convert IV to Saline Lock [OM.PC] Routine - Plan Plan:: ASSESSMENT AND PLAN - Urinary Tract Infection-manifestations of nausea and diarrhea. Vitals are stable. Urine culture growing a gram-negative meka with identification pending. -Continue ceftriaxone -Follow-up urine culture -Physical and occupational therapy for strengthening Possible esophageal dysphagia-difficulty over the past 2 weeks. Did pass bedside evaluation with no evidence for aspiration. -Esophagram Parkinson disease-stable other than the possible esophageal dysphagia as discussed above. -continue outpatient medications MAINTENANCE ISSUES -DVT prophylaxis- SCD -GI prophylaxis; PPI therapy -Nutrition; clear liquids advance as tolerated diet CODE STATUS-DNR/DNI ADMISSION STATUS-observation DISPOSITION-anticipate discharge to home with family after the hospital stay. PRIMARY CARE PROVIDER- Dr. Wright, [facility] Juwan Mccormick MD
[2020-07-17] MEDS ORDERED: Barium Sulfate 98% Powder for Susp 340 GM Bottle PO PRN (12:43)
[2020-07-17] MEDS ORDERED: Citric Acid/Simethicone/Sodium Bicarbonate Granules 4 GM Packet PO ONE (13:00)
--- NOTE | 2020-07-17 13:32 | CR ---
Esophogram CLINICAL HISTORY: Esophageal dysphagia FINDINGS: Patient swallowed thin barium without difficulty. There is an approximately 2 x 3 cm anchored diverticula extending posteriorly to the left. This also causes some extrinsic compression on the proximal esophagus the cervical esophagus had a normal mucosal pattern. There is a large hiatal hernia with some narrowing at the diaphragmatic hiatus. Patient appears to have had a prior Kaitlynn procedure. No reflux is identified IMPRESSION: 2 x 3 cm Zenker's diverticula impresses upon the posterior esophagus Large hiatal hernia. It appears the patient has had a previous Kaitlynn procedure No obstruction or reflux seen
[2020-07-17] MEDS: Carbidopa/Levodopa 25-100 MG **PTOM PO SCH (17:34)
[2020-07-17] MEDS: cefTRIAXone 1 GM in Sodium Chloride 0.9% 50 ML IV SCH (18:19)
[2020-07-17] MEDS ORDERED: Montelukast 10 MG **PTOM PO SCH (21:00)
[2020-07-17] MEDS ORDERED: PRAVASTATIN 20 MG PO SCH (21:00)
[2020-07-17] MEDS: CARBIDOPA PO SCH (21:08)
[2020-07-17] MEDS: LEVODOPA PO SCH (21:08)
[2020-07-18] MEDS ORDERED: LEVOTHYROXINE 75 MCG PO SCH (07:30)
[2020-07-18] MEDS: Carbidopa/Levodopa 25-100 MG **PTOM PO SCH ×2 (07:47→10:30)
[2020-07-18] MEDS: Ondansetron 4 MG Tab.DIS PO PRN ×2 (07:50→17:43)
[2020-07-18] MEDS ORDERED: ALLOPURINOL 300 MG PO SCH (09:00)
[2020-07-18] MEDS ORDERED: TOPIRAMATE 100 MG PO SCH (09:00)
[2020-07-18] MEDS ORDERED: ESCITALOPRAM 10 MG PO SCH (09:00)
[2020-07-18] MEDS: Hypromellose 0.3% Ophth Soln 15 ML Bottle EYEBOTH SCH (09:41)
[2020-07-18] MEDS: Fluticasone Propionate Nasal Spray 16 GM Bottle NASBOTH SCH (09:41)
--- NOTE | 2020-07-18 11:17 | PCM.PN ---
- General Info Date of Service: 07/18/20 Subjective Update: No acute events overnight. She is tolerating small amounts of clear liquids. No significant vomiting or diarrhea. No fevers. No significant abdominal pain. Patient did have a chance to talk to family members and also had some time to think for herself about her wishes regarding further management of her severe esophageal dysmotility in the setting of Parkinson's disease. She is interested in having a feeding tube placed and receiving tube feeds to maintain her nutrition. - Review of Systems General: Denies: Fever Gastrointestinal: Denies: Diarrhea, Vomiting - Patient Data Vitals - Most Recent: Last Vital Signs Temp 35.2 C L 07/18/20 10:14 Pulse 54 L 07/18/20 10:14 Resp 18 07/18/20 10:14 BP 124/53 L 07/18/20 10:14 Pulse Ox 95 07/18/20 10:14 Weight - Most Recent: 60.6 kg I&O - Last 24 Hours: Intake & Output 07/17/20 07/18/20 07/18/20 22:59 06:59 14:59 Output Total 100 100 Balance -100 -100 Chele Results Last 24 Hours: Microbiology 07/16/20 19:00 Urine Culture - Final Urine, Clean Catch Klebsiella Pneumonia Ss Pneumo Med Orders - Current: Current Medications Acetaminophen (Tylenol Extra Strength) 500 mg PO BID PRN PRN Reason: Pain (moderate 4-6) Albuterol (Proventil Neb Soln) 2.5 mg NEB Q4H PRN PRN Reason: Shortness Of Breath/wheezing Artificial Tears (Genteal Mild To Moderate Ophth Soln) 0 ml EYEBOTH DAILY [facility] Last Admin: 07/18/20 09:41 Dose: 2 drop Documented by: Carbidopa/Levodopa (Sinemet 25-100 Mg) 1 tab PO 0800,1100,1400,1800 [facility] Last Admin: 07/18/20 07:47 Dose: 1 tab Documented by: Cyclobenzaprine HCl (Flexeril) 10 mg PO TID PRN PRN Reason: Muscle Spasm Escitalopram Oxalate (Lexapro) 10 mg PO DAILY [facility] Last Admin: 07/18/20 09:41 Dose: 10 mg Documented by: Fluticasone Propionate (Flonase) 0 gm NASBOTH DAILY [facility] Last Admin: 07/18/20 09:41 Dose: 2 spray Documented by: Ceftriaxone Sodium 1 gm/ (Sodium Chloride) 50 mls @ 100 mls/hr IV Q24H [facility] Last Admin: 07/17/20 18:19 Dose: 100 mls/hr Documented by: Lorazepam (Ativan) 0.5 - 1 mg IV Q6H PRN PRN Reason: Nausea/Vomiting Montelukast Sodium (Singulair) 10 mg PO BEDTIME [facility] Last Admin: 07/17/20 21:09 Dose: 10 mg Documented by: Carbidopa/Levodopa (Er 25-100mg Ptom) 0 tab PO BEDTIME [facility] Last Admin: 07/17/20 21:08 Dose: 1 tab Documented by: Ondansetron HCl (Zofran Odt) 4 mg PO Q6H PRN PRN Reason: Nausea able to take PO Last Admin: 07/18/20 07:50 Dose: 4 mg Documented by: Pantoprazole Sodium (Protonix) 40 mg PO ACBREAKFAST [facility] Last Admin: 07/18/20 07:46 Dose: 40 mg Documented by: Allopurinol 300mg (Ptom) 0 each PO DAILY [facility] Last Admin: 07/18/20 09:41 Dose: 1 each Documented by: Levothyroxine 75mcg (Ptom) 0 each PO DAILY@0730 [facility] Last Admin: 07/18/20 07:46 Dose: 1 each Documented by: Pravastatin Sodium (Pravachol) 20 mg PO BEDTIME [facility] Last Admin: 07/17/20 21:09 Dose: 20 mg Documented by: Sodium Chloride (Saline Flush) 10 ml FLUSH ASDIRECTED PRN PRN Reason: Keep Vein Open Last Admin: 07/16/20 17:31 Dose: 10 ml Documented by: Topiramate (Topamax) 150 mg PO DAILY [facility] Last Admin: 07/18/20 09:40 Dose: 150 mg Documented by: Triamcinolone Acetonide (Triamcinolone Acetonide 0.1% Crm) 0 gm TOP BID PRN PRN Reason: Rash Discontinued Medications Allopurinol (Zyloprim) 150 mg PO DAILY [facility] Last Admin: 07/17/20 10:20 Dose: 150 mg Documented by: Barium Sulfate (E-Z-Hd) 680 gm PO . DIRECTED PRN PRN Reason: RADIOLOGY EXAM Stop: 07/17/20 14:00 Last Admin: 07/17/20 13:09 Dose: 340 gm Documented by: Carbidopa/Levodopa (Sinemet 25-100 Mg) 1 tab PO QID [facility] Last Admin: 07/16/20 22:11 Dose: 1 tab Documented by: Carbidopa/Levodopa (Sinemet 25-100 Mg) 1 tab PO 0800,1100,1400,1800 [facility] Last Admin: 07/17/20 14:45 Dose: 1 tab Documented by: Carbidopa/Levodopa (Sinemet 25-100 Mg) Confirm Administered Dose 1 tab .ROUTE .STK-MED ONE Stop: 07/16/20 22:10 Last Admin: 07/17/20 10:18 Dose: Not Given Documented by: Escitalopram Oxalate (Lexapro) 10 mg PO DAILY [facility] Last Admin: 07/17/20 10:19 Dose: 10 mg Documented by: Fluconazole (Diflucan) 200 mg PO DAILY [facility] Last Admin: 07/17/20 14:51 Dose: Not Given Documented by: Sodium Chloride (Normal Saline) 1,000 mls @ 500 mls/hr IV .BOLUS ONE Stop: 07/16/20 20:29 Last Admin: 07/16/20 18:48 Dose: 500 mls/hr Documented by: Sodium Chloride (Normal Saline) 1,000 mls @ 100 mls/hr IV ASDIRECTED [facility] Last Admin: 07/17/20 03:10 Dose: 100 mls/hr Documented by: Levothyroxine Sodium (Levothyroxine) 75 mcg PO DAILY@0730 [facility] Last Admin: 07/17/20 10:19 Dose: 75 mcg Documented by: Montelukast Sodium (Singulair) 10 mg PO BEDTIME [facility] Last Admin: 07/16/20 21:43 Dose: 10 mg Documented by: Pantoprazole Sodium (Protonix) 40 mg PO ACBREAKFAST [facility] Last Admin: 07/17/20 10:18 Dose: 40 mg Documented by: Potassium Chloride (Klor-Con M20) 20 meq PO BID [facility] Last Admin: 07/17/20 10:19 Dose: 20 meq Documented by: Pravastatin Sodium (Pravachol) 20 mg PO BEDTIME [facility] Last Admin: 07/16/20 21:43 Dose: 20 mg Documented by: Topiramate (Topamax) 100 mg PO DAILY [facility] Last Admin: 07/17/20 10:20 Dose: 100 mg Documented by: Topiramate (Topamax) 50 mg PO DAILY [facility] Last Admin: 07/17/20 10:19 Dose: 50 mg Documented by: - Exam Quality Assessment: No: Supplemental Oxygen General: Alert, Oriented, Cooperative, No Acute Distress Lungs: Normal Respiratory Effort. No: Wheezing GI/Abdominal Exam: Soft, No Distention Extremities: No Pedal Edema. No: Increased Warmth Skin: Warm, Dry Psy/Mental Status: Alert, Normal Affect Sepsis Event Note - Evaluation Sepsis Screening Result: No Definite Risk - Focused Exam Vital Signs: Vital Signs Temp Pulse Resp BP BP Pulse Ox 07/18/20 10:14 35.2 C L 54 L 18 124/53 L 95 07/18/20 07:00 35.2 C L 58 L 18 132/57 L 98 07/18/20 02:44 36.1 C 76 18 127/64 99 - Problem List & Annotations (1) Esophageal dysmotility due to systemic disease SNOMED Code(s): 470894363 Code(s): K22.4 - DYSKINESIA OF ESOPHAGUS Status: Acute Current Visit: Yes - Problem List Review Problem List Initiated/Reviewed/Updated: Yes - My Orders Last 24 Hours: My Active Orders 07/17/20 11:29 Consult to Speech Language Pathology [LOOM CHANGEOVER OPERATOR Evaluation and Treatment] [CONS] Routine 07/17/20 12:08 Convert IV to Saline Lock [OM.PC] Routine 07/18/20 11:13 Notify Provider Consults [RC] ASDIRECTED Consult to Physician [CONS] Routine 07/18/20 11:15 Admission Status [Patient Status] [ADT] Routine 07/19/20 Dinner NPO After Midnight [Nothing per Oral After Midnight Diet] [DIET] 07/20/20 07:00 Consult to Dietary [Consult to Java Scala Developer] [CONS] Routine - Plan Plan:: ASSESSMENT AND PLAN - 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 Significant dysfunction making it difficult to consume anything more than very small quantities of liquids. Unable to take in any solids. She also has a Zenker's diverticulum and a moderate hiatal hernia. She has been losing weight and has been unable to take pills intermittently because of this difficulty. She is interested in a feeding tube for nutritional management. -Consult with Dr. Mota, anticipate feeding tube placement on Monday -Continue clear liquids and IV fluids as needed to maintain hydration -Supplement electrolytes as indicated -Dietary consult Monday for tube feed recommendations Urinary Tract Infection-manifestations of nausea and diarrhea. Vitals are stable. Urine culture grew out a Klebsiella that is resistant to a fair number of antibiotics but is sensitive to ceftriaxone. -Continue ceftriaxone -Physical and occupational therapy for strengthening Parkinson disease-stable other than the possible esophageal dysphagia as discussed above. -continue outpatient medications MAINTENANCE ISSUES -DVT prophylaxis- SCD -GI prophylaxis; PPI -Nutrition; clear liquids CODE STATUS-DNR/DNI ADMISSION STATUS-patient will be transitioned to inpatient status today with severe limitation of oral intake in the need for a feeding tube to be placed to maintain any sort of hydration or nutrition. DISPOSITION-anticipate discharge to home with family after the hospital stay. PRIMARY CARE PROVIDER- Dr. Wright, [facility] Juwan Mccormick MD
[2020-07-18] MEDS: Carbidopa/Levodopa 25-100 MG Tab PO SCH ×2 (13:37→17:04)
[2020-07-18] MEDS: cefTRIAXone 1 GM in Sodium Chloride 0.9% 50 ML IV SCH (18:12)
[2020-07-18] MEDS: LEVODOPA PO SCH (20:25)
[2020-07-18] MEDS: CARBIDOPA PO SCH (20:25)
[2020-07-18] MEDS: Montelukast 10 MG Tab PO SCH (20:26)
[2020-07-18] MEDS: Pravastatin 20 MG Tab PO SCH (20:26)
[2020-07-19] MEDS: Ondansetron 4 MG Tab.DIS PO PRN (07:18)
[2020-07-19] MEDS: Levothyroxine 25 MCG Tab PO SCH (08:56)
[2020-07-19] MEDS: Pantoprazole 40 MG Tab.CR PO SCH (08:56)
[2020-07-19] MEDS: Topiramate 100 MG Tab PO SCH (08:57)
[2020-07-19] MEDS: Escitalopram 10 MG Tab PO SCH (08:57)
[2020-07-19] MEDS: Hypromellose 0.3% Ophth Soln 15 ML Bottle EYEBOTH SCH (08:57)
[2020-07-19] MEDS: Carbidopa/Levodopa 25-100 MG Tab PO SCH ×4 (08:57→17:59)
[2020-07-19] MEDS: Fluticasone Propionate Nasal Spray 16 GM Bottle NASBOTH SCH (08:57)
[2020-07-19] MEDS: Topiramate 25 MG Tab PO SCH (08:58)
[2020-07-19] MEDS: Allopurinol 100 MG Tab PO SCH (08:58)
[2020-07-19] MEDS: D5 1/2 NS w/ 20 mEq/L KCl 1,000 ML IV SCH (10:41)
--- NOTE | 2020-07-19 11:08 | PCM.PN ---
- General Info Date of Service: 07/19/20 Subjective Update: No acute events overnight. Patient does not report any nausea or abdominal pain. She has been tolerating small amounts of clear liquids and small quantities of applesauce with her medications. No fevers. Tolerating antibiotics for her urinary tract infection. Plan is for feeding tube placement tomorrow morning. Functional Status: Reports: Pain Controlled, Tolerating Diet - Review of Systems General: Denies: Fever - Patient Data Vitals - Most Recent: Last Vital Signs Temp 35.1 C L 07/19/20 07:11 Pulse 59 L 07/19/20 07:11 Resp 16 07/19/20 07:11 BP 124/46 L 07/19/20 07:11 Pulse Ox 99 07/19/20 07:11 Weight - Most Recent: 60.6 kg I&O - Last 24 Hours: Intake & Output 07/18/20 07/19/20 07/19/20 22:59 06:59 14:59 Intake Total 170 100 580 Output Total 350 Balance -180 100 580 Chele Results Last 24 Hours: Microbiology 07/16/20 19:00 Urine Culture - Final Urine, Clean Catch Klebsiella Pneumonia Ss Pneumo Med Orders - Current: Current Medications Acetaminophen (Tylenol Extra Strength) 500 mg PO BID PRN PRN Reason: Pain (moderate 4-6) Albuterol (Proventil Neb Soln) 2.5 mg NEB Q4H PRN PRN Reason: Shortness Of Breath/wheezing Allopurinol (Zyloprim) 150 mg PO DAILY [facility] Last Admin: 07/19/20 08:58 Dose: 150 mg Documented by: Artificial Tears (Genteal Mild To Moderate Ophth Soln) 0 ml EYEBOTH DAILY [facility] Last Admin: 07/19/20 08:57 Dose: 2 drop Documented by: Carbidopa/Levodopa (Sinemet 25-100 Mg) 1 tab PO 0800,1100,1400,1800 [facility] Last Admin: 07/19/20 10:42 Dose: 1 tab Documented by: Cyclobenzaprine HCl (Flexeril) 10 mg PO TID PRN PRN Reason: Muscle Spasm Escitalopram Oxalate (Lexapro) 10 mg PO DAILY [facility] Last Admin: 07/19/20 08:57 Dose: 10 mg Documented by: Fluticasone Propionate (Flonase) 0 gm NASBOTH DAILY [facility] Last Admin: 07/19/20 08:57 Dose: 2 spray Documented by: Ceftriaxone Sodium 1 gm/ (Sodium Chloride) 50 mls @ 100 mls/hr IV Q24H [facility] Last Admin: 07/18/20 18:12 Dose: 100 mls/hr Documented by: Potassium Chloride/Dextrose/Sod Cl (D5 1/2 Ns W/ 20 Meq/L Kcl) 1,000 mls @ 80 mls/hr IV ASDIRECTED [facility] Last Admin: 07/19/20 10:41 Dose: 80 mls/hr Documented by: Levothyroxine Sodium (Levothyroxine) 75 mcg PO DAILY@0730 [facility] Last Admin: 07/19/20 08:56 Dose: 75 mcg Documented by: Lorazepam (Ativan) 0.5 - 1 mg IV Q6H PRN PRN Reason: Nausea/Vomiting Montelukast Sodium (Singulair) 10 mg PO BEDTIME [facility] Last Admin: 07/18/20 20:26 Dose: 10 mg Documented by: Carbidopa/Levodopa (Er 25-100mg Ptom) 0 tab PO BEDTIME [facility] Last Admin: 07/18/20 20:25 Dose: 1 tab Documented by: Ondansetron HCl (Zofran Odt) 4 mg PO Q6H PRN PRN Reason: Nausea able to take PO Last Admin: 07/19/20 07:18 Dose: 4 mg Documented by: Pantoprazole Sodium (Protonix) 40 mg PO ACBREAKFAST [facility] Last Admin: 07/19/20 08:56 Dose: 40 mg Documented by: Pravastatin Sodium (Pravachol) 20 mg PO BEDTIME [facility] Last Admin: 07/18/20 20:26 Dose: 20 mg Documented by: Sodium Chloride (Saline Flush) 10 ml FLUSH ASDIRECTED PRN PRN Reason: Keep Vein Open Last Admin: 07/16/20 17:31 Dose: 10 ml Documented by: Topiramate (Topamax) 100 mg PO DAILY [facility] Last Admin: 07/19/20 08:57 Dose: 100 mg Documented by: Topiramate (Topamax) 50 mg PO DAILY [facility] Last Admin: 07/19/20 08:58 Dose: 50 mg Documented by: Triamcinolone Acetonide (Triamcinolone Acetonide 0.1% Crm) 0 gm TOP BID PRN PRN Reason: Rash Discontinued Medications Allopurinol (Zyloprim) 150 mg PO DAILY [facility] Last Admin: 07/17/20 10:20 Dose: 150 mg Documented by: Barium Sulfate (E-Z-Hd) 680 gm PO . DIRECTED PRN PRN Reason: RADIOLOGY EXAM Stop: 07/17/20 14:00 Last Admin: 07/17/20 13:09 Dose: 340 gm Documented by: Carbidopa/Levodopa (Sinemet 25-100 Mg) 1 tab PO QID [facility] Last Admin: 07/16/20 22:11 Dose: 1 tab Documented by: Carbidopa/Levodopa (Sinemet 25-100 Mg) 1 tab PO 0800,1100,1400,1800 [facility] Last Admin: 07/17/20 14:45 Dose: 1 tab Documented by: Carbidopa/Levodopa (Sinemet 25-100 Mg) Confirm Administered Dose 1 tab .ROUTE .STK-MED ONE Stop: 07/16/20 22:10 Last Admin: 07/17/20 10:18 Dose: Not Given Documented by: Carbidopa/Levodopa (Sinemet 25-100 Mg) 1 tab PO 0800,1100,1400,1800 [facility] Last Admin: 07/18/20 10:30 Dose: 1 tab Documented by: Escitalopram Oxalate (Lexapro) 10 mg PO DAILY [facility] Last Admin: 07/17/20 10:19 Dose: 10 mg Documented by: Escitalopram Oxalate (Lexapro) 10 mg PO DAILY [facility] Last Admin: 07/18/20 09:41 Dose: 10 mg Documented by: Fluconazole (Diflucan) 200 mg PO DAILY [facility] Last Admin: 07/17/20 14:51 Dose: Not Given Documented by: Sodium Chloride (Normal Saline) 1,000 mls @ 500 mls/hr IV .BOLUS ONE Stop: 07/16/20 20:29 Last Admin: 07/16/20 18:48 Dose: 500 mls/hr Documented by: Sodium Chloride (Normal Saline) 1,000 mls @ 100 mls/hr IV ASDIRECTED [facility] Last Admin: 07/17/20 03:10 Dose: 100 mls/hr Documented by: Levothyroxine Sodium (Levothyroxine) 75 mcg PO DAILY@0730 [facility] Last Admin: 07/17/20 10:19 Dose: 75 mcg Documented by: Montelukast Sodium (Singulair) 10 mg PO BEDTIME [facility] Last Admin: 07/16/20 21:43 Dose: 10 mg Documented by: Montelukast Sodium (Singulair) 10 mg PO BEDTIME [facility] Last Admin: 07/17/20 21:09 Dose: 10 mg Documented by: Pantoprazole Sodium (Protonix) 40 mg PO ACBREAKFAST [facility] Last Admin: 07/17/20 10:18 Dose: 40 mg Documented by: Pantoprazole Sodium (Protonix) 40 mg PO ACBREAKFAST [facility] Last Admin: 07/18/20 07:46 Dose: 40 mg Documented by: Allopurinol 300mg (Ptom) 0 each PO DAILY [facility] Last Admin: 07/18/20 09:41 Dose: 1 each Documented by: Levothyroxine 75mcg (Ptom) 0 each PO DAILY@0730 [facility] Last Admin: 07/18/20 07:46 Dose: 1 each Documented by: Potassium Chloride (Klor-Con M20) 20 meq PO BID [facility] Last Admin: 07/17/20 10:19 Dose: 20 meq Documented by: Pravastatin Sodium (Pravachol) 20 mg PO BEDTIME [facility] Last Admin: 07/16/20 21:43 Dose: 20 mg Documented by: Pravastatin Sodium (Pravachol) 20 mg PO BEDTIME [facility] Last Admin: 07/17/20 21:09 Dose: 20 mg Documented by: Topiramate (Topamax) 100 mg PO DAILY [facility] Last Admin: 07/17/20 10:20 Dose: 100 mg Documented by: Topiramate (Topamax) 50 mg PO DAILY [facility] Last Admin: 07/17/20 10:19 Dose: 50 mg Documented by: Topiramate (Topamax) 150 mg PO DAILY [facility] Last Admin: 07/18/20 09:40 Dose: 150 mg Documented by: - Exam Quality Assessment: No: Supplemental Oxygen General: Alert, Oriented, Cooperative, No Acute Distress Lungs: Normal Respiratory Effort GI/Abdominal Exam: Soft, No Distention Extremities: No Pedal Edema Skin: Warm, Dry Psy/Mental Status: Alert, Normal Affect Sepsis Event Note - Evaluation Sepsis Screening Result: No Definite Risk - Focused Exam Vital Signs: Vital Signs Temp Pulse Resp BP BP Pulse Ox 07/19/20 07:11 35.1 C L 59 L 16 124/46 L 99 07/19/20 02:34 36.4 C 61 16 146/119 H 97 - Problem List & Annotations (1) Esophageal dysmotility due to systemic disease SNOMED Code(s): 943835823 Code(s): K22.4 - DYSKINESIA OF ESOPHAGUS Status: Acute Current Visit: Yes - Problem List Review Problem List Initiated/Reviewed/Updated: Yes - My Orders Last 24 Hours: My Active Orders 07/18/20 11:13 Notify Provider Consults [RC] ASDIRECTED Consult to Physician [CONS] Routine 07/18/20 11:15 Admission Status [Patient Status] [ADT] Routine 07/19/20 Dinner NPO After Midnight [Nothing per Oral After Midnight Diet] [DIET] 07/20/20 07:00 Consult to Dietary [Consult to Coloring Room Man] [CONS] Routine - Plan Plan:: ASSESSMENT AND PLAN - 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 Significant dysfunction making it difficult to consume anything more than very small quantities of liquids. She also has a Zenker's diverticulum and a moderate hiatal hernia. She has had significant weight loss and difficulty with any sort of oral intake. -Consult with Dr. Mota, anticipate feeding tube placement on Monday -Continue clear liquids and IV fluids as needed to maintain hydration -Supplement electrolytes as indicated -Dietary consult Monday for tube feed recommendations Urinary Tract Infection-manifestations of nausea and diarrhea. Vitals are stable. Urine culture grew out a Klebsiella that is resistant to a fair number of antibiotics but is sensitive to ceftriaxone. -Continue ceftriaxone -Physical and occupational therapy for strengthening Parkinson disease-stable other than the possible esophageal dysphagia as discussed above. -continue outpatient medications MAINTENANCE ISSUES -DVT prophylaxis- SCD -GI prophylaxis; PPI -Nutrition; clear liquids, nothing by mouth after midnight CODE STATUS-DNR/DNI ADMISSION STATUS-patient will be transitioned to inpatient status today with severe limitation of oral intake in the need for a feeding tube to be placed to maintain any sort of hydration or nutrition. DISPOSITION-anticipate discharge to home with family after the hospital stay. PRIMARY CARE PROVIDER- Dr. Adriana Mccormick MD
[2020-07-19] MEDS: cefTRIAXone 1 GM in Sodium Chloride 0.9% 50 ML IV SCH (18:00)
[2020-07-19] MEDS: CARBIDOPA PO SCH (20:33)
[2020-07-19] MEDS: LEVODOPA PO SCH (20:33)
[2020-07-19] MEDS: Montelukast 10 MG Tab PO SCH (20:34)
[2020-07-19] MEDS: Pravastatin 20 MG Tab PO SCH (20:34)
[2020-07-20] MEDS: D5 1/2 NS w/ 20 mEq/L KCl 1,000 ML IV SCH (03:02)
[2020-07-20] MEDS: Ondansetron 4 MG Tab.DIS PO PRN ×3 (05:15→20:48)
[2020-07-20] MEDS ORDERED: Potassium Chloride 20 MEQ in Premix Bag 1 BAG IV SCH (06:00)
--- NOTE | 2020-07-20 07:12 | PN ---
DATE OF SERVICE: 07/20/2020 SUBJECTIVE: Alysa is n.p.o. She will be having a gastrostomy tube placement today secondary to esophageal motility due to Parkinson disease. Hemoglobin this morning is 9.9, potassium 3.1, sodium , phosphorus 1.5, and mag is 1.4. She is alert, orientated. Denies any pain. Vital signs have been stable. Prior to n.p.o., oral intake was 1330, urine output 6 voids. REVIEW OF SYSTEMS: Remainder of review of systems negative for any pertinent positives and negatives. OBJECTIVE: GENERAL: Alysa Saravia is an 85-year-old female. She is alert, orientated. VITAL SIGNS: TPR 95.9, 69, 16, blood pressure 147/65. HEENT: Negative. NECK: Supple. HEART: Regular rate and rhythm. LUNGS: Clear. ABDOMEN: Soft, nontender. EXTREMITIES: Without peripheral edema. ASSESSMENT: Esophageal motility. PLAN: 1. Remain n.p.o. for PEG tube placement. 2. Give oral medication with sip of water. 3. Orders to be written postoperatively. 4. We will evaluate p.r.n. or in a.m. Gris Fair PA-C /[id number]
[2020-07-20] MEDS: Levothyroxine 25 MCG Tab PO SCH (07:55)
[2020-07-20] MEDS: Pantoprazole 40 MG Tab.CR PO SCH (07:56)
[2020-07-20] MEDS: Carbidopa/Levodopa 25-100 MG Tab PO SCH ×4 (07:56→18:05)
[2020-07-20] MEDS: Fluticasone Propionate Nasal Spray 16 GM Bottle NASBOTH SCH (07:59)
[2020-07-20] MEDS: Hypromellose 0.3% Ophth Soln 15 ML Bottle EYEBOTH SCH (07:59)
[2020-07-20] MEDS ORDERED: Potassium Chloride Riders 40 MEQ in Premix Bag 1 BAG IV ONE (08:26)
[2020-07-20] MEDS ORDERED: Potassium Chloride 20 MEQ, Lidocaine 1% 2 ML in Sodium Chloride 0.9% 100 ML IV ONE (08:30)
[2020-07-20] MEDS ORDERED: fentaNYL 100 MCG/2 ML SDV ONE (09:49)
[2020-07-20] MEDS ORDERED: Propofol 200 MG/20 ML SDV ONE (09:49)
[2020-07-20] MEDS ORDERED: Ondansetron 4 MG/2 ML SDV ONE (10:23)
[2020-07-20] MEDS ORDERED: Bupivacaine 0.5%/EPINEPHrine 1:200,000 50 ML MDV ONE (10:26)
--- NOTE | 2020-07-20 10:38 | PCM.PN ---
- General Info Date of Service: 07/20/20 Subjective Update: Ms. Saravia has been stable since yesterday. Will undergo PEG feeding tube placement today by Dr. Mota, for management of dismotility. Functional Status: Reports: Ambulating, Urinating. Denies: Tolerating Diet - Review of Systems General: Reports: Weakness, Fatigue. Denies: Fever, Chills Pulmonary: Reports: No Symptoms Cardiovascular: Reports: No Symptoms Gastrointestinal: Reports: Difficulty Swallowing. Denies: Abdominal Pain, Decreased Appetite, Diarrhea, Melena, Nausea, Vomiting - Patient Data Vitals - Most Recent: Last Vital Signs Temp 96.2 F L 07/20/20 07:34 Pulse 64 07/20/20 07:34 Resp 16 07/20/20 07:34 BP 131/63 07/20/20 07:34 Pulse Ox 98 07/20/20 07:34 Weight - Most Recent: 154 lb I&O - Last 24 Hours: Intake & Output 07/19/20 07/20/20 07/20/20 22:59 06:59 14:59 Intake Total 946 962 Balance 946 962 Lab Results Last 24 Hours: Laboratory Results - last 24 hr 07/20/20 07/20/20 Range/Units 04:20 04:20 WBC 6.8 (4.5-11.0) K/uL RBC 3.28 L (3.30-5.50) M/uL Hgb 9.9 L (12.0-15.0) g/dL Hct 29.4 L (36.0-48.0) % MCV 90 (80-98) fL MCH 30 (27-31) pg MCHC 34 (32-36) % Plt Count 194 (150-400) K/uL Sodium 136 L (140-148) mmol/L Potassium 3.1 L (3.6-5.2) mmol/L Chloride 104 (100-108) mmol/L Carbon Dioxide 24 (21-32) mmol/L Anion Gap 11.1 (5.0-14.0) mmol/L BUN 6 L (7-18) mg/dL Creatinine 0.7 (0.6-1.0) mg/dL Est Cr Clr Drug Dosing 54.71 mL/min Estimated GFR (MDRD) > 60 (>60) Glucose 117 H (74-106) mg/dL Calcium 7.9 L (8.5-10.1) mg/dL Phosphorus 1.5 L (2.5-4.9) mg/dL Magnesium 1.4 L (1.8-2.4) mg/dL Total Bilirubin 0.4 (0.2-1.0) mg/dL AST 12 L D (15-37) U/L ALT 6 L (12-78) U/L Alkaline Phosphatase 79 (46-116) U/L Total Protein 5.2 L (6.4-8.2) g/dL Albumin 2.7 L (3.4-5.0) g/dL Globulin 2.5 (2.3-3.5) g/dL Albumin/Globulin Ratio 1.1 L (1.2-2.2) Med Orders - Current: Current Medications Acetaminophen (Tylenol Extra Strength) 500 mg PO BID PRN PRN Reason: Pain (moderate 4-6) Albuterol (Proventil Neb Soln) 2.5 mg NEB Q4H PRN PRN Reason: Shortness Of Breath/wheezing Allopurinol (Zyloprim) 150 mg PO DAILY [facility] Last Admin: 07/19/20 08:58 Dose: 150 mg Documented by: Artificial Tears (Genteal Mild To Moderate Ophth Soln) 0 ml EYEBOTH DAILY [facility] Last Admin: 07/20/20 07:59 Dose: 2 drop Documented by: Carbidopa/Levodopa (Sinemet 25-100 Mg) 1 tab PO 0800,1100,1400,1800 [facility] Last Admin: 07/20/20 07:56 Dose: 1 tab Documented by: Cyclobenzaprine HCl (Flexeril) 10 mg PO TID PRN PRN Reason: Muscle Spasm Escitalopram Oxalate (Lexapro) 10 mg PO DAILY [facility] Last Admin: 07/19/20 08:57 Dose: 10 mg Documented by: Fluticasone Propionate (Flonase) 0 gm NASBOTH DAILY [facility] Last Admin: 07/20/20 07:59 Dose: 2 spray Documented by: Ceftriaxone Sodium 1 gm/ (Sodium Chloride) 50 mls @ 100 mls/hr IV Q24H [facility] Last Admin: 07/19/20 18:00 Dose: 100 mls/hr Documented by: Potassium Chloride/Dextrose/Sod Cl (D5 1/2 Ns W/ 20 Meq/L Kcl) 1,000 mls @ 80 mls/hr IV ASDIRECTED [facility] Last Admin: 07/20/20 03:02 Dose: 80 mls/hr Documented by: Levothyroxine Sodium (Levothyroxine) 75 mcg PO DAILY@0730 [facility] Last Admin: 07/20/20 07:55 Dose: 75 mcg Documented by: Lorazepam (Ativan) 0.5 - 1 mg IV Q6H PRN PRN Reason: Nausea/Vomiting Montelukast Sodium (Singulair) 10 mg PO BEDTIME [facility] Last Admin: 07/19/20 20:34 Dose: 10 mg Documented by: Carbidopa/Levodopa (Er 25-100mg Ptom) 0 tab PO BEDTIME [facility] Last Admin: 07/19/20 20:33 Dose: 1 tab Documented by: Ondansetron HCl (Zofran Odt) 4 mg PO Q6H PRN PRN Reason: Nausea able to take PO Last Admin: 07/20/20 05:15 Dose: 4 mg Documented by: Pantoprazole Sodium (Protonix) 40 mg PO ACBREAKFAST [facility] Last Admin: 07/20/20 07:56 Dose: 40 mg Documented by: Pravastatin Sodium (Pravachol) 20 mg PO BEDTIME [facility] Last Admin: 07/19/20 20:34 Dose: 20 mg Documented by: Sodium Chloride (Saline Flush) 10 ml FLUSH ASDIRECTED PRN PRN Reason: Keep Vein Open Last Admin: 07/16/20 17:31 Dose: 10 ml Documented by: Topiramate (Topamax) 100 mg PO DAILY [facility] Last Admin: 07/19/20 08:57 Dose: 100 mg Documented by: Topiramate (Topamax) 50 mg PO DAILY [facility] Last Admin: 07/19/20 08:58 Dose: 50 mg Documented by: Triamcinolone Acetonide (Triamcinolone Acetonide 0.1% Crm) 0 gm TOP BID PRN PRN Reason: Rash Discontinued Medications Allopurinol (Zyloprim) 150 mg PO DAILY [facility] Last Admin: 07/17/20 10:20 Dose: 150 mg Documented by: Barium Sulfate (E-Z-Hd) 680 gm PO . DIRECTED PRN PRN Reason: RADIOLOGY EXAM Stop: 07/17/20 14:00 Last Admin: 07/17/20 13:09 Dose: 340 gm Documented by: Bupivacaine HCl/Epinephrine Bitart (Marcaine 0.5%/Epinephrine 1:200,000) Confirm Administered Dose 50 ml .ROUTE .STK-MED ONE Stop: 07/20/20 10:27 Carbidopa/Levodopa (Sinemet 25-100 Mg) 1 tab PO QID [facility] Last Admin: 07/16/20 22:11 Dose: 1 tab Documented by: Carbidopa/Levodopa (Sinemet 25-100 Mg) 1 tab PO 0800,1100,1400,1800 [facility] Last Admin: 07/17/20 14:45 Dose: 1 tab Documented by: Carbidopa/Levodopa (Sinemet 25-100 Mg) Confirm Administered Dose 1 tab .ROUTE .STK-MED ONE Stop: 07/16/20 22:10 Last Admin: 07/17/20 10:18 Dose: Not Given Documented by: Carbidopa/Levodopa (Sinemet 25-100 Mg) 1 tab PO 0800,1100,1400,1800 [facility] Last Admin: 07/18/20 10:30 Dose: 1 tab Documented by: Escitalopram Oxalate (Lexapro) 10 mg PO DAILY [facility] Last Admin: 07/17/20 10:19 Dose: 10 mg Documented by: Escitalopram Oxalate (Lexapro) 10 mg PO DAILY [facility] Last Admin: 07/18/20 09:41 Dose: 10 mg Documented by: Fentanyl (Sublimaze) Confirm Administered Dose 100 mcg .ROUTE .K-MED ONE Stop: 07/20/20 09:50 Fluconazole (Diflucan) 200 mg PO DAILY [facility] Last Admin: 07/17/20 14:51 Dose: Not Given Documented by: Sodium Chloride (Normal Saline) 1,000 mls @ 500 mls/hr IV .BOLUS ONE Stop: 07/16/20 20:29 Last Admin: 07/16/20 18:48 Dose: 500 mls/hr Documented by: Sodium Chloride (Normal Saline) 1,000 mls @ 100 mls/hr IV ASDIRECTED [facility] Last Admin: 07/17/20 03:10 Dose: 100 mls/hr Documented by: Potassium Chloride 20 meq/ (Premix) 0 mls @ 50 mls/hr IV Q2H [facility] Stop: 07/20/20 08:01 Last Admin: 07/20/20 05:51 Dose: 50 mls/hr Documented by: Potassium Chloride 20 meq/Lidocaine HCl 2 ml/ Sodium Chloride 112 mls @ 56 mls/hr IV ONETIME ONE Stop: 07/20/20 10:29 Last Admin: 07/20/20 09:34 Dose: 56 mls/hr Documented by: Levothyroxine Sodium (Levothyroxine) 75 mcg PO DAILY@0730 [facility] Last Admin: 07/17/20 10:19 Dose: 75 mcg Documented by: Lidocaine HCl (Xylocaine-Mpf 1%) 5 ml INJECT Q2H [facility] Stop: 07/20/20 08:01 Last Admin: 07/20/20 05:51 Dose: 5 ml Documented by: Montelukast Sodium (Singulair) 10 mg PO BEDTIME [facility] Last Admin: 07/16/20 21:43 Dose: 10 mg Documented by: Montelukast Sodium (Singulair) 10 mg PO BEDTIME [facility] Last Admin: 07/17/20 21:09 Dose: 10 mg Documented by: Ondansetron HCl (Zofran) Confirm Administered Dose 4 mg .ROUTE .STK-MED ONE Stop: 07/20/20 10:24 Pantoprazole Sodium (Protonix) 40 mg PO ACBREAKFAST [facility] Last Admin: 07/17/20 10:18 Dose: 40 mg Documented by: Pantoprazole Sodium (Protonix) 40 mg PO ACBREAKFAST [facility] Last Admin: 07/18/20 07:46 Dose: 40 mg Documented by: Allopurinol 300mg (Ptom) 0 each PO DAILY [facility] Last Admin: 07/18/20 09:41 Dose: 1 each Documented by: Levothyroxine 75mcg (Ptom) 0 each PO DAILY@729 [facility] Last Admin: 07/18/20 07:46 Dose: 1 each Documented by: Potassium Chloride (Klor-Con M20) 20 meq PO BID [facility] Last Admin: 07/17/20 10:19 Dose: 20 meq Documented by: Pravastatin Sodium (Pravachol) 20 mg PO BEDTIME [facility] Last Admin: 07/16/20 21:43 Dose: 20 mg Documented by: Pravastatin Sodium (Pravachol) 20 mg PO BEDTIME [facility] Last Admin: 07/17/20 21:09 Dose: 20 mg Documented by: Propofol (Diprivan 20 Ml) Confirm Administered Dose 200 mg .ROUTE .STK-MED ONE Stop: 07/20/20 09:50 Topiramate (Topamax) 100 mg PO DAILY [facility] Last Admin: 07/17/20 10:20 Dose: 100 mg Documented by: Topiramate (Topamax) 50 mg PO DAILY [facility] Last Admin: 07/17/20 10:19 Dose: 50 mg Documented by: Topiramate (Topamax) 150 mg PO DAILY [facility] Last Admin: 07/18/20 09:40 Dose: 150 mg Documented by: - Exam Quality Assessment: DVT Prophylaxis General: Alert, Oriented, Cooperative, Mild Distress Lungs: Clear to Auscultation, Normal Respiratory Effort Cardiovascular: Regular Rate, Regular Rhythm, No Murmurs GI/Abdominal Exam: Soft, Non-Tender, No Organomegaly, No Distention Extremities: Non-Tender, No Pedal Edema Sepsis Event Note - Evaluation Sepsis Screening Result: No Definite Risk - Focused Exam Vital Signs: Vital Signs Temp Pulse Resp BP BP Pulse Ox 07/20/20 07:34 96.2 F L 64 16 131/63 98 07/20/20 03:00 95.9 F L 69 16 147/65 H 96 07/19/20 22:35 96.8 F L 60 16 136/66 98 - Problem List Review Problem List Initiated/Reviewed/Updated: Yes - My Orders Last 24 Hours: My Active Orders 07/21/20 05:00 CBC WITH AUTO DIFF [HEME] Timed COMPREHENSIVE METABOLIC PN,CMP [CHEM] Timed - Plan Plan:: ASSESSMENT AND PLAN - 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 Significant dys function making it difficult to consume anything more than very small quantities of liquids. She also has a Zenker's diverticulum and a moderate hiatal hernia. She has had significant weight loss and difficulty with any sort of oral intake. -Consult with Dr. Mota, anticipate feeding tube placement today -Continue clear liquids and IV fluids as needed to maintain hydration -Supplement electrolytes as indicated -Dietary consult Monday for tube feed recommendations Urinary Tract Infection-manifestations of nausea and diarrhea. Vitals are stable. Urine culture grew out a Klebsiella that is resistant to a fair number of antibiotics but is sensitive to ceftriaxone. -Continue ceftriaxone -Physical and occupational therapy for strengthening Parkinson disease-stable other than the possible esophageal dysphagia as discussed above. -continue outpatient medications MAINTENANCE ISSUES -DVT prophylaxis- SCD -GI prophylaxis; PPI -Nutrition; clear liquids, nothing by mouth after midnight CODE STATUS-DNR/DNI ADMISSION STATUS-patient will be transitioned to inpatient status today with severe limitation of oral intake in the need for a feeding tube to be placed to maintain any sort of hydration or nutrition. DISPOSITION-anticipate discharge to home with family after the hospital stay. PRIMARY CARE PROVIDER- Dr. Wright
[2020-07-20] MEDS ORDERED: Magnesium Oxide 400 MG Tab PO SCH (11:15)
[2020-07-20] MEDS ORDERED: Acetaminophen 500 MG Tab PO PRN (11:41)
[2020-07-20] MEDS ORDERED: Dextrose 5%-0.45% NaCl 1,000 ML IV SCH (11:45)
[2020-07-20] MEDS ORDERED: Magnesium Sulfate/Water 2 GM/50 ML BAG IV SCH (12:00)
[2020-07-20] MEDS: Allopurinol 100 MG Tab PO SCH (12:37)
[2020-07-20] MEDS: Escitalopram 10 MG Tab PO SCH (12:37)
[2020-07-20] MEDS: Topiramate 25 MG Tab PO SCH (12:37)
[2020-07-20] MEDS: Topiramate 100 MG Tab PO SCH (12:37)
[2020-07-20] MEDS: Potassium Phos in 0.9 % NaCl 15 MMOL in Premix Bag 1 BAG IV SCH ×6 (12:45→23:12)
[2020-07-20] MEDS: HYDROmorphone ORAL Concentrate 1 MG/ML CONT U/D GTUBE PRN ×2 (13:28→17:48)
[2020-07-20] MEDS ORDERED: Potassium Phos in 0.9 % NaCl 15 MMOL in Premix Bag 1 BAG IV SCH ×2 (13:30)
[2020-07-20] MEDS: Magnesium Sulfate/Water 2 GM/50 ML BAG IV SCH ×2 (15:07→20:37)
--- NOTE | 2020-07-20 17:33 | PN ---
DATE OF SERVICE: 07/19/2020 This is an 85-year-old female who has been admitted at this time with increasing problems with dysphagia. She underwent a recent endoscopy and an upper GI x-ray which showed a small Zenker diverticulum that likely will be clinically significant, but otherwise a wide open esophagus and EG junction area status post previous Kaitlynn fundoplication. It is felt that her dysphagia is related to esophageal dysmotility related to advancing Parkinson disease. A discussion held with the patient and the family along with Dr. Mccormick and the plan is to proceed with a gastrostomy tube that will be placed tomorrow starting today and then plan will be to proceed with a percutaneous endoscopic gastrostomy tube tomorrow or a possible need being for an open procedure if the situation becomes more difficult than typical and otherwise she is receiving 24-hour Rocephin which should cover the upper GI landon satisfactorily. We will give her a dose of Sinemet in the morning with a sip of water prior to the procedure. Tristen Mota MD /[id number]
[2020-07-20] MEDS: cefTRIAXone 1 GM in Sodium Chloride 0.9% 50 ML IV SCH (19:30)
[2020-07-20] MEDS: CARBIDOPA PO SCH (20:42)
[2020-07-20] MEDS: LEVODOPA PO SCH (20:42)
[2020-07-20] MEDS: Pravastatin 20 MG Tab PO SCH (20:43)
[2020-07-20] MEDS: Montelukast 10 MG Tab PO SCH (20:44)
[2020-07-21] MEDS: Potassium Phos in 0.9 % NaCl 15 MMOL in Premix Bag 1 BAG IV SCH ×2 (02:13)
[2020-07-21] MEDS: Magnesium Sulfate/Water 2 GM/50 ML BAG IV SCH ×4 (02:14→21:14)
[2020-07-21] MEDS: Fluticasone Propionate Nasal Spray 16 GM Bottle NASBOTH SCH (09:01)
[2020-07-21] MEDS: Hypromellose 0.3% Ophth Soln 15 ML Bottle EYEBOTH SCH (09:01)
[2020-07-21] MEDS: Potassium Acetate 40 MEQ/20 ML SDV SCH ×3 (09:01→21:16)
[2020-07-21] MEDS: Pantoprazole 40 MG Tab.CR PO SCH (09:01)
[2020-07-21] MEDS: Levothyroxine 25 MCG Tab PO SCH (09:05)
[2020-07-21] MEDS: Topiramate 25 MG Tab PO SCH (09:05)
[2020-07-21] MEDS: Carbidopa/Levodopa 25-100 MG Tab PO SCH ×4 (09:05→17:48)
[2020-07-21] MEDS: Topiramate 100 MG Tab PO SCH (09:05)
[2020-07-21] MEDS: Allopurinol 100 MG Tab PO SCH (09:06)
[2020-07-21] MEDS: Escitalopram 10 MG Tab PO SCH (09:06)
[2020-07-21] MEDS: Dextrose 5%-0.45% NaCl 1,000 ML IV SCH (09:13)
--- NOTE | 2020-07-21 09:20 | PN ---
DATE OF SERVICE: 07/21/2020 SUBJECTIVE: Ms Saravia is postop day 1. She states she has a little bit of pain around her gastrostomy tube. She has been up ambulating, been on sips of clear liquids. She has no other concerns or questions today. OBJECTIVE: GENERAL: Alysa is a pleasant 85-year-old female. She is alert and orientated. VITAL SIGNS: TPR 96.7, 62, 18, blood pressure 140/54. HEENT: Negative. NECK: Supple. HEART: Regular rate and rhythm. LUNGS: Clear. ABDOMEN: Dressings dry and intact. Abdominal binder is on. EXTREMITIES: Without peripheral edema. ASSESSMENT: Percutaneous endoscopic gastrostomy tube placement for severe esophageal dysmotility. Date of procedure: 07/20/2020. Surgeon: Tristen Mota MD. PLAN: 1. Initiate tube feedings per order in the chart. Name of formula: [employer] Standard 1.0. Start formula at 20 mL/h. Check gastric residual volume after 4 hours. Hold the feeding if it is greater than 250. If the volume is less than 250, increase the rate by 20 mL. Repeat steps 2 and 3 until the patient reaches the goal rate maintenance. Maintenance feeding schedule, 6 to 8 mL/h. 1. Flush feeding tube with 140 mL of free water every 4 hours. 2. Order written to have dietitian talk to Kyler Saravia, son as they would like to initiate bolus feedings when going home. 3. Check CBC, CMP, mag, phos, BNP in a.m. 4. Decrease IV to 40 mL/h. 5. Potassium acetate 60 mEq in 3 divided doses through G-tube. 6. Full liquid diet. 7. K-Phos 30 mmol through gastrostomy tube one time. 8. We will evaluate p.r.n. or in a.m. Gris Fair PA-C /[id number]
[2020-07-21] MEDS: Ondansetron 4 MG/2 ML SDV IVPUSH PRN (09:29)
--- NOTE | 2020-07-21 10:39 | PCM.PN ---
- General Info Date of Service: 07/21/20 Subjective Update: Ms. Saravia's been stable status post PEG feeding tube placement yesterday by Dr. Mota. She is experiencing some symptoms of nausea today with clear liquids and applesauce. Current plan is to proceed with trial of tube feedings starting later this afternoon. She is unable to provide a meaningful history concerning recent symptoms or review of systems because of underlying dementia. - Patient Data Vitals - Most Recent: Last Vital Signs Temp 96.6 F L 07/21/20 10:16 Pulse 65 07/21/20 10:16 Resp 18 07/21/20 10:16 BP 124/61 07/21/20 10:16 Pulse Ox 98 07/21/20 10:16 Weight - Most Recent: 155 lb 6.4 oz I&O - Last 24 Hours: Intake & Output 07/20/20 07/21/20 07/21/20 22:59 06:59 14:59 Intake Total 50 1449 50 Output Total 350 150 Balance -300 1299 50 Lab Results Last 24 Hours: Laboratory Results - last 24 hr 07/21/20 07/21/20 07/21/20 Range/Units 05:23 05:23 05:23 WBC 8.1 (4.5-11.0) K/uL RBC 3.05 L (3.30-5.50) M/uL Hgb 9.2 L (12.0-15.0) g/dL Hct 27.4 L (36.0-48.0) % MCV 90 (80-98) fL MCH 30 (27-31) pg MCHC 34 (32-36) % Plt Count 177 (150-400) K/uL Neut % (Auto) 80 H (36-66) % Lymph % (Auto) 11 L (24-44) % [place] % (Auto) 8 H (2-6) % Eos % (Auto) 1 L (2-4) % Baso % (Auto) 0 (0-1) % Sodium 137 L (140-148) mmol/L Potassium 3.5 L (3.6-5.2) mmol/L Chloride 104 (100-108) mmol/L Carbon Dioxide 25 (21-32) mmol/L Anion Gap 11.5 (5.0-14.0) mmol/L BUN 3 L (7-18) mg/dL Creatinine 0.6 (0.6-1.0) mg/dL Est Cr Clr Drug Dosing 63.82 mL/min Estimated GFR (MDRD) > 60 (>60) Glucose 106 (74-106) mg/dL Calcium 8.0 L (8.5-10.1) mg/dL Phosphorus 4.1 (2.5-4.9) mg/dL Total Bilirubin 0.4 (0.2-1.0) mg/dL AST 8 L (15-37) U/L ALT 7 L (12-78) U/L Alkaline Phosphatase 72 (46-116) U/L Total Protein 5.5 L (6.4-8.2) g/dL Albumin 3.1 L (3.4-5.0) g/dL Globulin 2.4 (2.3-3.5) g/dL Albumin/Globulin Ratio 1.3 (1.2-2.2) Med Orders - Current: Current Medications Acetaminophen (Tylenol Extra Strength) 500 mg PO Q6H PRN PRN Reason: Pain (moderate 4-6) Albuterol (Proventil Neb Soln) 2.5 mg NEB Q4H PRN PRN Reason: Shortness Of Breath/wheezing Allopurinol (Zyloprim) 150 mg PO DAILY [facility] Last Admin: 07/21/20 09:06 Dose: 150 mg Documented by: Artificial Tears (Genteal Mild To Moderate Ophth Soln) 0 ml EYEBOTH DAILY [facility] Last Admin: 07/21/20 09:01 Dose: 2 drop Documented by: Carbidopa/Levodopa (Sinemet 25-100 Mg) 1 tab PO 0800,1100,1400,1800 [facility] Last Admin: 07/21/20 09:05 Dose: 1 tab Documented by: Cyclobenzaprine HCl (Flexeril) 10 mg PO TID PRN PRN Reason: Muscle Spasm Escitalopram Oxalate (Lexapro) 10 mg PO DAILY [facility] Last Admin: 07/21/20 09:06 Dose: 10 mg Documented by: Fluticasone Propionate (Flonase) 0 gm NASBOTH DAILY [facility] Last Admin: 07/21/20 09:01 Dose: 2 spray Documented by: Hydromorphone HCl (Dilaudid 1 Mg/Ml U/D) 2 mg GTUBE Q4H PRN PRN Reason: PAIN Last Admin: 07/20/20 17:48 Dose: 2 mg Documented by: Ceftriaxone Sodium 1 gm/ (Sodium Chloride) 50 mls @ 100 mls/hr IV Q24H [facility] Last Admin: 07/20/20 19:30 Dose: 100 mls/hr Documented by: Magnesium Sulfate (Magnesium Sulfate In Water 2 Gm/50 Ml) 2 gm in 50 mls @ 25 mls/hr IV Q6H [facility] Stop: 07/23/20 09:59 Last Admin: 07/21/20 09:06 Dose: 25 mls/hr Documented by: Albumin Human (Albumin 25%) 25 gm in 100 mls @ 25 mls/hr IV Q24H [facility] Stop: 07/22/20 19:59 Last Admin: 07/20/20 19:20 Dose: 25 mls/hr Documented by: Dextrose/Sodium Chloride (Dextrose 5%-1/2 Ns) 1,000 mls @ 40 mls/hr IV ASDIRECTED [facility] Last Admin: 07/21/20 09:13 Dose: 40 mls/hr Documented by: Levothyroxine Sodium (Levothyroxine) 75 mcg PO DAILY@0730 [facility] Last Admin: 07/21/20 09:05 Dose: 75 mcg Documented by: Loperamide HCl (Loperamide) 2 mg GTUBE ASDIRECTED PRN PRN Reason: LOOSE STOOL Lorazepam (Ativan) 0.5 - 1 mg IV Q6H PRN PRN Reason: Nausea/Vomiting Montelukast Sodium (Singulair) 10 mg PO BEDTIME [facility] Last Admin: 07/20/20 20:44 Dose: 10 mg Documented by: Carbidopa/Levodopa (Er 25-100mg Ptom) 0 tab PO BEDTIME [facility] Last Admin: 07/20/20 20:42 Dose: 1 tab Documented by: Ondansetron HCl (Zofran Odt) 4 mg PO Q6H PRN PRN Reason: Nausea able to take PO Last Admin: 07/20/20 20:48 Dose: 4 mg Documented by: Ondansetron HCl (Zofran) 4 mg IVPUSH Q4H PRN PRN Reason: Nausea/Vomiting Last Admin: 07/21/20 09:29 Dose: 4 mg Documented by: Pantoprazole Sodium (Protonix) 40 mg PO ACBREAKFAST [facility] Last Admin: 07/21/20 09:01 Dose: 40 mg Documented by: Potassium Acetate (Potassium Acetate) 20 meq .XX TID [facility] Stop: 07/21/20 23:59 Last Admin: 07/21/20 09:01 Dose: 20 meq Documented by: Potassium Phosphate (Potassium Phosphates) 30 mmole .XX ONETIME ONE Stop: 07/21/20 12:01 Pravastatin Sodium (Pravachol) 20 mg PO BEDTIME [facility] Last Admin: 07/20/20 20:43 Dose: 20 mg Documented by: Topiramate (Topamax) 100 mg PO DAILY [facility] Last Admin: 07/21/20 09:05 Dose: 100 mg Documented by: Topiramate (Topamax) 50 mg PO DAILY [facility] Last Admin: 07/21/20 09:05 Dose: 50 mg Documented by: Triamcinolone Acetonide (Triamcinolone Acetonide 0.1% Crm) 0 gm TOP BID PRN PRN Reason: Rash Discontinued Medications Acetaminophen (Tylenol Extra Strength) 500 mg PO BID PRN PRN Reason: Pain (moderate 4-6) Allopurinol (Zyloprim) 150 mg PO DAILY [facility] Last Admin: 07/17/20 10:20 Dose: 150 mg Documented by: Barium Sulfate (E-Z-Hd) 680 gm PO . DIRECTED PRN PRN Reason: RADIOLOGY EXAM Stop: 07/17/20 14:00 Last Admin: 07/17/20 13:09 Dose: 340 gm Documented by: Bupivacaine HCl/Epinephrine Bitart (Marcaine 0.5%/Epinephrine 1:200,000) Confirm Administered Dose 50 ml .ROUTE .STK-MED ONE Stop: 07/20/20 10:27 Carbidopa/Levodopa (Sinemet 25-100 Mg) 1 tab PO QID [facility] Last Admin: 07/16/20 22:11 Dose: 1 tab Documented by: Carbidopa/Levodopa (Sinemet 25-100 Mg) 1 tab PO 0800,1100,1400,1800 [facility] Last Admin: 07/17/20 14:45 Dose: 1 tab Documented by: Carbidopa/Levodopa (Sinemet 25-100 Mg) Confirm Administered Dose 1 tab .ROUTE .STK-MED ONE Stop: 07/16/20 22:10 Last Admin: 07/17/20 10:18 Dose: Not Given Documented by: Carbidopa/Levodopa (Sinemet 25-100 Mg) 1 tab PO 0800,1100,1400,1800 [facility] Last Admin: 07/18/20 10:30 Dose: 1 tab Documented by: Escitalopram Oxalate (Lexapro) 10 mg PO DAILY [facility] Last Admin: 07/17/20 10:19 Dose: 10 mg Documented by: Escitalopram Oxalate (Lexapro) 10 mg PO DAILY [facility] Last Admin: 07/18/20 09:41 Dose: 10 mg Documented by: Fentanyl (Sublimaze) Confirm Administered Dose 100 mcg .ROUTE .STK-MED ONE Stop: 07/20/20 09:50 Fluconazole (Diflucan) 200 mg PO DAILY [facility] Last Admin: 07/17/20 14:51 Dose: Not Given Documented by: Sodium Chloride (Normal Saline) 1,000 mls @ 500 mls/hr IV .BOLUS ONE Stop: 07/16/20 20:29 Last Admin: 07/16/20 18:48 Dose: 500 mls/hr Documented by: Sodium Chloride (Normal Saline) 1,000 mls @ 100 mls/hr IV ASDIRECTED [facility] Last Admin: 07/17/20 03:10 Dose: 100 mls/hr Documented by: Potassium Chloride/Dextrose/Sod Cl (D5 1/2 Ns W/ 20 Meq/L Kcl) 1,000 mls @ 80 mls/hr IV ASDIRECTED [facility] Last Admin: 07/20/20 03:02 Dose: 80 mls/hr Documented by: Potassium Chloride 20 meq/ (Premix) 0 mls @ 50 mls/hr IV Q2H [facility] Stop: 07/20/20 08:01 Last Admin: 07/20/20 05:51 Dose: 50 mls/hr Documented by: Potassium Chloride 20 meq/Lidocaine HCl 2 ml/ Sodium Chloride 112 mls @ 56 mls/hr IV ONETIME ONE Stop: 07/20/20 10:29 Last Admin: 07/20/20 09:34 Dose: 56 mls/hr Documented by: Dextrose/Sodium Chloride (Dextrose 5%-1/2 Ns) 1,000 mls @ 80 mls/hr IV ASDIRECTED [facility] Last Admin: 07/20/20 12:45 Dose: 80 mls/hr Documented by: Potassium Phosphate 15 mmol/ (Premix) 250 mls @ 85 mls/hr IV Q3H [facility] Stop: 07/21/20 01:27 Potassium Phosphate 15 mmol/ (Premix) 250 mls @ 85 mls/hr IV Q3H [facility] Stop: 07/21/20 00:27 Last Admin: 07/21/20 02:13 Dose: 85 mls/hr Documented by: Levothyroxine Sodium (Levothyroxine) 75 mcg PO DAILY@0730 [facility] Last Admin: 07/17/20 10:19 Dose: 75 mcg Documented by: Lidocaine HCl (Xylocaine-Mpf 1%) 5 ml INJECT Q2H [facility] Stop: 07/20/20 08:01 Last Admin: 07/20/20 05:51 Dose: 5 ml Documented by: Magnesium Oxide (Magnesium Oxide) 400 mg PO BID [facility] Last Admin: 07/20/20 15:00 Dose: Not Given Documented by: Montelukast Sodium (Singulair) 10 mg PO BEDTIME [facility] Last Admin: 07/16/20 21:43 Dose: 10 mg Documented by: Montelukast Sodium (Singulair) 10 mg PO BEDTIME [facility] Last Admin: 07/17/20 21:09 Dose: 10 mg Documented by: Ondansetron HCl (Zofran) Confirm Administered Dose 4 mg .ROUTE .[facility]-MED ONE Stop: 07/20/20 10:24 Pantoprazole Sodium (Protonix) 40 mg PO ACBREAKFAST [facility] Last Admin: 07/17/20 10:18 Dose: 40 mg Documented by: Pantoprazole Sodium (Protonix) 40 mg PO ACBREAKFAST [facility] Last Admin: 07/18/20 07:46 Dose: 40 mg Documented by: Allopurinol 300mg (Ptom) 0 each PO DAILY [facility] Last Admin: 07/18/20 09:41 Dose: 1 each Documented by: Levothyroxine 75mcg (Ptom) 0 each PO DAILY@0730 [facility] Last Admin: 07/18/20 07:46 Dose: 1 each Documented by: Potassium Chloride (Klor-Con M20) 20 meq PO BID [facility] Last Admin: 07/17/20 10:19 Dose: 20 meq Documented by: Pravastatin Sodium (Pravachol) 20 mg PO BEDTIME [facility] Last Admin: 07/16/20 21:43 Dose: 20 mg Documented by: Pravastatin Sodium (Pravachol) 20 mg PO BEDTIME [facility] Last Admin: 07/17/20 21:09 Dose: 20 mg Documented by: Propofol (Diprivan 20 Ml) Confirm Administered Dose 200 mg .ROUTE .STK-MED ONE Stop: 07/20/20 09:50 Sodium Chloride (Saline Flush) 10 ml FLUSH ASDIRECTED PRN PRN Reason: Keep Vein Open Last Admin: 07/16/20 17:31 Dose: 10 ml Documented by: Topiramate (Topamax) 100 mg PO DAILY [facility] Last Admin: 07/17/20 10:20 Dose: 100 mg Documented by: Topiramate (Topamax) 50 mg PO DAILY [facility] Last Admin: 07/17/20 10:19 Dose: 50 mg Documented by: Topiramate (Topamax) 150 mg PO DAILY [facility] Last Admin: 07/18/20 09:40 Dose: 150 mg Documented by: - Exam Quality Assessment: DVT Prophylaxis General: Alert, Cooperative, Mild Distress. No: Oriented Lungs: Clear to Auscultation, Normal Respiratory Effort Cardiovascular: Regular Rate, Regular Rhythm, No Murmurs GI/Abdominal Exam: Soft, Non-Tender, No Organomegaly, No Distention Extremities: Non-Tender, No Pedal Edema Sepsis Event Note - Evaluation Sepsis Screening Result: No Definite Risk - Focused Exam Vital Signs: Vital Signs Temp Pulse Resp BP Pulse Ox 07/21/20 10:16 96.6 F L 65 18 124/61 98 07/21/20 06:00 96.7 F L 62 18 140/54 L 97 07/21/20 02:40 96.7 F L 70 16 162/76 H 98 07/20/20 22:39 97.3 F 66 16 141/61 H 96 - Problem List Review Problem List Initiated/Reviewed/Updated: Yes - My Orders Last 24 Hours: My Active Orders 07/20/20 14:00 Magnesium Sulfate/Water [Magnesium Sulfate in Water 2 GM/50 ML] 2 gm in 50 ml IV Q6H - Plan Plan:: ASSESSMENT AND PLAN - 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 Significant dysfunction making it difficult to consume anything more than very small quantities of liquids. She also has a Zenker's diverticulum and a moderate hiatal hernia. She has had significant weight loss and difficulty with any sort of oral intake. She is status post PEG feeding tube placement yesterday by Dr. Mota -Surgical follow-up per Dr. Mota -Initiate tube feedings today as per Dr. Mota and dietary recommendations -Supplement electrolytes as indicated Urinary Tract Infection-manifestations of nausea and diarrhea. Vitals are stable. Urine culture grew out a Klebsiella that is resistant to a fair number of antibiotics but is sensitive to ceftriaxone. -Continue ceftriaxone -Physical and occupational therapy for strengthening Parkinson disease-stable other than the possible esophageal dysphagia as discussed above. -continue outpatient medications MAINTENANCE ISSUES -DVT prophylaxis- SCD -GI prophylaxis; PPI -Nutrition; clear liquids, nothing by mouth after midnight CODE STATUS-DNR/DNI ADMISSION STATUS-patient will be transitioned to inpatient status today with severe limitation of oral intake in the need for a feeding tube to be placed to maintain any sort of hydration or nutrition. DISPOSITION-anticipate discharge to home with family after the hospital stay. PRIMARY CARE PROVIDER- Dr. Wright
[2020-07-21] MEDS ORDERED: Potassium Phosphates 3 mMole/ML 15 ML SDV ONE (12:00)
[2020-07-21] MEDS: cefTRIAXone 1 GM in Sodium Chloride 0.9% 50 ML IV SCH (18:08)
[2020-07-21] MEDS: Montelukast 10 MG Tab PO SCH (21:14)
[2020-07-21] MEDS: CARBIDOPA PO SCH (21:16)
[2020-07-21] MEDS: LEVODOPA PO SCH (21:16)
[2020-07-21] MEDS: Pravastatin 20 MG Tab PO SCH (21:17)
[2020-07-22] MEDS: Magnesium Sulfate/Water 2 GM/50 ML BAG IV SCH ×4 (02:23→20:54)
--- NOTE | 2020-07-22 07:59 | PN ---
DATE OF SERVICE: 07/22/2020 SUBJECTIVE: Alysa has tolerated her tube feedings up to 68 mL/hour. The continuous feedings will be stopped and she will be starting the boluses. Reports pain is controlled. This morning hemoglobin 9.2. Sodium 137, potassium 3.5, phosphorus 2.3. Afebrile. Oral intake 820. Remainder of review of systems negative for any pertinent positives and negatives. OBJECTIVE: GENERAL: Alysa Saravia is a pleasant 85-year-old female. She is alert and orientated. VITAL SIGNS: TPR is 97, 61, 18. Blood pressure 122/66. HEENT: Negative. NECK: Supple. HEART: Regular rate and rhythm. LUNGS: Clear. ABDOMEN: Dressings dry and intact. Gastrostomy tube in place. EXTREMITIES: Without peripheral edema. ASSESSMENT: 1. Percutaneous endoscopic gastrostomy tube placement for severe esophageal dysmotility. 2. Date of procedure: 07/20/2020. Surgeon: Tristen Mota MD. PLAN: 1. Initiate bolus feedings, 5, scheduled throughout the day with 100 mL water flushes after each feeding. 2. K-Phos 45 millimoles b.i.d. through gastrostomy tube. 3. Saline lock IV. 4. Check CBC, CMP, phos, and BNP in a.m. 5. We will evaluate p.r.n. or in a.m. Gris Fair PA-C /[id number]
[2020-07-22] MEDS: Pantoprazole 40 MG Tab.CR PO SCH (08:10)
[2020-07-22] MEDS: Carbidopa/Levodopa 25-100 MG Tab PO SCH ×4 (08:10→17:01)
[2020-07-22] MEDS: Potassium Phosphates 3 mMole/ML 15 ML SDV SCH ×2 (08:10→20:54)
[2020-07-22] MEDS: Escitalopram 10 MG Tab PO SCH (08:11)
[2020-07-22] MEDS: Allopurinol 100 MG Tab PO SCH (08:11)
[2020-07-22] MEDS: Topiramate 25 MG Tab PO SCH (08:11)
[2020-07-22] MEDS: Topiramate 100 MG Tab PO SCH (08:11)
[2020-07-22] MEDS: Levothyroxine 25 MCG Tab PO SCH (08:11)
[2020-07-22] MEDS: Fluticasone Propionate Nasal Spray 16 GM Bottle NASBOTH SCH (08:12)
[2020-07-22] MEDS: Hypromellose 0.3% Ophth Soln 15 ML Bottle EYEBOTH SCH (08:12)
--- NOTE | 2020-07-22 12:04 | PCM.PN ---
- General Info Date of Service: 07/22/20 Subjective Update: Ms. Saravia has been stable over the last 24 hours, she has tolerated continuous infusion of tube feedings without significant difficulty or symptoms. She is being started on bolus feedings today with potential discharged home in 2 days. Functional Status: Reports: Tolerating Diet, Ambulating, Urinating - Review of Systems General: Reports: Weakness, Fatigue. Denies: Fever, Chills Pulmonary: Reports: No Symptoms Cardiovascular: Reports: No Symptoms Gastrointestinal: Reports: No Symptoms - Patient Data Vitals - Most Recent: Last Vital Signs Temp 95.8 F L 07/22/20 10:44 Pulse 67 07/22/20 10:44 Resp 18 07/22/20 10:44 BP 124/57 L 07/22/20 10:44 Pulse Ox 98 07/22/20 10:44 Weight - Most Recent: 156 lb I&O - Last 24 Hours: Intake & Output 07/21/20 07/22/20 07/22/20 22:59 06:59 14:59 Intake Total 1827 140 585 Output Total 30 Balance 1797 140 585 Lab Results Last 24 Hours: Laboratory Results - last 24 hr 07/22/20 07/22/20 07/22/20 Range/Units 05:10 05:10 05:11 WBC 7.6 (4.5-11.0) K/uL RBC 3.02 L (3.30-5.50) M/uL Hgb 9.2 L (12.0-15.0) g/dL Hct 27.4 L (36.0-48.0) % MCV 91 (80-98) fL MCH 31 (27-31) pg MCHC 34 (32-36) % Plt Count 193 (150-400) K/uL Sodium 137 L (140-148) mmol/L Potassium 3.5 L (3.6-5.2) mmol/L Chloride 103 (100-108) mmol/L Carbon Dioxide 26 (21-32) mmol/L Anion Gap 11.5 (5.0-14.0) mmol/L BUN 6 L D (7-18) mg/dL Creatinine 0.8 (0.6-1.0) mg/dL Est Cr Clr Drug Dosing 47.87 mL/min Estimated GFR (MDRD) > 60 (>60) Glucose 117 H (74-106) mg/dL Calcium 7.9 L (8.5-10.1) mg/dL Phosphorus 2.3 L (2.5-4.9) mg/dL Magnesium 4.0 H D (1.8-2.4) mg/dL Iron 60 (50-170) ug/dL TIBC 134 L (250-450) ug/dl % Saturation 45 (20-55) % Total Bilirubin 0.3 (0.2-1.0) mg/dL AST 11 L (15-37) U/L ALT 7 L (12-78) U/L Alkaline Phosphatase 71 (46-116) U/L NT-Pro-B Natriuret Pep 1561 H (5-450) pg/mL Total Protein 5.6 L (6.4-8.2) g/dL Albumin 3.3 L (3.4-5.0) g/dL Globulin 2.3 (2.3-3.5) g/dL Albumin/Globulin Ratio 1.4 (1.2-2.2) Med Orders - Current: Current Medications Acetaminophen (Tylenol Extra Strength) 500 mg PO Q6H PRN PRN Reason: Pain (moderate 4-6) Albuterol (Proventil Neb Soln) 2.5 mg NEB Q4H PRN PRN Reason: Shortness Of Breath/wheezing Allopurinol (Zyloprim) 150 mg PO DAILY [facility] Last Admin: 07/22/20 08:11 Dose: 150 mg Documented by: Artificial Tears (Genteal Mild To Moderate Ophth Soln) 0 ml EYEBOTH DAILY [facility] Last Admin: 07/22/20 08:12 Dose: 1 drop Documented by: Carbidopa/Levodopa (Sinemet 25-100 Mg) 1 tab PO 0800,1100,1400,1800 [facility] Last Admin: 07/22/20 11:55 Dose: 1 tab Documented by: Cyclobenzaprine HCl (Flexeril) 10 mg PO TID PRN PRN Reason: Muscle Spasm Escitalopram Oxalate (Lexapro) 10 mg PO DAILY [facility] Last Admin: 07/22/20 08:11 Dose: 10 mg Documented by: Fluticasone Propionate (Flonase) 0 gm NASBOTH DAILY [facility] Last Admin: 07/22/20 08:12 Dose: 2 spray Documented by: Hydromorphone HCl (Dilaudid 1 Mg/Ml U/D) 2 mg GTUBE Q4H PRN PRN Reason: PAIN Last Admin: 07/20/20 17:48 Dose: 2 mg Documented by: Ceftriaxone Sodium 1 gm/ (Sodium Chloride) 50 mls @ 100 mls/hr IV Q24H [facility] Last Admin: 07/21/20 18:08 Dose: 100 mls/hr Documented by: Magnesium Sulfate (Magnesium Sulfate In Water 2 Gm/50 Ml) 2 gm in 50 mls @ 25 mls/hr IV Q6H [facility] Stop: 07/23/20 09:59 Last Admin: 07/22/20 08:12 Dose: 25 mls/hr Documented by: Albumin Human (Albumin 25%) 25 gm in 100 mls @ 25 mls/hr IV Q24H [facility] Stop: 07/22/20 19:59 Last Admin: 07/21/20 15:16 Dose: 25 mls/hr Documented by: Dextrose/Sodium Chloride (Dextrose 5%-1/2 Ns) 1,000 mls @ 40 mls/hr IV ASDIRECTED [facility] Last Admin: 07/21/20 09:13 Dose: 40 mls/hr Documented by: Levothyroxine Sodium (Levothyroxine) 75 mcg PO DAILY@0730 [facility] Last Admin: 07/22/20 08:11 Dose: 75 mcg Documented by: Loperamide HCl (Loperamide) 2 mg GTUBE ASDIRECTED PRN PRN Reason: LOOSE STOOL Lorazepam (Ativan) 0.5 - 1 mg IV Q6H PRN PRN Reason: Nausea/Vomiting Montelukast Sodium (Singulair) 10 mg PO BEDTIME [facility] Last Admin: 07/21/20 21:14 Dose: 10 mg Documented by: Carbidopa/Levodopa (Er 25-100mg Ptom) 0 tab PO BEDTIME [facility] Last Admin: 07/21/20 21:16 Dose: 1 tab Documented by: Ondansetron HCl (Zofran Odt) 4 mg PO Q6H PRN PRN Reason: Nausea able to take PO Last Admin: 07/20/20 20:48 Dose: 4 mg Documented by: Ondansetron HCl (Zofran) 4 mg IVPUSH Q4H PRN PRN Reason: Nausea/Vomiting Last Admin: 07/21/20 09:29 Dose: 4 mg Documented by: Pantoprazole Sodium (Protonix Granules) 40 mg GTUBE Q24H [facility] Potassium Phosphate (Potassium Phosphates) 45 mmole .XX BID [facility] Stop: 07/22/20 23:59 Last Admin: 07/22/20 08:10 Dose: 45 mmole Documented by: Pravastatin Sodium (Pravachol) 20 mg PO BEDTIME [facility] Last Admin: 07/21/20 21:17 Dose: 20 mg Documented by: Topiramate (Topamax) 100 mg PO DAILY [facility] Last Admin: 07/22/20 08:11 Dose: 100 mg Documented by: Topiramate (Topamax) 50 mg PO DAILY [facility] Last Admin: 07/22/20 08:11 Dose: 50 mg Documented by: Triamcinolone Acetonide (Triamcinolone Acetonide 0.1% Crm) 0 gm TOP BID PRN PRN Reason: Rash Discontinued Medications Acetaminophen (Tylenol Extra Strength) 500 mg PO BID PRN PRN Reason: Pain (moderate 4-6) Allopurinol (Zyloprim) 150 mg PO DAILY [facility] Last Admin: 07/17/20 10:20 Dose: 150 mg Documented by: Barium Sulfate (E-Z-Hd) 680 gm PO . DIRECTED PRN PRN Reason: RADIOLOGY EXAM Stop: 07/17/20 14:00 Last Admin: 07/17/20 13:09 Dose: 340 gm Documented by: Bupivacaine HCl/Epinephrine Bitart (Marcaine 0.5%/Epinephrine 1:200,000) Confirm Administered Dose 50 ml .ROUTE .STK-MED ONE Stop: 07/20/20 10:27 Carbidopa/Levodopa (Sinemet 25-100 Mg) 1 tab PO QID [facility] Last Admin: 07/16/20 22:11 Dose: 1 tab Documented by: Carbidopa/Levodopa (Sinemet 25-100 Mg) 1 tab PO 0800,1100,1400,1800 [facility] Last Admin: 07/17/20 14:45 Dose: 1 tab Documented by: Carbidopa/Levodopa (Sinemet 25-100 Mg) Confirm Administered Dose 1 tab .ROUTE .STK-MED ONE Stop: 07/16/20 22:10 Last Admin: 07/17/20 10:18 Dose: Not Given Documented by: Carbidopa/Levodopa (Sinemet 25-100 Mg) 1 tab PO 0800,1100,1400,1800 [facility] Last Admin: 07/18/20 10:30 Dose: 1 tab Documented by: Escitalopram Oxalate (Lexapro) 10 mg PO DAILY [facility] Last Admin: 07/17/20 10:19 Dose: 10 mg Documented by: Escitalopram Oxalate (Lexapro) 10 mg PO DAILY [facility] Last Admin: 07/18/20 09:41 Dose: 10 mg Documented by: Fentanyl (Sublimaze) Confirm Administered Dose 100 mcg .ROUTE .STK-MED ONE Stop: 07/20/20 09:50 Fluconazole (Diflucan) 200 mg PO DAILY [facility] Last Admin: 07/17/20 14:51 Dose: Not Given Documented by: Sodium Chloride (Normal Saline) 1,000 mls @ 500 mls/hr IV .BOLUS ONE Stop: 07/16/20 20:29 Last Admin: 07/16/20 18:48 Dose: 500 mls/hr Documented by: Sodium Chloride (Normal Saline) 1,000 mls @ 100 mls/hr IV ASDIRECTED [facility] Last Admin: 07/17/20 03:10 Dose: 100 mls/hr Documented by: Potassium Chloride/Dextrose/Sod Cl (D5 1/2 Ns W/ 20 Meq/L Kcl) 1,000 mls @ 80 mls/hr IV ASDIRECTED [facility] Last Admin: 07/20/20 03:02 Dose: 80 mls/hr Documented by: Potassium Chloride 20 meq/ (Premix) 0 mls @ 50 mls/hr IV Q2H [facility] Stop: 07/20/20 08:01 Last Admin: 07/20/20 05:51 Dose: 50 mls/hr Documented by: Potassium Chloride 20 meq/Lidocaine HCl 2 ml/ Sodium Chloride 112 mls @ 56 mls/hr IV ONETIME ONE Stop: 07/20/20 10:29 Last Admin: 07/20/20 09:34 Dose: 56 mls/hr Documented by: Dextrose/Sodium Chloride (Dextrose 5%-1/2 Ns) 1,000 mls @ 80 mls/hr IV ASDIRECTED [facility] Last Admin: 07/20/20 12:45 Dose: 80 mls/hr Documented by: Potassium Phosphate 15 mmol/ (Premix) 250 mls @ 85 mls/hr IV Q3H [facility] Stop: 07/21/20 01:27 Potassium Phosphate 15 mmol/ (Premix) 250 mls @ 85 mls/hr IV Q3H [facility] Stop: 07/21/20 00:27 Last Admin: 07/21/20 02:13 Dose: 85 mls/hr Documented by: Levothyroxine Sodium (Levothyroxine) 75 mcg PO DAILY@0730 [facility] Last Admin: 07/17/20 10:19 Dose: 75 mcg Documented by: Lidocaine HCl (Xylocaine-Mpf 1%) 5 ml INJECT Q2H [facility] Stop: 07/20/20 08:01 Last Admin: 07/20/20 05:51 Dose: 5 ml Documented by: Magnesium Oxide (Magnesium Oxide) 400 mg PO BID [facility] Last Admin: 07/20/20 15:00 Dose: Not Given Documented by: Montelukast Sodium (Singulair) 10 mg PO BEDTIME [facility] Last Admin: 07/16/20 21:43 Dose: 10 mg Documented by: Montelukast Sodium (Singulair) 10 mg PO BEDTIME [facility] Last Admin: 07/17/20 21:09 Dose: 10 mg Documented by: Ondansetron HCl (Zofran) Confirm Administered Dose 4 mg .ROUTE .STK-MED ONE Stop: 07/20/20 10:24 Pantoprazole Sodium (Protonix) 40 mg PO ACBREAKFAST [facility] Last Admin: 07/17/20 10:18 Dose: 40 mg Documented by: Pantoprazole Sodium (Protonix) 40 mg PO ACBREAKFAST [facility] Last Admin: 07/18/20 07:46 Dose: 40 mg Documented by: Pantoprazole Sodium (Protonix) 40 mg PO ACBREAKFAST [facility] Last Admin: 07/22/20 08:10 Dose: 40 mg Documented by: Allopurinol 300mg (Ptom) 0 each PO DAILY [facility] Last Admin: 07/18/20 09:41 Dose: 1 each Documented by: Levothyroxine 75mcg (Ptom) 0 each PO DAILY@30 [facility] Last Admin: 07/18/20 07:46 Dose: 1 each Documented by: Potassium Acetate (Potassium Acetate) 20 meq .XX TID [facility] Stop: 07/21/20 23:59 Last Admin: 07/21/20 21:16 Dose: 20 meq Documented by: Potassium Chloride (Klor-Con M20) 20 meq PO BID [facility] Last Admin: 07/17/20 10:19 Dose: 20 meq Documented by: Potassium Phosphate (Potassium Phosphates) 30 mmole .XX ONETIME ONE Stop: 07/21/20 12:01 Last Admin: 07/21/20 11:40 Dose: 30 mmole Documented by: Pravastatin Sodium (Pravachol) 20 mg PO BEDTIME [facility] Last Admin: 07/16/20 21:43 Dose: 20 mg Documented by: Pravastatin Sodium (Pravachol) 20 mg PO BEDTIME [facility] Last Admin: 07/17/20 21:09 Dose: 20 mg Documented by: Propofol (Diprivan 20 Ml) Confirm Administered Dose 200 mg .ROUTE .STK-MED ONE Stop: 07/20/20 09:50 Sodium Chloride (Saline Flush) 10 ml FLUSH ASDIRECTED PRN PRN Reason: Keep Vein Open Last Admin: 07/16/20 17:31 Dose: 10 ml Documented by: Topiramate (Topamax) 100 mg PO DAILY [facility] Last Admin: 07/17/20 10:20 Dose: 100 mg Documented by: Topiramate (Topamax) 50 mg PO DAILY [facility] Last Admin: 07/17/20 10:19 Dose: 50 mg Documented by: Topiramate (Topamax) 150 mg PO DAILY [facility] Last Admin: 07/18/20 09:40 Dose: 150 mg Documented by: - Exam Quality Assessment: DVT Prophylaxis General: Alert, Cooperative, Mild Distress. 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 Rating continuous tube feedings, plan is to advance to bolus feedings today -Surgical follow-up per Dr. Mota -Continue tube feedings today as per Dr. Mota and dietary recommendations -Supplement electrolytes as indicated Urinary Tract Infection-manifestations of nausea and diarrhea. Vitals are stable. Urine culture grew out a Klebsiella that is resistant to a fair number of antibiotics but is sensitive to ceftriaxone. -Discontinue ceftriaxone, she has received an adequate course of antibiotic therapy -Physical and occupational therapy for strengthening Parkinson disease-stable other than the possible esophageal dysphagia as discussed above. -continue outpatient medications MAINTENANCE ISSUES -DVT prophylaxis- SCD -GI prophylaxis; PPI -Nutrition; clear liquids, nothing by mouth after midnight CODE STATUS-DNR/DNI ADMISSION STATUS-patient will be transitioned to inpatient status today with severe limitation of oral intake in the need for a feeding tube to be placed to maintain any sort of hydration or nutrition. DISPOSITION-anticipate discharge to home with family after the hospital stay. PRIMARY CARE PROVIDER- Dr. Wright
[2020-07-22] MEDS: Loperamide 1 MG/7.5 ML 7.5 ML UD Cup GTUBE PRN (14:34)
[2020-07-22] MEDS: Dextrose 5%-0.45% NaCl 1,000 ML IV SCH (14:48)
[2020-07-22] MEDS: Ondansetron 4 MG/2 ML SDV IVPUSH PRN ×2 (17:39→21:34)
[2020-07-22] MEDS: Montelukast 10 MG Tab PO SCH (20:55)
[2020-07-22] MEDS: Pravastatin 20 MG Tab PO SCH (20:55)
[2020-07-22] MEDS: LEVODOPA PO SCH (20:55)
[2020-07-22] MEDS: CARBIDOPA PO SCH (20:55)
[2020-07-23] MEDS: Magnesium Sulfate/Water 2 GM/50 ML BAG IV SCH ×2 (01:17→08:13)
[2020-07-23] MEDS: Levothyroxine 25 MCG Tab PO SCH (08:13)
[2020-07-23] MEDS: Pantoprazole 40 MG Delayed-Release Granules 1 Packet GTUBE SCH (08:13)
[2020-07-23] MEDS: Fluticasone Propionate Nasal Spray 16 GM Bottle NASBOTH SCH (08:14)
[2020-07-23] MEDS: Carbidopa/Levodopa 25-100 MG Tab PO SCH ×4 (08:14→18:14)
[2020-07-23] MEDS: Hypromellose 0.3% Ophth Soln 15 ML Bottle EYEBOTH SCH (08:14)
[2020-07-23] MEDS: Escitalopram 10 MG Tab PO SCH (08:15)
[2020-07-23] MEDS: Allopurinol 100 MG Tab PO SCH (08:15)
[2020-07-23] MEDS: Topiramate 25 MG Tab PO SCH (08:15)
[2020-07-23] MEDS: Topiramate 100 MG Tab PO SCH (08:41)
--- NOTE | 2020-07-23 09:24 | PN ---
DATE OF SERVICE: 07/23/2020 SUBJECTIVE: Alysa is getting bolus tube feedings 4 times a day. She had 2 emesis about 100 mL. States that she gets her bolus feeding and then tries to eat and is nauseated and will throw up. Oral intake of 420, two emesis 100 mL each. Urine output, unable to measure. Seven bowel movements. Vital signs remain stable. REVIEW OF SYSTEMS: Remainder of review of systems negative for any pertinent positives and negatives. OBJECTIVE: GENERAL: Alysa Saravia is a pleasant 85-year-old female. She is alert and orientated. VITAL SIGNS: TPR is 96, 56, 16, blood pressure 144/66. HEENT: Negative. NECK: Supple. HEART: Regular rate and rhythm. LUNGS: Clear. ABDOMEN: PEG tube in place. EXTREMITIES: Without peripheral edema. ASSESSMENT: 1. Percutaneous endoscopic gastrostomy tube placement for severe esophageal dysmotility. 2. Date of procedure: 07/20/2020. Surgeon: Tristen Mota MD. PLAN: 1. Continue gastrostomy tube feedings 4 times a day. 2. Wait 30 minutes after percutaneous endoscopic gastrostomy tube feedings before trying to eat. Discussed eating sitting up straight in a chair. 3. Plan to discharge in a.m. with home health care. Gris Fair PA-C /[id number]
--- NOTE | 2020-07-23 10:23 | PCM.PN ---
- General Info Date of Service: 07/23/20 Subjective Update: Ms. Saravia has been stable over the last 24 hours. It does appear that she had some difficulty tolerating this morning's bolus feeding with significant residual after a few hours. She currently denies any abdominal pain or nausea. Functional Status: Reports: Urinating - Review of Systems General: Reports: Weakness, Fatigue. Denies: Fever, Chills Pulmonary: Reports: No Symptoms Cardiovascular: Reports: No Symptoms Gastrointestinal: Reports: No Symptoms - Patient Data Vitals - Most Recent: Last Vital Signs Temp 95.4 F L 07/23/20 07:00 Pulse 58 L 07/23/20 07:00 Resp 18 07/23/20 07:00 BP 123/52 L 07/23/20 07:00 Pulse Ox 98 07/23/20 07:00 Weight - Most Recent: 156 lb I&O - Last 24 Hours: Intake & Output 07/22/20 07/23/20 07/23/20 22:59 06:59 14:59 Intake Total 1230 955 Output Total 200 Balance 1030 955 Lab Results Last 24 Hours: Laboratory Results - last 24 hr 07/23/20 07/23/20 Range/Units 05:09 05:09 WBC 8.0 (4.5-11.0) K/uL RBC 3.05 L (3.30-5.50) M/uL Hgb 9.0 L (12.0-15.0) g/dL Hct 27.8 L (36.0-48.0) % MCV 91 (80-98) fL MCH 30 (27-31) pg MCHC 32 (32-36) % Plt Count 219 (150-400) K/uL Sodium 137 L (140-148) mmol/L Potassium 3.8 (3.6-5.2) mmol/L Chloride 102 (100-108) mmol/L Carbon Dioxide 27 (21-32) mmol/L Anion Gap 11.8 (5.0-14.0) mmol/L BUN 9 (7-18) mg/dL Creatinine 0.6 (0.6-1.0) mg/dL Est Cr Clr Drug Dosing 63.82 mL/min Estimated GFR (MDRD) > 60 (>60) Glucose 95 (74-106) mg/dL Calcium 7.7 L (8.5-10.1) mg/dL Phosphorus 2.9 (2.5-4.9) mg/dL Total Bilirubin 0.3 (0.2-1.0) mg/dL AST 9 L (15-37) U/L ALT 8 L (12-78) U/L Alkaline Phosphatase 70 (46-116) U/L NT-Pro-B Natriuret Pep 1431 H (5-450) pg/mL Total Protein 5.7 L (6.4-8.2) g/dL Albumin 3.5 (3.4-5.0) g/dL Globulin 2.2 L (2.3-3.5) g/dL Albumin/Globulin Ratio 1.6 (1.2-2.2) Med Orders - Current: Current Medications Acetaminophen (Tylenol Extra Strength) 500 mg PO Q6H PRN PRN Reason: Pain (moderate 4-6) Albuterol (Proventil Neb Soln) 2.5 mg NEB Q4H PRN PRN Reason: Shortness Of Breath/wheezing Allopurinol (Zyloprim) 150 mg PO DAILY [facility] Last Admin: 07/23/20 08:15 Dose: 150 mg Documented by: Artificial Tears (Genteal Mild To Moderate Ophth Soln) 0 ml EYEBOTH DAILY [facility] Last Admin: 07/23/20 08:14 Dose: 1 drop Documented by: Carbidopa/Levodopa (Sinemet 25-100 Mg) 1 tab PO 0800,1100,1400,1800 [facility] Last Admin: 07/23/20 08:14 Dose: 1 tab Documented by: Cyclobenzaprine HCl (Flexeril) 10 mg PO TID PRN PRN Reason: Muscle Spasm Escitalopram Oxalate (Lexapro) 10 mg PO DAILY [facility] Last Admin: 07/23/20 08:15 Dose: 10 mg Documented by: Fluticasone Propionate (Flonase) 0 gm NASBOTH DAILY [facility] Last Admin: 07/23/20 08:14 Dose: 1 spray Documented by: Hydromorphone HCl (Dilaudid 1 Mg/Ml U/D) 2 mg GTUBE Q4H PRN PRN Reason: PAIN Last Admin: 07/20/20 17:48 Dose: 2 mg Documented by: Levothyroxine Sodium (Levothyroxine) 75 mcg PO DAILY@0730 [facility] Last Admin: 07/23/20 08:13 Dose: 75 mcg Documented by: Loperamide HCl (Loperamide) 2 mg GTUBE ASDIRECTED PRN PRN Reason: LOOSE STOOL Last Admin: 07/22/20 14:34 Dose: 2 mg Documented by: Lorazepam (Ativan) 0.5 - 1 mg IV Q6H PRN PRN Reason: Nausea/Vomiting Montelukast Sodium (Singulair) 10 mg PO BEDTIME [facility] Last Admin: 07/22/20 20:55 Dose: 10 mg Documented by: Carbidopa/Levodopa (Er 25-100mg Ptom) 0 tab PO BEDTIME [facility] Last Admin: 07/22/20 20:55 Dose: 1 tab Documented by: Ondansetron HCl (Zofran Odt) 4 mg PO Q6H PRN PRN Reason: Nausea able to take PO Last Admin: 07/20/20 20:48 Dose: 4 mg Documented by: Ondansetron HCl (Zofran) 4 mg IVPUSH Q4H PRN PRN Reason: Nausea/Vomiting Last Admin: 07/22/20 21:34 Dose: 4 mg Documented by: Pantoprazole Sodium (Protonix Granules) 40 mg GTUBE Q24H [facility] Last Admin: 07/23/20 08:13 Dose: 40 mg Documented by: Pravastatin Sodium (Pravachol) 20 mg PO BEDTIME [facility] Last Admin: 07/22/20 20:55 Dose: 20 mg Documented by: Topiramate (Topamax) 100 mg PO DAILY [facility] Last Admin: 07/23/20 08:41 Dose: 100 mg Documented by: Topiramate (Topamax) 50 mg PO DAILY [facility] Last Admin: 07/23/20 08:15 Dose: 50 mg Documented by: Triamcinolone Acetonide (Triamcinolone Acetonide 0.1% Crm) 0 gm TOP BID PRN PRN Reason: Rash Discontinued Medications Acetaminophen (Tylenol Extra Strength) 500 mg PO BID PRN PRN Reason: Pain (moderate 4-6) Allopurinol (Zyloprim) 150 mg PO DAILY [facility] Last Admin: 07/17/20 10:20 Dose: 150 mg Documented by: Barium Sulfate (E-Z-Hd) 680 gm PO . DIRECTED PRN PRN Reason: RADIOLOGY EXAM Stop: 07/17/20 14:00 Last Admin: 07/17/20 13:09 Dose: 340 gm Documented by: Bupivacaine HCl/Epinephrine Bitart (Marcaine 0.5%/Epinephrine 1:200,000) Confirm Administered Dose 50 ml .ROUTE .STK-MED ONE Stop: 07/20/20 10:27 Carbidopa/Levodopa (Sinemet 25-100 Mg) 1 tab PO QID [facility] Last Admin: 07/16/20 22:11 Dose: 1 tab Documented by: Carbidopa/Levodopa (Sinemet 25-100 Mg) 1 tab PO 0800,1100,1400,1800 [facility] Last Admin: 07/17/20 14:45 Dose: 1 tab Documented by: Carbidopa/Levodopa (Sinemet 25-100 Mg) Confirm Administered Dose 1 tab .ROUTE .STK-MED ONE Stop: 07/16/20 22:10 Last Admin: 07/17/20 10:18 Dose: Not Given Documented by: Carbidopa/Levodopa (Sinemet 25-100 Mg) 1 tab PO 0800,1100,1400,1800 [facility] Last Admin: 07/18/20 10:30 Dose: 1 tab Documented by: Escitalopram Oxalate (Lexapro) 10 mg PO DAILY [facility] Last Admin: 07/17/20 10:19 Dose: 10 mg Documented by: Escitalopram Oxalate (Lexapro) 10 mg PO DAILY [facility] Last Admin: 07/18/20 09:41 Dose: 10 mg Documented by: Fentanyl (Sublimaze) Confirm Administered Dose 100 mcg .ROUTE .STK-MED ONE Stop: 07/20/20 09:50 Fluconazole (Diflucan) 200 mg PO DAILY [facility] Last Admin: 07/17/20 14:51 Dose: Not Given Documented by: Sodium Chloride (Normal Saline) 1,000 mls @ 500 mls/hr IV .BOLUS ONE Stop: 07/16/20 20:29 Last Admin: 07/16/20 18:48 Dose: 500 mls/hr Documented by: Ceftriaxone Sodium 1 gm/ (Sodium Chloride) 50 mls @ 100 mls/hr IV Q24H [facility] Last Admin: 07/21/20 18:08 Dose: 100 mls/hr Documented by: Sodium Chloride (Normal Saline) 1,000 mls @ 100 mls/hr IV ASDIRECTED [facility] Last Admin: 07/17/20 03:10 Dose: 100 mls/hr Documented by: Potassium Chloride/Dextrose/Sod Cl (D5 1/2 Ns W/ 20 Meq/L Kcl) 1,000 mls @ 80 mls/hr IV ASDIRECTED [facility] Last Admin: 07/20/20 03:02 Dose: 80 mls/hr Documented by: Potassium Chloride 20 meq/ (Premix) 0 mls @ 50 mls/hr IV Q2H [facility] Stop: 07/20/20 08:01 Last Admin: 07/20/20 05:51 Dose: 50 mls/hr Documented by: Potassium Chloride 20 meq/Lidocaine HCl 2 ml/ Sodium Chloride 112 mls @ 56 mls/hr IV ONETIME ONE Stop: 07/20/20 10:29 Last Admin: 07/20/20 09:34 Dose: 56 mls/hr Documented by: Dextrose/Sodium Chloride (Dextrose 5%-1/2 Ns) 1,000 mls @ 80 mls/hr IV ASDIRECTED [facility] Last Admin: 07/20/20 12:45 Dose: 80 mls/hr Documented by: Potassium Phosphate 15 mmol/ (Premix) 250 mls @ 85 mls/hr IV Q3H [facility] Stop: 07/21/20 01:27 Magnesium Sulfate (Magnesium Sulfate In Water 2 Gm/50 Ml) 2 gm in 50 mls @ 25 mls/hr IV Q6H [facility] Stop: 07/23/20 09:59 Last Admin: 07/23/20 08:13 Dose: 25 mls/hr Documented by: Albumin Human (Albumin 25%) 25 gm in 100 mls @ 25 mls/hr IV Q24H [facility] Stop: 07/22/20 19:59 Last Admin: 07/22/20 17:01 Dose: 25 mls/hr Documented by: Potassium Phosphate 15 mmol/ (Premix) 250 mls @ 85 mls/hr IV Q3H [facility] Stop: 07/21/20 00:27 Last Admin: 07/21/20 02:13 Dose: 85 mls/hr Documented by: Dextrose/Sodium Chloride (Dextrose 5%-1/2 Ns) 1,000 mls @ 40 mls/hr IV ASDIRECTED [facility] Last Admin: 07/22/20 14:48 Dose: 40 mls/hr Documented by: Levothyroxine Sodium (Levothyroxine) 75 mcg PO DAILY@0730 [facility] Last Admin: 07/17/20 10:19 Dose: 75 mcg Documented by: Lidocaine HCl (Xylocaine-Mpf 1%) 5 ml INJECT Q2H [facility] Stop: 07/20/20 08:01 Last Admin: 07/20/20 05:51 Dose: 5 ml Documented by: Magnesium Oxide (Magnesium Oxide) 400 mg PO BID [facility] Last Admin: 07/20/20 15:00 Dose: Not Given Documented by: Montelukast Sodium (Singulair) 10 mg PO BEDTIME [facility] Last Admin: 07/16/20 21:43 Dose: 10 mg Documented by: Montelukast Sodium (Singulair) 10 mg PO BEDTIME [facility] Last Admin: 07/17/20 21:09 Dose: 10 mg Documented by: Ondansetron HCl (Zofran) Confirm Administered Dose 4 mg .ROUTE .STK-MED ONE Stop: 07/20/20 10:24 Pantoprazole Sodium (Protonix) 40 mg PO ACBREAKFAST [facility] Last Admin: 07/17/20 10:18 Dose: 40 mg Documented by: Pantoprazole Sodium (Protonix) 40 mg PO ACBREAKFAST [facility] Last Admin: 07/18/20 07:46 Dose: 40 mg Documented by: Pantoprazole Sodium (Protonix) 40 mg PO ACBREAKFAST [facility] Last Admin: 07/22/20 08:10 Dose: 40 mg Documented by: Allopurinol 300mg (Ptom) 0 each PO DAILY [facility] Last Admin: 07/18/20 09:41 Dose: 1 each Documented by: Levothyroxine 75mcg (Ptom) 0 each PO DAILY@0730 [facility] Last Admin: 07/18/20 07:46 Dose: 1 each Documented by: Potassium Acetate (Potassium Acetate) 20 meq .XX TID [facility] Stop: 07/21/20 23:59 Last Admin: 07/21/20 21:16 Dose: 20 meq Documented by: Potassium Chloride (Klor-Con M20) 20 meq PO BID [facility] Last Admin: 07/17/20 10:19 Dose: 20 meq Documented by: Potassium Phosphate (Potassium Phosphates) 30 mmole .XX ONETIME ONE Stop: 07/21/20 12:01 Last Admin: 07/21/20 11:40 Dose: 30 mmole Documented by: Potassium Phosphate (Potassium Phosphates) 45 mmole .XX BID [facility] Stop: 07/22/20 23:59 Last Admin: 07/22/20 20:54 Dose: 45 mmole Documented by: Pravastatin Sodium (Pravachol) 20 mg PO BEDTIME [facility] Last Admin: 07/16/20 21:43 Dose: 20 mg Documented by: Pravastatin Sodium (Pravachol) 20 mg PO BEDTIME [facility] Last Admin: 07/17/20 21:09 Dose: 20 mg Documented by: Propofol (Diprivan 20 Ml) Confirm Administered Dose 200 mg .ROUTE .STK-MED ONE Stop: 07/20/20 09:50 Sodium Chloride (Saline Flush) 10 ml FLUSH ASDIRECTED PRN PRN Reason: Keep Vein Open Last Admin: 07/16/20 17:31 Dose: 10 ml Documented by: Topiramate (Topamax) 100 mg PO DAILY [facility] Last Admin: 07/17/20 10:20 Dose: 100 mg Documented by: Topiramate (Topamax) 50 mg PO DAILY [facility] Last Admin: 07/17/20 10:19 Dose: 50 mg Documented by: Topiramate (Topamax) 150 mg PO DAILY [facility] Last Admin: 07/18/20 09:40 Dose: 150 mg Documented by: - Exam General: Alert, Cooperative, No Acute Distress. No: Oriented Lungs: Clear to Auscultation, Normal Respiratory Effort Cardiovascular: Regular Rate, Regular Rhythm, No Murmurs GI/Abdominal Exam: Soft, Non-Tender, No Organomegaly, No Distention Extremities: Non-Tender, No Pedal Edema Sepsis Event Note - Evaluation Sepsis Screening Result: No Definite Risk - Focused Exam Vital Signs: Vital Signs Temp Pulse Resp BP Pulse Ox 07/23/20 07:00 95.4 F L 58 L 18 123/52 L 98 07/23/20 05:00 96.0 F L 56 L 16 144/66 H 98 07/22/20 22:51 96.0 F L 65 16 134/72 98 - Problem List Review Problem List Initiated/Reviewed/Updated: Yes - My Orders Last 24 Hours: My Active Orders 07/23/20 10:20 Convert IV to Saline Lock [OM.PC] Routine - Plan Plan:: ASSESSMENT AND PLAN 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 Converted to bolus feedings yesterday, high residual following this morning's feedings -Surgical follow-up per Dr. Mota -Continue tube feedings today as per Dr. Mota and dietary recommendations -Supplement electrolytes as indicated Urinary Tract Infection -she has received an adequate course of antibiotic therapy Parkinson disease-stable other than the possible esophageal dysphagia as discussed above. -continue outpatient medications MAINTENANCE ISSUES -DVT prophylaxis- SCD -GI prophylaxis; PPI -Nutrition; clear liquids, nothing by mouth after midnight CODE STATUS-DNR/DNI ADMISSION STATUS-patient will be transitioned to inpatient status today with severe limitation of oral intake in the need for a feeding tube to be placed to maintain any sort of hydration or nutrition. DISPOSITION-anticipate discharge to home with family after the hospital stay. PRIMARY CARE PROVIDER- Dr. Wright
[2020-07-23] MEDS: Ondansetron 4 MG/2 ML SDV IVPUSH PRN (11:46)
[2020-07-23] MEDS: Loperamide 1 MG/7.5 ML 7.5 ML UD Cup GTUBE PRN (12:23)
[2020-07-23] MEDS: CARBIDOPA PO SCH (20:52)
[2020-07-23] MEDS: LEVODOPA PO SCH (20:52)
[2020-07-23] MEDS: Montelukast 10 MG Tab PO SCH (20:53)
[2020-07-23] MEDS: Pravastatin 20 MG Tab PO SCH (20:53)
[2020-07-24 07:37] VITALS: BP 141/57; PULSE 76
--- NOTE | 2020-07-24 09:14 | DISCH ---
ADMISSION DIAGNOSES: 1. Dehydration. 2. Nausea and vomiting. 3. Urinary tract infection. 4. Parkinson disease. DISCHARGE DIAGNOSES: 1. Esophageal dysmotility secondary to Parkinson disease. 2. Percutaneous endoscopic gastrostomy tube placement for severe esophageal dysmotility. Date of procedure: 07/20/2020. Surgeon: Tristen Mota MD. 3. Gastrostomy tube feedings. HISTORY: Alysa Saravia is a pleasant 85-year-old female who was admitted on 07/16/2020 and diagnosed with severe esophageal dysmotility. After preoperative evaluation and discussion of possible risks and possible complications, she wished to proceed with surgical procedure. HOSPITAL COURSE: Alysa had her surgery on 07/20/2020. She had no operative complications. On postoperative day #1, she was started on continuous gastrostomy tube feedings. On postoperative day #2, she was changed to bolus feedings 4 times a day. She tolerated the bolus feedings well. The nausea did subside. Vital signs remained stable. Oral intake in addition to the 4 cans of tube feedings per day was 420. Prior to that, it was 820. She did not have any emesis, and last bowel movement was 07/24/2020. Alysa denied pain. She is alert and orientated, and ready to be discharged on 07/24/2020. PHYSICAL EXAMINATION: GENERAL: Alysa Saravia is a pleasant 85-year-old female. VITAL SIGNS: Height is 5 feet 4.96 inches, weight is 156 pounds, BMI is 26. TPR at 02:27 is 96, 57, 16, blood pressure 120/48. HEENT: Negative. NECK: Supple. HEART: Regular rate and rhythm. LUNGS: Clear. ABDOMEN: Gastrostomy tube in place. There is dressing around the gastrostomy tube that is clean and dry. EXTREMITIES: Without peripheral edema. DISPOSITION: Discharged to home with home health care. CONDITION: Stable and improving. FOLLOWUP: Appointment with Tristen Mota MD, 08/05/2020 at 11 a.m. DISCHARGE INSTRUCTIONS: Gastrostomy tube feedings 4 times a day. To have CBC, CMP, mag, phos lab tests to be checked every Monday starting on 07/28/2020. Fax results to Tristen Mota MD, at [facility]. Wound incision care: Keep operative site clean and dry. Notify provider if any fever, increased pain, swelling, redness, drainage, nausea, or vomiting. DIET: Full liquid diet to usual diet as tolerated, soft foods to avoid choking. Drink 8 to 10 glasses of water a day. ACTIVITY: No lifting greater than 10 pounds for 2 weeks. Other activity: Walk around your home about 6 times daily. Driving: Do not drive for 1 week. SPECIAL INSTRUCTION: 1. Use incentive spirometer 10 times every hour while awake for 1 week. 2. Check CBC, CMP, mag, phos, lab test every Monday starting 07/28/2020 and fax results to Tristen Mota MD, at [facility]. MEDICATIONS: To resume all home medications; 1. Pravastatin 20 mg at bedtime. 2. Singulair 10 mg at bedtime. 3. Flexeril 10 mg p.o. t.i.d. p.r.n. 4. Carbidopa-levodopa ER 25-100 one tablet at bedtime. 5. Acetaminophen 500 mg p.o. b.i.d. p.r.n. 6. Ondansetron ODT 4 mg p.o. p.r.n. every 4 hours for nausea. 7. Zyloprim 150 mg p.o. daily. 8. Triamcinolone acetonide 0.1% 1 applicator topical twice daily. 9. Topiramate 150 mg daily. 10.Klor-Con 20 mEq p.o. b.i.d. 11.Protonix 40 mg p.o. daily. 12.Levothyroxine 75 mcg p.o. daily. 13.Flonase 2 sprays in each nostril daily. 14.Diflucan 200 mg p.o. daily. 15.Lexapro 100 mg p.o. daily. 16.Artificial Tears 1 drop in each eye daily. 17.Carbidopa-levodopa (Sinemet) 25-100 mg tablet 1 tablet p.o. q.i.d. /[id number]
[2020-07-24] MEDS: Ondansetron 4 MG Tab.DIS PO PRN (09:46)
[2020-07-24] MEDS: Topiramate 100 MG Tab PO SCH (09:51)
[2020-07-24] MEDS: Allopurinol 100 MG Tab PO SCH (09:51)
[2020-07-24] MEDS: Hypromellose 0.3% Ophth Soln 15 ML Bottle EYEBOTH SCH (09:51)
[2020-07-24] MEDS: Pantoprazole 40 MG Delayed-Release Granules 1 Packet GTUBE SCH (09:51)
[2020-07-24] MEDS: Fluticasone Propionate Nasal Spray 16 GM Bottle NASBOTH SCH (09:51)
[2020-07-24] MEDS: Levothyroxine 25 MCG Tab PO SCH (09:51)
[2020-07-24] MEDS: Topiramate 25 MG Tab PO SCH (09:51)
[2020-07-24] MEDS: Carbidopa/Levodopa 25-100 MG Tab PO SCH (09:51)
[2020-07-24] MEDS: Escitalopram 10 MG Tab PO SCH (09:51)
--- NOTE | 2020-07-26 15:30 | PN ---
DATE OF SERVICE: 07/20/2020 The patient underwent a percutaneous gastrostomy tube placement today. We will have her take some sips of clear liquids, but otherwise, the G-tube will be placed to dependent drainage. We will get a Pharmacy consult to see what medications she is on that can be dissolving given as a liquid form. Dietary consult regarding tube feeding management. She would be probably best served long-term with a bolus feeding where she is not quite up to the tube for the most part. Her albumin is somewhat low, and we will give her over the next 3 days 25 g of albumin, which should help somewhat with regard to the GI tract absorption avoiding problems with diarrhea. Her potassium, phosphate, and magnesium were all somewhat low. Those will be supplemented. We will check some labs in the morning. For pain medicine, we will give her some Tylenol as scheduled and Dilaudid in liquid version through the G-tube on a p.r.n. basis. She will likely start continuous feedings tomorrow and if that is tolerated switch over in the next ensuing days to a bolus-type feeding regimen. Tristen Mota MD /[id number]
--- NOTE | 2020-07-26 17:57 | OR ---
DATE OF PROCEDURE: 07/20/2020 SURGEON: Tristen Mota MD PREOPERATIVE DIAGNOSIS: Dysphagia and emesis associated with severe esophageal dysmotility. POSTOPERATIVE DIAGNOSES: Dysphagia and emesis associated with severe esophageal dysmotility. OPERATIVE PROCEDURE: Percutaneous endoscopic gastrostomy tube placement. ANESTHESIA: Local plus IV sedation. [employer] OPERATOR: NATALYA Sweeney. INDICATIONS FOR PROCEDURE: This is an 85-year-old female presenting with progressive worsening problems with severe esophageal dysmotility. She has a small Zenker's diverticulum, but the primary problem appears to be related to esophageal dysmotility, and after discussion, the plan is to proceed with a gastrostomy tube placement. The patient and her family were involved in the preoperative discussion, and potential risks were reviewed, and they wished to proceed. DETAILS OF PROCEDURE: The patient was taken to the operating room and placed in a semi- sitting position. IV sedation was administered after which the abdomen was prepped and draped. The upper GI endoscope was then passed orally through the length of the esophagus and into the stomach. There was some retained solid and liquid food within the distal esophagus, but without stricturing, again confirming primary problem was esophageal dysmotility. The stomach was then inflated, and a light in the left subcostal area just to the left of the midline was identified, and the skin overlying this anesthetized with 1% lidocaine. Stomach was then cannulated with a 14-[place]amese Intracath, and a wire placed in the stomach. The latter was grasped with biopsy forceps, and as the wire was into the stomach externally, the gastroscope was pulled back. A 1 cm incision where the wire had entered the abdominal wall was then made, and the wire was connected to the gastrostomy tube insertion complex, which was then pulled down through the mouth, pulling the gastrostomy tube snugly up against the abdominal wall where it was secured and sutured with a 2-0 nylon stitch and placed to dependent drainage. Followup upper endoscopy showed good placement of the tube with no complications. The patient was taken to the recovery room in satisfactory condition. Tristen Mota MD /[id number]
== END 2020-07-24 09:55 | disposition home health service (06) | DRG 392 ==
LOC: JP.ED 16:13 → JP.MS 18:48
PROVIDERS: ADMIT Internal Medicine; ATTEND Hospitalist
PROC: 0DH64UZ Insertion of Feeding Device into Stomach, Percutaneous Endoscopic Approach (ICD-10-PCS; principal; 2020-07-20)
DX: K22.4 Dyskinesia of esophagus (principal); R06.02 Shortness of breath; N39.0 Urinary tract infection, site not specified; E87.1 Hypo-osmolality and hyponatremia; K22.5 Diverticulum of esophagus, acquired; G20 Parkinson's disease; D86.0 Sarcoidosis of lung; R11.14 Bilious vomiting; R19.7 Diarrhea, unspecified; E86.0 Dehydration; H54.7 Unspecified visual loss; Z66 Do not resuscitate; K58.0 Irritable bowel syndrome with diarrhea; I10 Essential (primary) hypertension; H91.90 Unspecified hearing loss, unspecified ear; E78.00 Pure hypercholesterolemia, unspecified; K44.9 Diaphragmatic hernia without obstruction or gangrene; B96.1 Klebsiella pneumoniae [K. pneumoniae] as the cause of diseases classified elsewhere; K58.9 Irritable bowel syndrome, unspecified; J44.9 Chronic obstructive pulmonary disease, unspecified; K57.90 Diverticulosis of intestine, part unspecified, without perforation or abscess without bleeding; Z91.09 Other allergy status, other than to drugs and biological substances; Z98.49 Cataract extraction status, unspecified eye; Z90.49 Acquired absence of other specified parts of digestive tract; F32.9 Major depressive disorder, single episode, unspecified; F41.9 Anxiety disorder, unspecified; E03.9 Hypothyroidism, unspecified; Z85.42 Personal history of malignant neoplasm of other parts of uterus; Z88.4 Allergy status to anesthetic agent; Z91.041 Radiographic dye allergy status; Z91.02 Food additives allergy status; Z88.5 Allergy status to narcotic agent; Z88.8 Allergy status to other drugs, medicaments and biological substances; Z91.048 Other nonmedicinal substance allergy status; Z79.890 Hormone replacement therapy; Z79.899 Other long term (current) drug therapy
CPT/HCPCS: 36415; 71045; 71045-26; 74176; 74220; 74220-26; 80048; 80053; 81001; 83550; 83735; 83880; 84100; 85025; 85027; 87086; 87088; 87186; 92610-GN; 93005; 93010; 97110-GO; 97110-GP; 97116-GP; 97162-GP; 97165-GO; 97530-GP; 97535-GP; 99285; 99285-25; A9270-GY; J0696; J2405; J2704; J3010; J3475; J3480; J3490; J7030; J7042; P9047

== ENCOUNTER 2020-08-02 12:06 | Emergency (ER) | payer MEDICARE, BC ==
[2020-08-02 12:28] VITALS: BP 153/86; PULSE 57
--- NOTE | 2020-08-02 12:45 | EDM.PDOC ---
ED HPI GENERAL MEDICAL PROBLEM - General Chief Complaint: Respiratory Problem Stated Complaint: BRONCHITIS? Time Seen by Provider: 08/02/20 12:37 Source of Information: Reports: Patient, Family, RN Notes Reviewed History Limitations: Reports: No Limitations - History of Present Illness INITIAL COMMENTS - FREE TEXT/NARRATIVE: 85-year-old female presents emergency department today concerned about developing bronchitis, she states she has been short of breath has been going on for about 3 to 4 days coughing still white sputum production no fevers she does have extensive secondhand smoke history was 4 to 5 packs/day - Related Data Allergies Allergy/AdvReac Type Severity Reaction Status Date / Time albuterol Allergy Cannot Verified 08/02/20 12:18 Remember codeine Allergy Swelling Verified 08/02/20 12:18 fish oil Allergy Rash Verified 08/02/20 12:18 Iodinated Contrast Media Allergy Hives Verified 08/02/20 12:18 iodine Allergy Swelling Verified 08/02/20 12:18 lidocaine Allergy Rash Verified 08/02/20 12:18 povidone-iodine Allergy Swelling Verified 08/02/20 12:18 [From Betadine] soap [From Betadine] Allergy Swelling Verified 08/02/20 12:18 valacyclovir HCl Allergy Rash Verified 08/02/20 12:18 [From Valtrex] fentanyl AdvReac Nausea Verified 08/02/20 12:18 morphine AdvReac Hallucinati Verified 08/02/20 12:18 ons oxycodone AdvReac Hallucinati Verified 08/02/20 12:18 ons shrimp flavor Allergy Rash Uncoded 08/02/20 12:18 vitamins- minerals Allergy Nausea Uncoded 08/02/20 12:18 Home Meds: Home Meds Acetaminophen [Pain Reliever] 500 mg PO BID PRN 10/15/13 [History] Escitalopram [Lexapro] 10 mg PO DAILY 10/15/13 [History] Pravastatin Sodium 20 mg PO BEDTIME 10/15/13 [History] Topiramate 150 mg PO DAILY 10/15/13 [History] Montelukast [Singulair] 10 mg PO BEDTIME 10/28/14 [History] Triamcinolone Acetonide [Kenalog 0.1% Crm] 1 applic TOP BID PRN 12/04/14 [History] Fluticasone Propionate [Flonase Allergy Relief] 2 spray SHANTEL DAILY 07/30/19 [History] Cyclobenzaprine [Flexeril] 10 mg PO TID PRN 01/07/20 [History] Levothyroxine Sodium [Synthroid] 75 mcg PO DAILY 01/07/20 [History] Pantoprazole Sodium [Protonix] 40 mg PO DAILY 01/07/20 [History] Carbidopa/Levodopa [Sinemet 25-100 mg Tablet] 1 tab PO QID 05/20/20 [History] Potassium Chloride [Klor-Con M20] 20 meq PO BID 05/20/20 [History] allopurinoL [Zyloprim] 150 mg PO DAILY 05/20/20 [History] Carboxymethylcellulose Sodium [Artificial Tears] 1 drop EYEBOTH DAILY 07/07/20 [History] Carbidopa/Levodopa [Carbidopa-Levo ER 25-100] 1 tab PO BEDTIME 07/09/20 [History] Fluconazole [Diflucan] 200 mg PO DAILY 07/09/20 [History] Ondansetron [Ondansetron ODT] 4 mg PO ASDIRECTED 07/16/20 [History] Past Medical History HEENT History: Reports: Hard of Hearing, Other (See Below) Other HEENT History: SORE LEFT NARE, wears glasses Cardiovascular History: Reports: Arrhythmia, High Cholesterol, Hypertension, Other (See Below) Other Cardiovascular History: LOW HEART RATE Respiratory History: Reports: Asthma, COPD, SOB Gastrointestinal History: Reports: Cholelithiasis, Chronic Diarrhea, Diverticulosis, Irritable Bowel Syndrome, Other (See Below) Other Gastrointestinal History: dumping syndrome, colitis Genitourinary History: Reports: Pyelonephritis, UTI, Recurrent 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: Musculoskeletal History: Reports: Fracture, Other (See Below) Other Musculoskeletal History: H/O BROKEN TAILBONE AND LEFT LOWER LEG FX Neurological History: Reports: Other (See Below) Other Neuro History: tremors, Parkinson's disease Psychiatric History: Reports: Anxiety, Depression Endocrine/Metabolic History: Reports: Hypothyroidism, Other (See Below) Other Endocrine/Metabolic History: thyroid disease Oncologic (Cancer) History: Reports: Uterine Dermatologic History: Reports: Other (See Below) Other Dermatologic History: rash - Infectious Disease History Infectious Disease History: Reports: Chicken Pox, Measles, Mumps, Shingles - Past Surgical History HEENT Surgical History: Reports: Cataract Surgery Other Cardiovascular Surgeries/Procedures: holter monitor placed in [place] today 10/11/2019, loop recorder (heart monitor) GI Surgical History: Reports: Cholecystectomy, Colonoscopy, EGD, Esophageal Dilatation, Hernia Repair/Other, Other (See Below) Other GI Surgeries/Procedures: bile duct removed. egd dilation Jul 09 2020 Female Surgical History: Reports: Hysterectomy Social & Family History - Family History Family Medical History: No Pertinent Family History - Tobacco Use Tobacco Use Status *Q: Never Tobacco User - Caffeine Use Caffeine Use: Reports: None Other Caffeine Use: one cappucino in the morning - Recreational Drug Use Recreational Drug Use: No - Living Situation & Occupation Living situation: Reports: , with Family (lives with Son Kyler and family.) ED ROS GENERAL - Review of Systems Review Of Systems: See Below Constitutional: Denies: Fever, Chills HEENT: Reports: No Symptoms Respiratory: Reports: Shortness of Breath, Cough, Sputum. Denies: Wheezing Cardiovascular: Reports: Dyspnea on Exertion GI/Abdominal: Reports: No Symptoms ED EXAM, GENERAL - Physical Exam Exam: See Below Exam Limited By: No Limitations General Appearance: Alert, WD/WN, No Apparent Distress Respiratory/Chest: No Respiratory Distress, No Accessory Muscle Use, Chest Non- Tender, Decreased Breath Sounds. No: Crackles, Rhonchi Cardiovascular: Regular Rate, Rhythm, No Murmur Course - Vital Signs Last Recorded V/S: Last Vital Signs Temp 97.6 F 08/02/20 12:27 Pulse 57 L 08/02/20 12:27 Resp 16 08/02/20 12:27 BP 153/86 H 08/02/20 12:27 Pulse Ox 97 08/02/20 12:27 Departure - Departure Time of Disposition: 12:44 Disposition: Home, Self-Care 01 Condition: Fair Clinical Impression: Bronchitis - Discharge Information Instructions: Acute Bronchitis, Adult, [id number] Referrals: Andrzej Wright MD [Primary Care Provider] - Additional Instructions: Take full course of antibiotics, take full course of prednisone, please followup with your primary care provider in 3 to 5 days days if not better, please call return to the emergency department with worsening of symptoms. Sepsis Event Note (ED) - Evaluation Sepsis Screening Result: No Definite Risk - Focused Exam Vital Signs: Vital Signs Temp Pulse Resp BP Pulse Ox 08/02/20 12:27 97.6 F 57 L 16 153/86 H 97 - Assessment/Plan Plan: Assessment Acuity = acute Site and laterality = bronchitis suspicious for underlying COPD Etiology = unknown Manifestations = dyspnea Location of injury = Home Lab values = none Plan Elected to treat empirically azithromycin per package directions, prednisone 20 mg once a day for 5 days follow-up primary care next 3 to 5 days for reevaluation if no improvement This note was dictated using [employer] voice recognition software please call with any questions on syntax or grammar.
== END 2020-08-02 12:53 | disposition home or self-care (01) ==
LOC: JP.ED 12:06
DX: J40 Bronchitis, not specified as acute or chronic (principal); E78.00 Pure hypercholesterolemia, unspecified; I10 Essential (primary) hypertension; J44.9 Chronic obstructive pulmonary disease, unspecified; G20 Parkinson's disease; E03.9 Hypothyroidism, unspecified; Z88.8 Allergy status to other drugs, medicaments and biological substances; Z88.5 Allergy status to narcotic agent; Z91.041 Radiographic dye allergy status; Z88.4 Allergy status to anesthetic agent; Z91.013 Allergy to seafood; Z79.899 Other long term (current) drug therapy
CPT/HCPCS: 99283

== ENCOUNTER 2020-10-15 09:03 | Emergency (ER) | payer MEDICARE, BC ==
[2020-10-15 09:17] VITALS: PULSE 66
[2020-10-15 09:18] VITALS: BP 151/58
[2020-10-15] MEDS ORDERED: Doxycycline 100 MG Cap PO ONE (09:43)
--- NOTE | 2020-10-15 09:51 | EDM.PDOC ---
ED HPI GENERAL MEDICAL PROBLEM - General Chief Complaint: Genitourinary Problem Stated Complaint: POSSIBLE UTI Time Seen by Provider: 10/15/20 09:35 Source of Information: Reports: Patient, Old Records, RN History Limitations: Reports: No Limitations - History of Present Illness INITIAL COMMENTS - FREE TEXT/NARRATIVE: 85 yo female with a pHx of recurrent UTI's presents with small, frequent voids for the past 3 days. No dysuria or fever. Several recent urine cultures grew Klebsiella. Onset: Gradual Onset Date: 10/12/20 Duration: Day(s):, Constant Location: Reports: Pelvis Quality: Reports: Other (pain not reported) Severity: Moderate Improves with: Reports: None Worsens with: Reports: None Context: Reports: Other (See HPI) Associated Symptoms: Reports: No Other Symptoms. Denies: Fever/Chills, Nausea/Vomiting Treatments SUPERVISOR PUMPING: Reports: Other (see below) (none) - Related Data Allergies Allergy/AdvReac Type Severity Reaction Status Date / Time albuterol Allergy Cannot Verified 10/15/20 09:20 Remember codeine Allergy Swelling Verified 10/15/20 09:20 fish oil Allergy Rash Verified 10/15/20 09:20 Iodinated Contrast Media Allergy Hives Verified 10/15/20 09:20 iodine Allergy Swelling Verified 10/15/20 09:20 lidocaine Allergy Rash Verified 10/15/20 09:20 povidone-iodine Allergy Swelling Verified 10/15/20 09:20 [From Betadine] soap [From Betadine] Allergy Swelling Verified 10/15/20 09:20 valacyclovir HCl Allergy Rash Verified 10/15/20 09:20 [From Valtrex] fentanyl AdvReac Nausea Verified 10/15/20 09:20 morphine AdvReac Hallucinati Verified 10/15/20 09:20 ons oxycodone AdvReac Hallucinati Verified 10/15/20 09:20 ons shrimp flavor Allergy Rash Uncoded 10/15/20 09:20 vitamins- minerals Allergy Nausea Uncoded 10/15/20 09:20 Home Meds: Home Meds Acetaminophen [Pain Reliever] 500 mg PO BID PRN 10/15/13 [History] Escitalopram [Lexapro] 10 mg PO DAILY 10/15/13 [History] Pravastatin Sodium 20 mg PO BEDTIME 10/15/13 [History] Topiramate 150 mg PO DAILY 10/15/13 [History] Montelukast [Singulair] 10 mg PO BEDTIME 10/28/14 [History] Triamcinolone Acetonide [Kenalog 0.1% Crm] 1 applic TOP BID PRN 12/04/14 [History] Fluticasone Propionate [Flonase Allergy Relief] 2 spray SHANTEL DAILY 07/30/19 [History] Cyclobenzaprine [Flexeril] 10 mg PO TID PRN 01/07/20 [History] Levothyroxine Sodium [Synthroid] 75 mcg PO DAILY 01/07/20 [History] Pantoprazole Sodium [Protonix] 40 mg PO DAILY 01/07/20 [History] Carbidopa/Levodopa [Sinemet 25-100 mg Tablet] 1 tab PO QID 05/20/20 [History] Potassium Chloride [Klor-Con M20] 20 meq PO BID 05/20/20 [History] allopurinoL [Zyloprim] 150 mg PO DAILY 05/20/20 [History] Carboxymethylcellulose Sodium [Artificial Tears] 1 drop EYEBOTH DAILY 07/07/20 [History] Carbidopa/Levodopa [Carbidopa-Levo ER 25-100] 1 tab PO BEDTIME 07/09/20 [History] Fluconazole [Diflucan] 200 mg PO DAILY 07/09/20 [History] Ondansetron [Ondansetron ODT] 4 mg PO ASDIRECTED 07/16/20 [History] Amoxicillin/Clavulanate K [Augmentin 600-42.9 MG/5 ML Susp] 600 mg PO Q8H #100 ml 10/15/20 [Rx] Past Medical History HEENT History: Reports: Hard of Hearing, Other (See Below) Other HEENT History: SORE LEFT NARE, wears glasses Cardiovascular History: Reports: Arrhythmia, High Cholesterol, Hypertension, Other (See Below) Other Cardiovascular History: LOW HEART RATE Respiratory History: Reports: Asthma, COPD, SOB Gastrointestinal History: Reports: Cholelithiasis, Chronic Diarrhea, Diverticulosis, Irritable Bowel Syndrome, Other (See Below) Other Gastrointestinal History: dumping syndrome, colitis Genitourinary History: Reports: Pyelonephritis, UTI, Recurrent 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: Musculoskeletal History: Reports: Fracture, Other (See Below) Other Musculoskeletal History: H/O BROKEN TAILBONE AND LEFT LOWER LEG FX Neurological History: Reports: Other (See Below) Other Neuro History: tremors, Parkinson's disease Psychiatric History: Reports: Anxiety, Depression Endocrine/Metabolic History: Reports: Hypothyroidism, Other (See Below) Other Endocrine/Metabolic History: thyroid disease Oncologic (Cancer) History: Reports: Uterine Dermatologic History: Reports: Other (See Below) Other Dermatologic History: rash - Infectious Disease History Infectious Disease History: Reports: Chicken Pox, Measles, Mumps, Novel Coronavirus, Shingles - Past Surgical History Head Surgeries/Procedures: Reports: None HEENT Surgical History: Reports: Cataract Surgery Other Cardiovascular Surgeries/Procedures: holter monitor placed in [place] today 10/11/2019, loop recorder (heart monitor) Respiratory Surgical History: Reports: None GI Surgical History: Reports: Cholecystectomy, Colonoscopy, EGD, Esophageal Dilatation, Hernia Repair/Other, Other (See Below) Other GI Surgeries/Procedures: bile duct removed. egd dilation Jul 09 2020 Female Surgical History: Reports: Hysterectomy Endocrine Surgical History: Reports: None Neurological Surgical History: Reports: None Musculoskeletal Surgical History: Reports: None Oncologic Surgical History: Reports: None Dermatological Surgical History: Reports: None Social & Family History - Family History Family Medical History: No Pertinent Family History - Tobacco Use Tobacco Use Status *Q: Never Tobacco User Second Hand Smoke Exposure: No - Caffeine Use Caffeine Use: Reports: None Other Caffeine Use: one cappucino in the morning - Recreational Drug Use Recreational Drug Use: No - Living Situation & Occupation Living situation: Reports: , with Family (lives with Son Kyler and family.) ED ROS GENERAL - Review of Systems Review Of Systems: See Below Constitutional: Reports: No Symptoms Cardiovascular: Denies: Lightheadedness GI/Abdominal: Denies: Nausea : Reports: Frequency. Denies: Dysuria, Flank Pain Skin: Reports: No Symptoms ED EXAM, RENAL/ - Physical Exam Exam: See Below Exam Limited By: No Limitations General Appearance: Alert, WD/WN, No Apparent Distress Respiratory/Chest: No Respiratory Distress, Lungs Clear, Normal Breath Sounds, No Accessory Muscle Use Cardiovascular: Regular Rate, Rhythm, No Edema GI/Abdominal: Normal Bowel Sounds, Soft, Non-Tender, No Distention Back Exam: No: CVA Tenderness (R), CVA Tenderness (L) Neurological: Alert, Oriented, CN II-XII Intact, Normal Cognition, No Motor/Sensory Deficits Psychiatric: Normal Affect, Normal Mood Skin Exam: Warm, Dry, Intact, Normal Color, No Rash Course - Vital Signs Last Recorded V/S: Last Vital Signs Temp 36.9 C 10/15/20 09:18 Pulse 66 10/15/20 09:18 Resp 18 10/15/20 09:18 BP 151/58 H 10/15/20 09:18 Pulse Ox 98 10/15/20 09:18 - Orders/Labs/Meds Orders: Active Orders 24 hr Category Date Time Status Bladder Scan [RC] ASDIRECTED Care 10/15/20 09:47 Active CULTURE URINE [RM] Stat Lab 10/15/20 09:44 Received Labs: Laboratory Tests 10/15/20 Range/Units 09:20 Urine Color Yellow (YELLOW) Urine Appearance Cloudy A (CLEAR) Urine pH 7.0 (5.0-8.0) Ur Specific [place] 1.020 (1.008-1.030) Urine Protein Negative (NEGATIVE) mg/dL Urine Glucose (UA) Negative (NEGATIVE) mg/dL Urine Ketones Negative (NEGATIVE) mg/dL Urine Occult Blood Negative (NEGATIVE) Urine Nitrite Negative (NEGATIVE) Urine Bilirubin Negative (NEGATIVE) Urine Urobilinogen 0.2 (0.2-1.0) EU/dL Ur Leukocyte Esterase Moderate H (NEGATIVE) Urine RBC 0-5 (0-5) Urine WBC Packed H (0-5) Ur Epithelial Cells Many Amorphous Sediment Not seen Urine Bacteria Many Urine Mucus Not seen Meds: Medications Discontinued Medications Generic Name Dose Route Start Last Admin Trade Name Freq PRN Reason Stop Dose Admin Doxycycline Hyclate 100 mg 10/15/20 09:43 10/15/20 09:49 Doxycycline 100 Mg Cap PO 10/15/20 09:44 100 mg ONETIME ONE Administration Departure - Departure Time of Disposition: 10:05 Disposition: Home, Self-Care 01 Condition: Fair Clinical Impression: Cystitis - Discharge Information *PRESCRIPTION DRUG MONITORING PROGRAM REVIEWED*: Not Applicable *COPY OF PRESCRIPTION DRUG MONITORING REPORT IN PATIENT JOSE: Not Applicable Prescriptions: Amoxicillin/Clavulanate K [Augmentin 600-42.9 MG/5 ML Susp] 600 mg PO Q8H #100 ml Referrals: Anrdzej Wright MD [Primary Care Provider] - Forms: ED Department Discharge Additional Instructions: Drink ample fluids so that your urine is very light yellow in color. Take the antibiotic as directed. Recheck in the clinic on Monday to make sure you are improving. Return for fever. Sepsis Event Note (ED) - Evaluation Sepsis Screening Result: No Definite Risk - Focused Exam Vital Signs: Vital Signs Temp Pulse Resp BP Pulse Ox 10/15/20 09:18 36.9 C 66 18 151/58 H 98 10/15/20 09:16 36.9 C 66 18 98 - My Orders Last 24 Hours: My Active Orders 10/15/20 09:44 CULTURE URINE [RM] Stat 10/15/20 09:47 Bladder Scan [RC] ASDIRECTED - Assessment/Plan Last 24 Hours: My Active Orders 10/15/20 09:44 CULTURE URINE [RM] Stat 10/15/20 09:47 Bladder Scan [RC] ASDIRECTED
== END 2020-10-15 10:15 | disposition home or self-care (01) ==
LOC: JP.ED 09:03
DX: N30.90 Cystitis, unspecified without hematuria (principal); I10 Essential (primary) hypertension; E78.00 Pure hypercholesterolemia, unspecified; E03.9 Hypothyroidism, unspecified; E07.9 Disorder of thyroid, unspecified; Z88.5 Allergy status to narcotic agent; Z88.8 Allergy status to other drugs, medicaments and biological substances; Z91.013 Allergy to seafood; Z88.6 Allergy status to analgesic agent; Z91.09 Other allergy status, other than to drugs and biological substances; Z91.041 Radiographic dye allergy status; Z91.048 Other nonmedicinal substance allergy status
CPT/HCPCS: 51798; 81001; 87086; 87088; 87186; 99283; 99283-25; A9270-GY

== ENCOUNTER 2020-12-17 06:48 | Day surgery (SDC) | payer MEDICARE, BC ==
[2020-12-17] MEDS ORDERED: Dextrose 5%-Lactated Ringers 1,000 ML IV SCH (07:05)
[2020-12-17] MEDS ORDERED: fentaNYL 100 MCG/2 ML SDV ONE (07:08)
[2020-12-17] MEDS ORDERED: Propofol 200 MG/20 ML SDV ONE (07:08)
[2020-12-17] MEDS ORDERED: Carbidopa/Levodopa 25-100 MG Tab PO ONE (07:18)
[2020-12-17 07:41] LABS: CORONAVIRUS COVID-19 NAA NEGATIVE (NEGATIVE)
[2020-12-17] MEDS ORDERED: ceFAZolin 1 GM in Premix Bag 1 BAG IV ONE (08:00)
[2020-12-17 12:36] VITALS: BP 153/73; PULSE 59
--- NOTE | 2020-12-27 16:30 | OR ---
DATE OF PROCEDURE: 12/17/2020 SURGEON: Tristen Mota MD PREOPERATIVE DIAGNOSIS: Recent gastrointestinal bleeding. POSTOPERATIVE DIAGNOSIS: Recent gastrointestinal bleeding associated with: 1. 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 c. Intact gastrostomy tube with no significant irritation at the G-tube site. d. Mild antral gastritis (no evident gastrointestinal bleeding source). 2. Colonoscopy showing: a. Excoriated hemorrhoids (no bleeding, but likely had been bleeding recently). b. Uncomplicated left colonic diverticulosis (could also have been a recent bleeding source). OPERATIVE PROCEDURES: 1. Esophagogastroduodenoscopy with antral biopsies for CLOtest. 2. Flexible colonoscopy. ANESTHESIA: IV sedation. INDICATION FOR PROCEDURE: This is an 85-year-old female presenting with some GI bleeding with hemoglobin of 8. Plan is to proceed with upper and lower endoscopy with biopsies as indicated. If the G-tube was found to be excoriated and likely source of bleeding, the G- tube site would be changed simultaneously. Otherwise, potential risks including bleeding and perforation were discussed, and the patient wishes to proceed. PROCEDURE IN DETAIL: The patient was taken to the operating room and placed in a left lateral decubitus position. IV sedation was administered after which the upper GI endoscope was passed orally through the length of esophagus into the stomach with retroflexion view of the fundus, thereafter through the pyloric channel and into the proximal duodenum. The patient had some fungal overgrowth in the esophagus and that was a small Zenker's diverticulum, perhaps 1 to 2 cm in length which maybe part of the patient's problems with dysphagia, maintenance of oral intake requiring the G-tube. The gastrostomy tube was intact with no significant inflammation or signs of bleeding around it and there was some patchy mild redness in the antrum. The pyloric channel and visualized portions of the duodenum were unremarkable. Overall, there was no evidence of any upper GI bleeding source. Biopsies were obtained from the antrum and sent for CLOtest for H. pylori. Minimal bleeding from the biopsy site was seen and the procedure then concluded. Attention was taken to the colonoscopy. The initial digital rectal exam was performed and was unremarkable. Colonoscope was then passed into the rectum which showed some diffusely excoriated hemorrhoids. No blood or bleeding was seen, but these could be potential sources of some ongoing blood loss. The scope was then eventually passed to the cecum. The prep was quite good, only a small amount of liquid stool was present. The patient had a quite extensive left colonic diverticulosis. This at this point appeared to be uncomplicated diverticulosis, but certainly in the recent past might have been involved in some bleeding. Otherwise, there were no polyps or areas of colitis. The scope was then withdrawn, the above findings reconfirmed, and the procedure then concluded. It is notable that the hemoglobin today is 11, so whatever was going on has seemingly stopped as far as bleeding and she has reconstituted her hemoglobin . The plan will be to start some Mycostatin swish and swallow 5 mL q.i.d. x7 days and we will recheck her weekly labs once again, but add ferritin to the labs next week. Tristen Mota MD /[id number]
== END 2020-12-17 12:20 | disposition home or self-care (01) ==
LOC: JP.SDS 06:48
PROVIDERS: ATTEND Surgery
DX: K57.31 Diverticulosis of large intestine without perforation or abscess with bleeding (principal); K64.9 Unspecified hemorrhoids; B48.8 Other specified mycoses; K22.5 Diverticulum of esophagus, acquired; J44.9 Chronic obstructive pulmonary disease, unspecified; N18.9 Chronic kidney disease, unspecified; E03.9 Hypothyroidism, unspecified; Z01.812 Encounter for preprocedural laboratory examination; Z20.822 Contact with and (suspected) exposure to COVID-19; Z93.1 Gastrostomy status
CPT/HCPCS: 0241U; 36415; 43239; 45378; 84443; 85027; 87081; J0690; J2704; J3010; J7121

== ENCOUNTER 2021-11-29 05:25 | Day surgery (SDC) | payer MEDICARE, BC ==
[2021-11-29 05:47] VITALS: BP 192/71; PULSE 63
[2021-11-29] MEDS ORDERED: Dextrose 5%-Lactated Ringers 1,000 ML IV SCH (06:00)
[2021-11-29 06:25] LABS: CORONAVIRUS COVID-19 NAA NEGATIVE (NEGATIVE)
== END 2021-11-29 06:51 | disposition home or self-care (01) ==
LOC: JP.SDS 05:25
PROVIDERS: ATTEND Surgery
DX: R13.10 Dysphagia, unspecified (principal); Z53.09 Procedure and treatment not carried out because of other contraindication; Z01.812 Encounter for preprocedural laboratory examination; Z20.822 Contact with and (suspected) exposure to COVID-19
CPT/HCPCS: 0241U

== ENCOUNTER 2021-12-27 05:29 | Day surgery (SDC) | payer MEDICARE, BC ==
[2021-12-27] MEDS ORDERED: Dextrose 5%-Lactated Ringers 1,000 ML IV SCH (06:15)
[2021-12-27] MEDS ORDERED: Propofol 200 MG/20 ML SDV ONE (06:57)
[2021-12-27 09:17] VITALS: BP 164/57; PULSE 45
== END 2021-12-27 09:41 | disposition home or self-care (01) ==
LOC: JP.SDS 05:29
PROVIDERS: ATTEND Surgery
DX: K22.5 Diverticulum of esophagus, acquired (principal); K44.9 Diaphragmatic hernia without obstruction or gangrene
CPT/HCPCS: 43239; 87081; J2704; J7121

== ENCOUNTER 2022-03-13 11:20 | Emergency (ER) | payer MEDICARE, BC ==
[2022-04-08 04:33] LABS: ESTIMATED GFR 55 mL/min (>60)
== END 2022-03-13 13:45 | disposition home or self-care (01) ==
LOC: JP.ED 11:20
DX: R10.13 Epigastric pain (principal)
CPT/HCPCS: 36415; 74176; 80048; 85027; 99284

== ENCOUNTER 2022-11-21 02:00 | Emergency (ER) | payer MEDICARE, BC ==
[2022-11-21] MEDS ORDERED: Nitroglycerin 0.4 MG Tab.SL SL PRN (02:10)
[2022-11-21] MEDS ORDERED: Sodium Chloride 0.9% 10 ML Syringe FLUSH PRN (02:10)
[2022-11-21] MEDS ORDERED: Aspirin 81 MG Tab.Chew PO ONE (02:10)
[2022-11-21 02:20] LABS: BASOPHILS ABSOLUTE AUTO 0.03 K/uL (0.00-0.10); BASOPHILS PERCENT AUTO 0.3 % (0.1-1.3); EOSINOPHILS ABSOLUTE AUTO 0.24 K/uL (0.00-0.40); EOSINOPHILS PERCENT AUTO 2.3 % (0.0-5.4); HEMATOCRIT 39.4 % (34.3-46.0); HEMOGLOBIN 13.3 g/dL (11.2-15.5); IMMATURE GRAN ABSOLUTE AUTO 0.04 K/uL (0.00-0.23); IMMATURE GRAN PERCENT AUTO 0.4 % (0.0-0.7); LYMPHOCYTES ABSOLUTE AUTO 2.16 K/uL (0.8-3.3); LYMPHOCYTES PERCENT AUTO 21.1 % (11.4-47.7); MEAN CORPUSCULAR HEMOGLOBIN 30.2 pg (31.6-35.5); MEAN CORPUSCULAR HGB CONC 33.8 g/dL (31.6-35.5); MEAN CORPUSCULAR VOLUME 89.3 fL (81.4-99.0); MONOCYTES ABSOLUTE AUTO 0.86 K/uL (0.20-0.90); MONOCYTES PERCENT AUTO 8.4 % (3.3-12.6); NEUTROPHILS ABSOLUTE AUTO 6.91 K/uL (1.0-7.6); NEUTROPHILS PERCENT AUTO 67.5 % (40.0-78.1); PLATELET COUNT,PLT 223 K/uL (130-375); RED BLOOD CELL COUNT 4.41 M/uL (3.77-5.24); WHITE BLOOD CELL COUNT,WBC 10.2 K/uL (3.2-11.0)
[2022-11-21 02:39] LABS: ALANINE AMINOTRANSFERASE,ALT 10 U/L (12-78); ALBUMIN 3.3 g/dL (3.4-5.0); ALKALINE PHOSPHATASE 98 U/L (46-116); ASPARTATE AMNIOTRANSFERASE,AST 20 U/L (15-37); BILIRUBIN TOTAL 0.4 mg/dL (0.2-1.0); BLOOD UREA NITROGEN,BUN 22 mg/dL (7-18); CALCIUM 8.8 mg/dL (8.5-10.1); CARBON DIOXIDE,CO2 29 mmol/L (21-32); CHLORIDE,CL 100 mmol/L (100-108); CREATININE 0.8 mg/dL (0.6-1.0); ESTIMATED GFR 72 mL/min (>60); GLUCOSE RANDOM 111 mg/dL (74-106); PROTEIN TOTAL,TP 7.2 g/dL (6.4-8.2); SODIUM,NA 137 mmol/L (140-148); TROPONIN I HIGH SENSITIVITY 11.3 pg/mL (<=60.3)
[2022-11-21 02:42] LABS: A/G RATIO 0.9 (1.2-2.2)
[2022-11-21 02:53] VITALS: BP 142/78; PULSE 60
== END 2022-11-21 04:55 | disposition home or self-care (01) ==
LOC: JP.ED 02:00
DX: R07.89 Other chest pain (principal); I10 Essential (primary) hypertension; E78.00 Pure hypercholesterolemia, unspecified; E03.9 Hypothyroidism, unspecified; J44.9 Chronic obstructive pulmonary disease, unspecified; Z86.16 Personal history of COVID-19; Z88.5 Allergy status to narcotic agent; Z91.041 Radiographic dye allergy status; Z91.048 Other nonmedicinal substance allergy status; Z88.8 Allergy status to other drugs, medicaments and biological substances; Z91.018 Allergy to other foods; Z79.899 Other long term (current) drug therapy
CPT/HCPCS: 36415; 71045; 80053; 84484; 85025; 93005; 99285; A9270

== ENCOUNTER 2023-06-04 10:28 | Emergency (ER) | payer MEDICARE, BC ==
[2023-06-04 10:53] VITALS: BP 170/69; PULSE 61
[2023-06-04 12:24] LABS: INFLUENZA A NAA NEGATIVE (NEGATIVE); INFLUENZA B NAA NEGATIVE (NEGATIVE); RESPIRATORY SYNCYTIAL VIR NAA NEGATIVE (NEGATIVE)
[2023-06-04 12:29] LABS: CORONAVIRUS COVID-19 NAA POSITIVE (NEGATIVE)
== END 2023-06-04 12:53 | disposition home or self-care (01) ==
LOC: JP.ED 10:28
DX: U07.1 COVID-19 (principal); J40 Bronchitis, not specified as acute or chronic; I10 Essential (primary) hypertension; E78.00 Pure hypercholesterolemia, unspecified; J44.9 Chronic obstructive pulmonary disease, unspecified; E03.9 Hypothyroidism, unspecified; Z86.16 Personal history of COVID-19; Z90.710 Acquired absence of both cervix and uterus; Z79.899 Other long term (current) drug therapy; Z88.5 Allergy status to narcotic agent; Z91.013 Allergy to seafood; Z88.8 Allergy status to other drugs, medicaments and biological substances; Z88.1 Allergy status to other antibiotic agents; Z91.048 Other nonmedicinal substance allergy status; Z91.041 Radiographic dye allergy status; Z91.018 Allergy to other foods
CPT/HCPCS: 0241U; 71045; 99284

== ENCOUNTER 2023-09-14 00:45 | Day surgery (SDC) | payer MEDICARE, BC ==
[2023-09-14] MEDS ORDERED: Propofol 200 MG/20 ML SDV ONE (07:20)
[2023-09-14] MEDS ORDERED: fentaNYL 100 MCG/2 ML SDV ONE (07:20)
[2023-09-14] MEDS: Lactated Ringers 1,000 ML IV SCH (07:21)
[2023-09-14] MEDS ORDERED: Ondansetron 4 MG/2 ML SDV ONE (07:38)
[2023-09-14 08:57] VITALS: BP 133/79; PULSE 59
== END 2023-09-14 09:14 | disposition home or self-care (01) ==
LOC: JP.SDS 00:45
PROVIDERS: ATTEND Surgery
DX: K52.832 Lymphocytic colitis (principal); K57.30 Diverticulosis of large intestine without perforation or abscess without bleeding; N18.2 Chronic kidney disease, stage 2 (mild); E78.5 Hyperlipidemia, unspecified; F41.9 Anxiety disorder, unspecified
CPT/HCPCS: 45380; J2405; J2704; J3010; J7120; 88305

== ENCOUNTER 2024-04-17 13:36 | Emergency (ER) | payer MEDICARE, BC ==
[2024-04-17 13:53] VITALS: BP 155/77; PULSE 72
== END 2024-04-17 14:53 | disposition home or self-care (01) ==
LOC: JP.ED 13:36
DX: K94.23 Gastrostomy malfunction (principal); E78.00 Pure hypercholesterolemia, unspecified; I10 Essential (primary) hypertension; J44.9 Chronic obstructive pulmonary disease, unspecified; K21.9 Gastro-esophageal reflux disease without esophagitis; E03.9 Hypothyroidism, unspecified; Z86.16 Personal history of COVID-19; Z90.49 Acquired absence of other specified parts of digestive tract; Z90.710 Acquired absence of both cervix and uterus; Z79.899 Other long term (current) drug therapy; Z88.5 Allergy status to narcotic agent; Z91.013 Allergy to seafood; Z91.041 Radiographic dye allergy status; Z88.8 Allergy status to other drugs, medicaments and biological substances; Z88.4 Allergy status to anesthetic agent; Z91.048 Other nonmedicinal substance allergy status; Z88.3 Allergy status to other anti-infective agents
CPT/HCPCS: 43762; 99282; 99282-25

== ENCOUNTER 2024-08-23 15:58 | Emergency (ER) | payer MEDICARE, BC ==
[2024-08-23 16:43] VITALS: BP 189/88; PULSE 82
== END 2024-08-23 18:00 | disposition home or self-care (01) ==
LOC: JP.ED 15:58
DX: K22.5 Diverticulum of esophagus, acquired (principal); I10 Essential (primary) hypertension; E78.00 Pure hypercholesterolemia, unspecified; J44.89 Other specified chronic obstructive pulmonary disease; E03.9 Hypothyroidism, unspecified; Z88.5 Allergy status to narcotic agent; Z91.013 Allergy to seafood; Z91.041 Radiographic dye allergy status; Z91.048 Other nonmedicinal substance allergy status; Z79.899 Other long term (current) drug therapy; Z79.890 Hormone replacement therapy
CPT/HCPCS: 99283

== ENCOUNTER 2025-05-06 13:53 | Emergency (ER) | payer MEDICARE, BC ==
[2025-05-06 14:29] LABS: BASOPHILS ABSOLUTE AUTO 0.05 K/uL (0.00-0.10); BASOPHILS PERCENT AUTO 0.6 % (0.1-1.3); EOSINOPHILS ABSOLUTE AUTO 0.23 K/uL (0.00-0.40); EOSINOPHILS PERCENT AUTO 2.6 % (0.0-5.4); IMMATURE GRAN PERCENT AUTO 0.2 % (0.0-0.7); LYMPHOCYTES ABSOLUTE AUTO 1.83 K/uL (0.8-3.3); LYMPHOCYTES PERCENT AUTO 20.5 % (11.4-47.7); MONOCYTES ABSOLUTE AUTO 0.74 K/uL (0.20-0.90); MONOCYTES PERCENT AUTO 8.3 % (3.3-12.6); NEUTROPHILS ABSOLUTE AUTO 6.06 K/uL (1.0-7.6); NEUTROPHILS PERCENT AUTO 67.8 % (40.0-78.1); PLATELET COUNT,PLT 255 K/uL (130-375); RED BLOOD CELL COUNT 4.54 M/uL (3.77-5.24); WHITE BLOOD CELL COUNT,WBC 8.9 K/uL (3.2-11.0)
[2025-05-06 14:30] LABS: IMMATURE GRAN ABSOLUTE AUTO 0.02 K/uL (0.00-0.23)
[2025-05-06 15:09] LABS: A/G RATIO 1.1 (1.2-2.2); ALANINE AMINOTRANSFERASE,ALT 10 U/L (12-78); ASPARTATE AMNIOTRANSFERASE,AST 18 U/L (15-37); BILIRUBIN TOTAL 0.4 mg/dL (0.2-1.0); BLOOD UREA NITROGEN,BUN 27 mg/dL (7-18); CARBON DIOXIDE,CO2 32 mmol/L (21-32); CHLORIDE,CL 102 mmol/L (100-108); CREATININE 0.8 mg/dL (0.6-1.0); EST CRCL DRUG DOSING (CG) 43.74 mL/min; ESTIMATED GFR 71 mL/min (>60); GLUCOSE RANDOM 111 mg/dL (74-106); POTASSIUM,K 4.5 mmol/L (3.6-5.2); PROTEIN TOTAL,TP 7.3 g/dL (6.4-8.2); SODIUM,NA 139 mmol/L (140-148)
[2025-05-06 15:14] LABS: LACTIC ACID 1.1 mmol/L (0.4-2.0)
[2025-05-06 15:16] LABS: CORONAVIRUS COVID-19 NAA NEGATIVE (NEGATIVE); INFLUENZA A NAA NEGATIVE (NEGATIVE); INFLUENZA B NAA NEGATIVE (NEGATIVE); RESPIRATORY SYNCYTIAL VIR NAA NEGATIVE (NEGATIVE)
[2025-05-06 15:19] LABS: PRO B-TYPE NATRIUR PEPT,BNPPRO 664.0 pg/mL (5-450); TSH ULTRASENSITIVE 1.871 uIU/mL (0.358-3.740)
[2025-05-06 15:21] LABS: TROPONIN I HIGH SENSITIVITY 103.2 pg/mL (<=60.3)
[2025-05-06] MEDS: Aspirin 325 MG Tab.EC PO ONE (16:10)
[2025-05-06] MEDS: Heparin Sodium 5,000 Units/ML Vial IVPUSH ONE (16:14)
[2025-05-06] MEDS ORDERED: Naloxone 0.4 MG/ML SDV IVPUSH PRN (16:31)
[2025-05-06 20:45] LABS: APPEARANCE,URINE CLOUDY (CLEAR); GLUCOSE,URINE NEGATIVE (NEGATIVE); OCCULT BLOOD,URINE NEGATIVE (NEGATIVE)
[2025-05-06 20:49] LABS: SQUAMOUS EPITHELIAL CELLS,UR FEW /HPF; UROTHELIAL CELLS,URINE NOT SEEN /HPF
[2025-05-06 22:21] VITALS: BP 200/69; PULSE 59
[2025-05-06] MEDS: Acetaminophen Soln 650 MG/20.3 ML UD Cup PO ONE (22:24)
== END 2025-05-06 23:24 | disposition hospice, inpatient (51) ==
LOC: JP.ED 13:53
DX: I21.4 Non-ST elevation (NSTEMI) myocardial infarction (principal); I10 Essential (primary) hypertension; E78.00 Pure hypercholesterolemia, unspecified; J45.909 Unspecified asthma, uncomplicated; E03.9 Hypothyroidism, unspecified; Z88.5 Allergy status to narcotic agent; Z91.041 Radiographic dye allergy status; Z79.899 Other long term (current) drug therapy; Z79.890 Hormone replacement therapy
CPT/HCPCS: 36415; 71046; 80053; 81001; 83605; 83880; 84443; 84484; 85025; 87637; 93005; 96365; 96366; 99285; A9270; J1644